=== PATIENT | female | born 1935 | race Caucasian/White ===

== ENCOUNTER 2018-08-14 15:23 | Outpatient (RCR) | payer MEDICARE, OTHER ==
[~2018-08-14] VITALS: Ht 170.2 cm; Wt 65.8 kg
[2018-08-14] MEDS ORDERED: NS IV 1000 ML 1,000 ML ONE (15:26)
[2018-08-14] MEDS ORDERED: metroNIDAZOLE 500MG/100ML IVPB 100 ML IV ONE (15:45)
[2018-08-14] MEDS ORDERED: NS IV 1000 ML 1,000 ML IV SCH (15:45)
[2018-08-14 15:56] LABS: HEMOGLOBIN 12.5 G/DL (11.5-16.0); MEAN PLATELET VOLUME 9.8 FL (7.4-10.4); RED CELL DISTRIBUTION WIDTH 14.3 % (10.0-14.5); WHITE BLOOD COUNT 12.7 10^3/uL (4.3-11.0)
[2018-08-14 16:11] VITALS: BP 154/75
[2018-08-14 16:16] LABS: ALBUMIN 3.6 GM/DL (3.2-4.5); BILIRUBIN,TOTAL 0.3 MG/DL (0.1-1.0); CALCIUM 9.7 MG/DL (8.5-10.1); CREATININE SERUM 1.04 MG/DL (0.60-1.30); POTASSIUM 3.9 MMOL/L (3.6-5.0); TOTAL PROTEIN 6.4 GM/DL (6.4-8.2)
[2018-08-14 17:15] VITALS: BP 154/75
[2018-08-14 18:17] VITALS: BP 154/75
[2018-08-23] MEDS ORDERED: SPIR25TA5 PO (13:46)
[2018-08-23] MEDS ORDERED: ISOS30TA3 (13:46)
[2018-08-23] MEDS ORDERED: NIFE90TA33 PO (13:46)
[2018-08-23] MEDS ORDERED: PANT40TA3 PO (13:46)
[2018-08-23] MEDS ORDERED: LIPA1CAP67 PO (13:46)
[2018-08-23] MEDS ORDERED: COLE1TAB PO (13:46)
[2018-08-23] MEDS ORDERED: NEBI20TA2 PO (13:46)
[2018-08-23] MEDS ORDERED: SERT100T8 PO (13:46)
[2018-08-23] MEDS ORDERED: METR-145 PO (13:46)
[2018-08-23] MEDS ORDERED: MEMA1CAP3 PO (13:46)
[2018-08-23] MEDS ORDERED: TRAM50TA2 PO (13:46)
[2018-08-23] MEDS ORDERED: PROM12.59 PO (13:46)
[2018-08-24] MEDS ORDERED: ACET-2267 PO (10:00)
[2018-08-24] MEDS ORDERED: CHOL5000 PO (10:00)
[2018-08-24] MEDS ORDERED: ASPI-983 PO (10:00)
[2018-08-24] MEDS ORDERED: LIPA1CAP67 PO (10:00)
[2018-08-28] MEDS ORDERED: TRAM50TA2 PO (09:14)
[2018-08-28] MEDS ORDERED: ACHD5005 PO (09:14)
[2018-08-28] MEDS ORDERED: METR500T PO (09:14)
[2018-08-28] MEDS ORDERED: ENOX30DI4 SC (09:20)
[2018-09-11] MEDS ORDERED: ONDN4T PO (10:54)
[2018-09-11] MEDS ORDERED: ASPI325T32 PO (10:54)
[2018-09-11] MEDS ORDERED: TRAM50TA2 PO (10:54)
[2018-09-11] MEDS ORDERED: HYDR-3812 PO (10:54)
[2018-09-13] MEDS ORDERED: PROM25TA14 PO (08:40)
[2018-09-13] MEDS ORDERED: ACET-2267 PO (08:40)
== END 2018-09-13 | disposition home or self-care (01) ==
LOC: SDC 15:23
PROVIDERS: ATTEND Nurse Practitioner Family
DX: K85.90 Acute pancreatitis without necrosis or infection, unspecified (principal)
CPT/HCPCS: 36415; 80053; 82150; 83690; 85027; 96360

== ENCOUNTER 2018-08-23 13:05 | Inpatient (IN) | payer MEDICARE, OTHER ==
[~2018-08-23] VITALS: Ht 165.1 cm; Wt 74.5 kg
[2018-08-23 13:18] LABS: BASOPHILS % (AUTO) 0 % (0-10); EOSINOPHILS # (AUTO) 0.1 10^3/uL (0.0-0.3); EOSINOPHILS % (AUTO) 1 % (0-10); HEMATOCRIT 39 % (35-52); HEMOGLOBIN 12.6 G/DL (11.5-16.0); LYMPHOCYTES # (AUTO) 2.4 X 10^3 (1.0-4.0); LYMPHOCYTES % (AUTO) 17 % (12-44); MEAN CORPUSCULAR HEMOGLOBIN 30 PG (25-34); MEAN CORPUSCULAR HGB CONC 32 G/DL (32-36); MEAN CORPUSCULAR VOLUME 94 FL (80-99); MEAN PLATELET VOLUME 9.8 FL (7.4-10.4); MONOCYTES # (AUTO) 1.5 X 10^3 (0.0-1.0); MONOCYTES % (AUTO) 11 % (0-12); NEUTROPHILS # (AUTO) 9.8 X 10^3 (1.8-7.8); NEUTROPHILS % (AUTO) 71 % (42-75); PLATELET COUNT 475 10^3/uL (130-400); RED CELL DISTRIBUTION WIDTH 14.7 % (10.0-14.5); WHITE BLOOD COUNT 13.7 10^3/uL (4.3-11.0)
--- NOTE | 2018-08-23 13:22 | ED Trauma-Multisystem ---
General Chief Complaint: Trauma-Non Activation Stated Complaint: FALL/HEAD INJ Source of Information: Patient Exam Limitations: No Limitations History of Present Illness Date Seen by Provider: Aug 23, 2018 Time Seen by Provider: 13:17 Initial Comments Patient was walking back to her room assisted by walker when she lost her balance and fell. She struck her head on the ground. Nursing staff at the longterm. Patient said she was unconscious for an unknown period of time. EMS was summoned. She was semiconscious on their arrival. She was noted to have a shortened and rotated left leg. She is unconscious on arrival. Her only complaint is left hip pain. She is alert and oriented to person only. She is unable to provide history due to her symptoms. Allergies and Home Medications Allergies Coded Allergies: Sulfa (Sulfonamide Antibiotics) (Unverified Allergy, Unknown, 08/14/18) codeine (Unverified Allergy, Unknown, 08/14/18) Patient Home Medication List Home Medication List Reviewed: Yes Review of Systems Review of Systems Constitutional: no symptoms reported (patient unable to provide complete review of systems due to dementia and head injury) Musculoskeletal: joint pain All Other Systems Reviewed Negative Unless Noted: Yes Physical Exam Vital Signs Vital Signs - First Documented 08/23/18 13:32 Temp 98.3 Pulse 66 Resp 18 B/P (MAP) 126/64 (84) Pulse Ox 99 Height, Weight, BMI Height: 5'7.00" Weight: 145lbs. 0.0oz. 65.640039mq; BMI Method: General Appearance: No Apparent Distress, WD/WN Head: No Evidence of Injury Eyes: Bilateral Eye Normal Inspection, Bilateral Eye PERRL, Bilateral Eye EOMI Ears, Nose, Throat: Hearing Grossly Normal Neck: Other (in c-collar) Cardiovascular: Regular Rate, Rhythm, No Edema Respiratory: Lungs Clear, Normal Breath Sounds Gastrointestinal: Soft Extremity: Other (left leg shortened and externally rotated. Pain with movement of hip) Neurologic/Psychiatric: Alert, gettering operator II-XII Norm as Tested; No EOM Palsy, No Facial Droop, No Motor Weakness Skin: Normal Color, Warm/Dry Lymphatic: No Adenopathy Telly Coma Score Best Eye Response ([place]): (4) Open Spontaneously Best Verbal Response ([place]): (4) Confused Conversation Best Motor Response ([place]): (6) Obeys Commands Progress/Results/Core Measures Results/Orders Lab Results Laboratory Tests Test 08/23/18 13:08 08/23/18 14:33 Range/Units White Blood Count 13.7 H 4.3-11.0 10^3/uL Red Blood Count 4.18 L 4.35-5.85 10^6/uL Hemoglobin 12.6 11.5-16.0 G/DL Hematocrit 39 35-52 % Mean Corpuscular Volume 94 80-99 FL Mean Corpuscular Hemoglobin 30 25-34 PG Mean Corpuscular Hemoglobin Concent 32 32-36 G/DL Red Cell Distribution Width 14.7 H 10.0-14.5 % Platelet Count 475 H 130-400 10^3/uL Mean Platelet Volume 9.8 7.4-10.4 FL Neutrophils (%) (Auto) 71 42-75 % Lymphocytes (%) (Auto) 17 12-44 % Monocytes (%) (Auto) 11 0-12 % Eosinophils (%) (Auto) 1 0-10 % Basophils (%) (Auto) 0 0-10 % Neutrophils # (Auto) 9.8 H 1.8-7.8 X 10^3 Lymphocytes # (Auto) 2.4 1.0-4.0 X 10^3 Monocytes # (Auto) 1.5 H 0.0-1.0 X 10^3 Eosinophils # (Auto) 0.1 0.0-0.3 10^3/uL Basophils # (Auto) 0.0 0.0-0.1 10^3/uL Prothrombin Time 14.1 12.2-14.7 SEC INR Comment 1.1 0.8-1.4 Activated Partial Thromboplast Time 29 24-35 SEC Sodium Level 141 135-145 MMOL/L Potassium Level 3.3 L 3.6-5.0 MMOL/L Chloride Level 106 98-107 MMOL/L Carbon Dioxide Level 22 21-32 MMOL/L Anion Gap 13 5-14 MMOL/L Blood Urea Nitrogen 13 7-18 MG/DL Creatinine 1.13 0.60-1.30 MG/DL Estimat Glomerular Filtration Rate 46 BUN/Creatinine Ratio 12 Glucose Level 161 H 70-105 MG/DL Calcium Level 9.1 8.5-10.1 MG/DL Corrected Calcium 9.7 8.5-10.1 MG/DL Total Bilirubin 0.2 0.1-1.0 MG/DL Aspartate Amino Transf (AST/SGOT) 33 5-34 U/L Alanine Aminotransferase (ALT/SGPT) 22 0-55 U/L Alkaline Phosphatase 56 40-136 U/L Total Protein 5.8 L 6.4-8.2 GM/DL Albumin 3.2 3.2-4.5 GM/DL Urine Color YELLOW Urine Clarity CLEAR Urine pH 5 5-9 Urine Specific [place] 1.015 L 1.016-1.022 Urine Protein 2+ H NEGATIVE Urine Glucose (UA) NEGATIVE NEGATIVE Urine Ketones NEGATIVE NEGATIVE Urine Nitrite POSITIVE H NEGATIVE Urine Bilirubin NEGATIVE NEGATIVE Urine Urobilinogen NORMAL NORMAL MG/DL Urine Leukocyte Esterase 2+ H NEGATIVE Urine RBC (Auto) 1+ H NEGATIVE Urine RBC 0-2 /HPF Urine WBC 0-2 /HPF Urine Crystals NONE /LPF Urine Bacteria TRACE /HPF Urine Casts PRESENT /LPF Urine Hyaline Casts 10-25 H /LPF Urine Mucus NEGATIVE /LPF Urine Culture Indicated YES My Orders Orders - CAROLINE JOHNS MD Cbc With Automated Diff (08/23/18 13:09) Comprehensive Metabolic Panel (08/23/18 13:09) Protime With Inr (08/23/18 13:09) Partial Thromboplastin Time (08/23/18 13:09) Ua Culture If Indicated (08/23/18 13:09) Chest 1 View, Ap/Pa Only (08/23/18 13:09) Pelvis With Left Hip 2-3 Views (08/23/18 13:09) Ct Head/Cervical Spine Wo (08/23/18 13:09) Urine Culture (08/23/18 14:33) Vital Signs/I&O 08/23/18 13:32 Temp 98.3 Pulse 66 Resp 18 B/P (MAP) 126/64 (84) Pulse Ox 99 Departure Communication (Admissions) Time/Spoke to Admitting Phy: 15:[address] Salazar who Will admit. Also discussed with Dr. Solano who to surgery on PT tomorrow. Impression Primary Impression: Head injury Additional Impression: Intertrochanteric fracture of left femur Disposition: ADMITTED INPATIENT Condition: Stable Admissions Decision to Admit Reason: Admit from ER (General) Decision to Admit/Date: Aug 23, 2018 Time/Decision to Admit Time: 15:18 Departure-Patient Inst. Referrals: HANG SALAZAR MD (PCP/Family) Primary Care Physician CAROLINE JOHNS MD Aug 23, 2018 13:21
[2018-08-23 13:28] LABS: INR 1.1 (0.8-1.4); PROTHROMBIN TIME PATIENT 14.1 SEC (12.2-14.7)
[2018-08-23 13:37] LABS: ALBUMIN 3.2 GM/DL (3.2-4.5); BILIRUBIN,TOTAL 0.2 MG/DL (0.1-1.0); CALCIUM 9.1 MG/DL (8.5-10.1); CREATININE SERUM 1.13 MG/DL (0.60-1.30); POTASSIUM 3.3 MMOL/L (3.6-5.0); TOTAL PROTEIN 5.8 GM/DL (6.4-8.2)
[2018-08-23] MEDS ORDERED: PROM12.59 PO (13:46)
[2018-08-23] MEDS ORDERED: NIFE90TA33 PO (13:46)
[2018-08-23] MEDS ORDERED: LIPA1CAP67 PO (13:46)
[2018-08-23] MEDS ORDERED: PANT40TA3 PO (13:46)
[2018-08-23] MEDS ORDERED: ISOS30TA3 (13:46)
[2018-08-23] MEDS ORDERED: SERT100T8 PO (13:46)
[2018-08-23] MEDS ORDERED: SPIR25TA5 PO (13:46)
[2018-08-23] MEDS ORDERED: NEBI20TA2 PO (13:46)
[2018-08-23] MEDS ORDERED: COLE1TAB PO (13:46)
[2018-08-23] MEDS ORDERED: TRAM50TA2 PO (13:46)
[2018-08-23] MEDS ORDERED: MEMA1CAP3 PO (13:46)
[2018-08-23] MEDS ORDERED: METR-145 PO (13:46)
--- NOTE | 2018-08-23 14:14 | Diagnostic Imaging Report ---
Indication: Left hip injury from a fall AP view pelvis and 2 views of the left hip show a comminuted intertrochanteric fracture of the left hip with reduction of the femoral angle. Impression: Comminuted intertrochanteric fracture left hip. Critical finding Report was called to Dr. Kaplan by jesus at 2:13 p.m. Dictated by: Dictated on workstation # [id number]
--- NOTE | 2018-08-23 14:15 | Diagnostic Imaging Report ---
INDICATION: Left hip fracture. Portable chest at 01:56 p.m. FINDINGS: Heart size and pulmonary vascularity are normal. Lungs are clear. There are no effusions or pneumothoraces. IMPRESSION: Negative chest. Dictated by: Dictated on workstation # [id number]
--- OUTSIDE RECORDS SUMMARY | 2018-08-23 14:38 | XMS REPORT | CCD ---
Author Loretta Law Organization Yolanda Michelle MD, [facility] Address [address] [place] [address] Phone Care Team Providers Care Legal Administrative Secretary Name Role Phone PP Unavailable CCM Unavailable Summary Purpose Interface Exchange Insurance Providers Payer name Policy type / Coverage type Covered green party ID Effective Begin Date Effective End Date WPS Medicare Part B Medicare Part B [id number] Unknown [employer] Medicare Part B [id number] Unknown Family history Mother Diagnosis Age At Onset Cancer Unknown Colon cancer Unknown Father Diagnosis Age At Onset Hypertension Unknown Cancer Unknown Arthritis Unknown Social History No Social History data Allergies, Adverse Reactions, Alerts Substance Reaction Codes Entered Date Inactivated Date Status CODEINE nausea RxNorm: 2670 08/14/2018 No Inactive Date Active SULFA (SULFONAMIDES) nausea, Unknown 08/14/2018 No Inactive Date Active Past Medical History Illness Codes Condition Status Onset Date Resolved Date Dementia in other diseases classified elsewhere without behavioral disturbance ICD-9: 294.10 ICD-10: F02.80 Active 08/14/2018 Unknown Essential (primary) hypertension ICD-9: 401.1 ICD-10: I10 Active 08/14/2018 Unknown Idiopathic acute pancreatitis without necrosis or infection ICD-9: 577.0 ICD-10: K85.00 Active 08/14/2018 Unknown Problems Condition Codes Effective Dates Condition Status Dementia in other diseases classified elsewhere without behavioral disturbance ICD-9: 294.10 ICD-10: F02.80 08/14/2018 Active Essential (primary) hypertension ICD-9: 401.1 ICD-10: I10 08/14/2018 Active Idiopathic acute pancreatitis without necrosis or infection ICD-9: 577.0 ICD-10: K85.00 08/14/2018 Active Medications Medication Codes Instructions Start Date Stop Date Status Fill Instructions aspirin 81 mg tablet RxNorm: 946913 1 Tablet(s) PO daily 201809/12/2018 Active Bystolic 20 mg tablet RxNorm: 682618 1 Tablet(s) PO daily 201809/12/2018 Active Creon 36,000 unit-114,000 unit-180,000 unit capsule, delayed release RxNorm: 7334920 2 Capsule(s) PO TID No Start Date Active promethazine 12.5 mg tablet RxNorm: 481911 1 Tablet(s) PO Q4H as needed No Start Date Active colestipol 1 gram tablet RxNorm: 0986951 1 Tablet(s) PO BID No Start Date Active Tylenol 500 mg RxNorm : 2 PO Q4H as needed No Start Date Active Creon 36,000 unit-114,000 unit-180,000 unit capsule, delayed release RxNorm: 9915944 1 Capsule(s) PO as needed No Start Date Active Vitamin D3 5,000 unit tablet RxNorm: 453801 1 Tablet(s) PO daily No Start Date Active Namzaric 28 mg-10 mg capsule sprinkle,extended release RxNorm: 6754827 1 Capsule(s ) PO daily No Start Date Active spironolactone 25 mg tablet RxNorm: 184831 1/2 Tablet(s) PO daily No Start Date Active Protonix 40 mg tablet,delayed release RxNorm: 187898 1 Tablet(s) PO daily No Start Date Active nifedipine ER 90 mg tablet,extended release 24 hr RxNorm: 3904843 1 Tablet(s) PO QHS No Start Date Active sertraline 100 mg tablet RxNorm: 006580 2 Tablet(s) PO daily No Start Date Active tramadol 50 mg tablet RxNorm: 424758 1 Tablet(s) PO Q6 as needed No Start Date Active Medication Administered No Medication Administered data Immunizations No Immunization data Assessments Condition Codes Effective Dates Essential (primary) hypertension ICD-10: I10 ICD-9: 401.1 08/14/2018 Dementia in other diseases classified elsewhere without behavioral disturbance ICD-10: F02.80 ICD-9: 294.10 08/14/2018 Idiopathic acute pancreatitis without necrosis or infection ICD-10: K85.00 ICD-9: 577.0 08/14/2018 Reason For Visit Reason For Visit Effective Dates Notes hypertension 08/14/2018 Results No Results data Review of Systems System Result Effective Dates Constitutional recent illness 08/14/2018 Constitutional No anorexia 08/14/2018 Constitutional No night sweats 2018 Constitutional No chills 08/14/2018 Constitutional No diaphoresis 08/14/2018 Constitutional fatigue 08/14/2018 Constitutional No fever 08/14/2018 Constitutional No insomnia 08/14/2018 Constitutional No malaise 08/14/2018 Constitutional No weight loss 08/14/2018 Constitutional No weight gain 08/14/2018 Eyes No eye discharge 08/14/2018 Eyes No eye erythema 08/14/2018 Ears/Nose/Throat/Neck No dizziness 2018 Cardiovascular No chest pain/pressure Cardiovascular No dyspnea 08/14/2018 Cardiovascular hypertension 08/14/2018 Cardiovascular fatigue 08/14/2018 Respiratory No cough 08/14/2018 Gastrointestinal abdominal pain 2018 Gastrointestinal No constipation 2018 Gastrointestinal diarrhea 08/14/2018 Gastrointestinal No vomiting 08/14/2018 Gastrointestinal No nausea 08/14/2018 Genitourinary/Nephrology No dysuria 08/14 Musculoskeletal No joint complaint 2018 Dermatologic No sores 08/14/2018 Dermatologic No rash 08/14/2018 Neurologic memory loss 08/14/2018 Psychiatric anxiety 08/14/2018 Endocrine No cold sensitivity 08/14/2018 Physical Exam Exam Name System Name Item Name Status Result Effective Dates Notes Full Exam - General 1994 Constitutional general appearance Overall: well developed 08/14/2018 None Full Exam - General 1994 Constitutional general appearance Overall: in no acute distress 08/14/2018 None Full Exam - General 1994 Constitutional general appearance Overall: well nourished 08/14/2018 None Full Exam - General 1994 Psychiatric orientation/consciousness Overall: oriented to person, place and time 08/14/2018 None Full Exam - General 1994 Neurologic cranial nerves Overall: crainial nerves 2 - 12 grossly intact 08/14/2018 None Full Exam - General 1994 Integument inspection of skin Overall: few scattered moles, no gross abnormalities 08/14/2018 None Full Exam - General 1994 Musculoskeletal head and neck Overall: head atraumatic 08/14/2018 None Full Exam - General 1994 Abdomen abdominal exam Upper quadrant: tender to palpation 08/14/2018 None Full Exam - General 1994 Abdomen abdominal exam Lower quadrant: tender to palpation 08/14/2018 None Full Exam - General 1994 Cardiovascular auscultation of heart Overall: regular rate 08/14/2018 None Full Exam - General 1994 Cardiovascular auscultation of heart Overall: normal heart sounds 08/14/2018 None Full Exam - General 1994 Respiratory auscultation Overall: breath sounds clear bilaterally 08/14/2018 None Full Exam - General 1994 Respiratory respiratory effort/rhythm Overall: no retractions 08/14/2018 None Full Exam - General 1994 Respiratory respiratory effort/rhythm Overall: normal rate 08/14/2018 None Full Exam - General 1994 Ears/Nose/Throat otoscopic exam Overall: external auditory canals clear 08/14/2018 None Full Exam - General 1994 Ears/Nose/Throat otoscopic exam Overall: tympanic membranes clear 08/14/2018 None Full Exam - General 1994 Ears/Nose/Throat oral cavity/pharynx/larynx Overall: oral mucosa clear 08/14/2018 None Full Exam - General 1994 Eyes pupils and irises Overall: pupils equal, round, reactive to light and accomodation 08/14/2018 None Full Exam - General 1994 Eyes conjunctiva /eyelids Overall: conjunctiva clear 08/14/2018 None Procedures No Procedures data Vital Signs Date Vital 08/14/2018 Blood Pressure 1: 142/70 Code : 8480-6 BMI: 23.7 Code : 72839-4 Heart Rate 1 : 76 bpm Height: 5'6" SpO2: 96% Weight: 147 lbs Functional Status No Functional Status data History of Present Illness Symptom Name Status Result Effective Date Notes Quality primary hypertension 08/14/2018 None Onset of Symptom _ years ago 08/14/2018 None Blood Pressure Values patient checking blood pressure at home - did not bring in readings [facility] Pertinent Findings Denies anxiety 08/14/2018 None Pertinent Findings confusion 08/14/2018 None Pertinent Findings Denies dyspnea 08/14/2018 None Location diffusely None Quality Denies intermittent 08/14/2018 None Pertinent Findings Denies back pain 08/14/2018 None Severity not consistently severe symptoms, the symptoms fluctuate from no symptoms to anxiety and headaches 08/14/2018 None Frequency of Episodes unchanged 08/14/2018 None Triggers no known associated factors 08/14/2018 None Alleviating Factors medication 08/14/2018 None Advance Directives No Advance Directive data Encounters Encounter Performer Location Codes Date OFFICE VISIT, NEW - LEVEL 3 Diagnosis: Essential (primary) hypertension[ICD10: I10] Diagnosis: Idiopathic acute pancreatitis without necrosis or infection[ICD10: K85.00] Diagnosis: Dementia in other diseases classified elsewhere without behavioral disturbance[ICD10: F02.80] [facility] CPT-4: 43068 08/14/2018 Plan of Care Planned Activity Notes Codes Status Date Visit Plan: Hypertension - well controlled - continue with current medications, continue with no added salt diet. Pt has been encouraged to exercise daily. The pt has been advised to call the office if there are any acute concerns about change in blood pressure readings at home. Pancreatitis - patient is having pain today -will send for outpatient IVF and labs -start flagyl IV and then continues orally as an outpatient -start clear liquid diet x 48 hours then advance to low fat diet -continue creon with meals and snack - patient and sister verbalized understanding of plan. Memory loss-continue namzaric -no changes in medications 08/14/2018 Patient Education: Patient Medication Summary Completed 08/14/2018 Instructions Comment . Hypertension - well controlled - continue with current medications, continue with no added salt diet. Pt has been encouraged to exercise daily. The pt has been advised to call the office if there are any acute concerns about change in blood pressure readings at home. Pancreatitis -patient is having pain today -will send for outpatient IVF and labs -start flagyl IV and then continues orally as an outpatient -start clear liquid diet x 48 hours then advance to low fat diet -continue creon with meals and snack -patient and sister verbalized understanding of plan. Memory loss-continue namzaric -no changes in medications
--- OUTSIDE RECORDS SUMMARY | 2018-08-23 14:39 | XMS REPORT | CCD ---
Author Loretta Law Organization Yolanda Michelle MD, [facility] Address [address] [place] [address] Phone Care Team Providers Care Group President Name Role Phone PP Unavailable CCM Unavailable Summary Purpose Interface Exchange Insurance Providers Payer name Policy type / Coverage type Covered constitution party ID Effective Begin Date Effective End Date WPS Medicare Part B Medicare Part B [id number] Unknown [employer] [place] Medicare Part B [id number] Unknown Family history Mother Diagnosis Age At [...] Fill Instructions aspirin 81 mg tablet RxNorm: 357785 1 Tablet(s) PO daily 201809/12/2018 Active Bystolic 20 mg tablet RxNorm: 131756 1 Tablet(s) PO daily 201809/12/2018 Active Creon 36,000 unit-114,000 unit-180,000 unit capsule, delayed release RxNorm: 7094186 2 Capsule(s) PO TID No Start Date Active promethazine 12.5 mg tablet RxNorm: 667159 1 Tablet(s) PO Q4H as needed No Start Date Active colestipol 1 gram tablet RxNorm: 5139789 1 Tablet(s) PO BID No Start Date Active Tylenol 500 mg RxNorm : 2 PO Q4H as needed No Start Date Active Creon 36,000 unit-114,000 unit-180,000 unit capsule, delayed release RxNorm: 4811839 1 Capsule(s) PO as needed No Start Date Active Vitamin D3 5,000 unit tablet RxNorm: 182810 1 Tablet(s) PO daily No Start Date Active Namzaric 28 mg-10 mg capsule sprinkle,extended release RxNorm: 9058536 1 Capsule(s ) PO daily No Start Date Active spironolactone 25 mg tablet RxNorm: 572013 1/2 Tablet(s) PO daily No Start Date Active Protonix 40 mg tablet,delayed release RxNorm: 672651 1 Tablet(s) PO daily No Start Date Active nifedipine ER 90 mg tablet,extended release 24 hr RxNorm: 1262316 1 Tablet(s) PO QHS No Start Date Active sertraline 100 mg tablet RxNorm: 419828 2 Tablet(s) PO daily No Start Date Active tramadol 50 mg tablet RxNorm: 089237 1 Tablet(s) PO Q6 as needed No [...] Code : 8480-6 BMI: 23.7 Code : 62387-7 Heart Rate 1 : 76 bpm Height: 5'6" SpO2: 96% Weight: 147 lbs Functional Status No Functional Status data History of Present Illness Symptom Name Status Result Effective Date Notes Quality primary hypertension 08/14/2018 None Onset of Symptom _ years ago 08/14/2018 None Blood Pressure Values patient checking blood pressure at home - did not bring in readings 2018 checked at [facility] monthly Pertinent Findings Denies anxiety 08/14/2018 [...] disturbance[ICD10: F02.80] [facility] CPT-4: 22238 08/14/2018 Plan of Care Planned Activity Notes [...]
--- OUTSIDE RECORDS SUMMARY | 2018-08-23 14:39 | XMS REPORT | Continuity of Care Document ---
Author Organization Unknown Address Unknown Allergies There is no data. Medications There is no data. Problems There is no data. Procedures There is no data. Results There is no data. Encounters ACCT No. Visit Date/Time Discharge Status Pt. Type Provider Facility Loc./Unit Complaint [id number] 08/09/2018 13:09:55 08/09/2018 23:59:59 CLS Outpatient
[2018-08-23 14:40] LABS: BILIRUBIN,URINE NEGATIVE (NEGATIVE); CLARITY,URINE CLEAR; COLOR,URINE YELLOW; GLUCOSE, URINE (UA) NEGATIVE (NEGATIVE); KETONES,URINE NEGATIVE (NEGATIVE); LEUKOCYTE ESTERASE ,URINE 2+ (NEGATIVE); NITRITE,URINE POSITIVE (NEGATIVE); PH,URINE 5 (5-9); PROTEIN,URINE 2+ (NEGATIVE); UROBILINOGEN,URINE NORMAL (NORMAL)
--- NOTE | 2018-08-23 14:42 | Diagnostic Imaging Report ---
PROCEDURE: CT head and CT cervical spine without contrast. TECHNIQUE: Multiple contiguous axial images were obtained through the brain and cervical spine without the use of intravenous contrast. Sagittal and coronal reformations through the cervical spine were then performed. Auto Exposure Controls were utilized during the CT exam to meet ALARA standards for radiation dose reduction. INDICATION: Fell while walking with reported loss of consciousness. Complaining of left leg and head pain. COMPARISON: None available. FINDINGS: CT HEAD: There is atrophy and periventricular white matter small vessel disease but no acute extra-axial fluid collection or hemorrhage is found. There is no focal or generalized cerebral edema and no calvarial fracture deformity. The paranasal sinuses and orbits are unremarkable. There is no acute or post traumatic sequelae identified. CT CERVICAL SPINE: Multilevel ACDF C4 through C6 has been performed. The fusion appears solid and well incorporated. The hardware is intact. There is no evidence for pseudoarthrosis. The alignment across, above, and below the solid fusion appears anatomic. There is no cervical fracture or dislocation. No paravertebral hemorrhage. No high-grade canal stenosis. The facet relationships are nonacute. IMPRESSION: CT HEAD: There are some chronic senescent changes with no hemorrhage, fracture deformity, or acute abnormality. CT CERVICAL SPINE: Solid lower cervical multilevel ACDF with no cervical fracture, high-grade stenosis, or traumatic malalignment. Not mentioned above is a left thyroid lobe nodule which is nonspecific measuring 2 cm. Nonemergent outpatient sonographic correlation is recommended. Dictated by: Dictated on workstation # [id number]
[2018-08-23 14:47] LABS: BACTERIA,URINE TRACE /HPF; RBC,URINE 0-2 /HPF; WBC,URINE 0-2 /HPF
--- NOTE | 2018-08-23 15:20 | NUR ---
C-COLLAR REMOVED AT THIS TIME PER DR JOHNS.
[2018-08-23 15:53] VITALS: BP 157/82
[2018-08-23] MEDS ORDERED: CATHETER FLUSH 10 ML SYR IV PRN (16:30)
[2018-08-23] MEDS ORDERED: ONDANSETRON 4 MG/2 ML (SDV) Z0FRAN IV PRN (16:30)
[2018-08-23] MEDS ORDERED: fentaNYL INJECTION 100 MCG/2 ML AMP IV PRN (16:30)
--- NOTE | 2018-08-23 16:53 | NUR ---
MAYOFALGUNI BIGGSADAN Mejia admitted to room 420-1, with an admitting diagnosis of LEFT HIP FRACTURE AND LOC, on 08/23/18 from ED via CART, accompanied by SISTER AND STAFF. PINKY BRYANT introduced to surroundings, call light, bed controls, phone, TV, temperature control, lights, meal times, smoking policy, visitor policy, side rail policy, bathrooms and showers. Patient Rights given to patient in the handbook. PINKY BRYANT verbalizes understanding that [facility] is not responsible for the loss or damage to any personal effects or valuables that are kept in the patients posession during their hospitalization. The following Patient Care Plans were discussed with the SISTER: Discharge Planning, FRACTURE AND PAIN. PINKY BRYANT verbalizes understanding of Interdisciplinary Patient Education. Patient and/or family were informed about the Rapid Response Team and its purpose. ADMIT DONE BY IVELISSE OCAMPO OF PT TO BARNEY KUHN.
[2018-08-23] MEDS: fentaNYL INJECTION 100 MCG/2 ML AMP IV PRN ×2 (20:10→22:28)
[2018-08-23] MEDS: CATHETER FLUSH 10 ML SYR IV SCH (20:12)
--- NOTE | 2018-08-23 20:29 | History & Physicial ---
History of Present Illness History of Present Illness Reason for visit/HPI PT IS AN 83 Y/O FEMALE WHO IS A NEW PATIENT - OF 1 WEEK IN MY CLINIC. SHE RESIDES AT AN [facility] AND WAS APPARENTLY HAVING LUNCH AND FEELING IN HER USUAL STATE OF HEALTH. SHE FELL AFTER STANDING FROM THE LUNCH TABLE AND FELL TO THE GROUND, HITTING HER LEFT HIP. SHE WAS BROUGHT TO THE EMERGENCY DEPARTMENT FOR EVALUATION OF THE LEFT HIP DUE TO PAIN AND WAS FOUND TO HAVE A LEFT SIDED HIP FRACTURE. Date of Admission Aug 23, 2018 at 15:10 Date Seen by a Provider: Aug 23, 2018 Time Seen by a Provider: 20:00 I consulted on this patient on 08/23/18 20:00 Attending Physician Hang Michelle MD Admitting Physician Hang Michelle MD Consult ORTHOPEDIC SURGEON - DR. SINGH Allergies and Home Medications Allergies Coded Allergies: Sulfa (Sulfonamide Antibiotics) (Unverified Allergy, Unknown, 08/23/18) codeine (Verified Adverse Reaction, Mild, confusion, 08/23/18) okay with dr. michelle for hydrocodone Patient Home Medication List Home Medication List Reviewed: Yes Past Hwnhnii-Kcrinv-Tbjfug Hx Patient Social History Living Status: LIVES AT [facility] Employed/Student: retired Alcohol Use: Denies Use Recreational Drug Use: No Smoking Status: Never a Smoker 2nd Hand Smoke Exposure: No Physical Abuse Screen: No Sexual Abuse: No Recent Foreign Travel: No Contact w/other who traveled: No Recent Hopitalizations: No Recent Infectious Disease Expo: No Immunizations Up To Date Date of Pneumonia Vaccine: Jan 30, 2015 Seasonal Allergies Seasonal Allergies: No Surgeries Yes (MULTIPLE FRACTURES) Respiratory No Cardiovascular Yes Hypertension Neurological Yes Dementia Reproductive System : No Genitourinary No Gastrointestinal Yes (DIVERTICULITIS) Pancreatitis, Gall Bladder Disease Musculoskeletal No Endocrine History of Endocrine Disorders: No HEENT History of HEENT Disorders: No Loss of Vision: Denies Hearing Impairment: Denies Cancer No Psychosocial History of Psychiatric Problem: Yes Behavioral Health Disorders: Anxiety Integumentary History of Skin or Integumenta: Yes (SHINGLES) Blood Transfusions History of Blood Disorders: No Reviewed Nursing Assessment Reviewed/Agree w Nursing PMH: Yes Family Medical History Significant Family History: Heart Disease Family Hx: PATIENT CONFUSED Review of Systems Constitutional: No chills, No fever; malaise, weakness EENTM: No hoarseness, No throat pain Respiratory: No cough, No dyspnea on exertion, No short of breath Cardiovascular: No chest pain Gastrointestinal: abdominal pain (LUQ) Genitourinary: no symptoms reported, other (GONZALEZ IN PLACE) Musculoskeletal: other (LEFT HIP PAIN) Skin: no symptoms reported Psychiatric/Neurological: Anxiety, Weakness, Other (DEMENTIA/CONFUSION) All Other Systems Reviewed Negative Unless Noted: Yes Physical Exam Vital Signs Vital Signs - First Documented 08/23/18 13:32 Temp 98.3 Pulse 66 Resp 18 B/P (MAP) 126/64 (84) Pulse Ox 99 Capillary Refill : Less Than 3 SecondsLess Than 3 Seconds Height, Weight, BMI Height: 5'5.00" Weight: 156lbs. 8.0oz. 70.823276qm; 26.0 BMI Method:Stated General Appearance: WD/WN, Mild Distress (DUE TO PAIN) HEENT: PERRL/EOMI, Pharynx Normal Neck: Full Range of Motion, Non Tender, Supple Respiratory: Chest Non Tender, Lungs Clear, Normal Breath Sounds, No Accessory Muscle Use Cardiovascular: Regular Rate, Rhythm, No Edema Gastrointestinal: Normal Bowel Sounds, Soft, Other (VERY MILDY TTP OVER EPIGASTRIUM) Rectal: Deferred Extremity: Normal Capillary Refill, No Pedal Edema, Other (TTP LATERAL LEFT HIP WITH SOME SWELLING LATERAL LEFT HIP- NO BRUISING NOTED) Neurologic/Psychiatric: Alert, Other (ORIENTED TO PERSON, NOT PLACE OR TIME, FLAT AFFECT) Skin: Normal Color, Warm/Dry Lymphatic: No Adenopathy Assessment/Plan Assessment and Plan LEFT HIP FRACTURE URINARY TRACT INFECTION - NITRITE POSITIVE HYPERTENSION DEMENTIA DEPRESSION CHRONIC PANCREATITIS GERD LEFT HIP FRACTURE - COMMINUTED INTERTROCHANTERIC FRACTURE OF LEFT HIP. PLANNING ON SURGICAL FIXATION BY ORTHOPEDIC SURGEON - DR. SINGH TOMORROW EVENING AROUND 4PM PER NURSING REPORT. - DEFER TREATMENT/RECOMMENDATION FOR FOLLOW UP TO DR. SINGH. URINARY TRACT INFECTION, NITRITE POSITIVE WITH LEUKOCYTOSIS - IV ANTIBIOTICS - ROCEPHIN - AND MONITOR CULTURE REPORT. HYPERTENSION - VERIFY AND RESTART HOME MEDICATION TOMORROW MORNING. DEMENTIA - HOLD NAMENDA - WITH HER STOMACH ISSUES - THIS MEDICATION MAY BE SOMETHING THAT WE NEED TO LOOK AT STOPPING DUE TO HER CONSTANT GI UPSET - SINCE THE [facility] CAN CAUSE STOMACH UPSET THIS MEDICATION MAY BE CAUSING MORE HARM THAN SHE WILL GET BENEFIT FROM FOR HER DEMENTIA STABILIZATION. DEPRESSION - RESUME HOME MEDICATION TOMORROW ONCE MEDICATIONS ARE RECONCILED BY PHARMACY. CHRONIC PANCREATITIS- RESTART PANCRELIPASE TOMORROW - PT IS NOT CURRENTLY TAKING PO FOOD/FLUIDS VERY WELL AT THIS TIME AND A SHORT TIME OFF OF THE PANCREATIC ENZYMES WILL NOT CAUSE PROBLEMS. GERD - RESTART PPI PT IS AT HIGH RISK OF FURTHER DECLINE DUE TO HER DEMENTIA AND DEBILITATED STATE. Admission Diagnosis LEFT HIP FRACTURE URINARY TRACT INFECTION - NITRITE POSITIVE HYPERTENSION DEMENTIA DEPRESSION CHRONIC PANCREATITIS GERD Admission Status: Inpatient Order (span 2 midnights) Reason for Inpatient Admission: INPT ADMISSION WITH NEED FOR MORE THAN 72 HOURS IN HOSPITAL WITH PLAN FOR SURGICAL FIXATION IN THE NEXT 24 HOURS AND PT WILL NEED PROLONGED TIME FOR RECOVERY DUE TO HER DEMENTIA AND ALREADY DEBILITATED STATE. Clinical Quality Measures DVT/VTE Risk/Contraindication: Risk Factor Score Per Nursin RFS Level Per Nursing on Admit: 4+=Very High HANG MICHELLE MD Aug 23, 2018 20:29
[2018-08-23 20:30] VITALS: BP 171/62
--- NOTE | 2018-08-23 20:30 | NUR ---
SPOKE WITH DAUGHTER DPOA AND SHE STATED THAT CODEINE MAKES PT MORE CONFUSED. SPOKE WITH DR. URRUTIA AND SHE OKAYED FOR PT TO HAVE HYDROCODONE BC NOT A TRUE ALLERGY.
--- NOTE | 2018-08-23 21:51 | NUR ---
TELEPHONE ORDERS RECEIVED FOR ROCEPHIN 1GM Q24HRS STARTING NOW AND NORMAL SALINE AT 75ML/HR.
[2018-08-23] MEDS: cefTRIAXone FOR IV USE 1,000 MG in WATER (STERILE) FOR INJECTION 10 ML IV SCH (22:28)
[2018-08-23] MEDS: NS IV 1000 ML 1,000 ML IV SCH (22:28)
[2018-08-24] VITALS (12 sets, daily range): BP systolic 134–185; BP diastolic 61–100
[2018-08-24] MEDS: fentaNYL INJECTION 100 MCG/2 ML AMP IV PRN ×8 (00:06→20:07)
[2018-08-24] MEDS: HYDROcodone/APAP 5 MG/325 MG (LORTAB) TAB PO PRN ×2 (00:07→21:34)
[2018-08-24] MEDS: CATHETER FLUSH 10 ML SYR IV SCH ×3 (06:19→21:33)
--- NOTE | 2018-08-24 09:02 | Progress Note ---
Subjective Date Seen by a Provider: Aug 24, 2018 Time Seen by a Provider: 09:02 Subjective/Events-last exam PT REPORTS THAT SHE HAS LEFT HIP PAIN,SHE DOES NOT REMEMBER THE EVENTS SURROUNDING HER FALL AND FRACTURE. SHE DENIES DIZZINESS, HEADACHE, ABDOMINAL PAIN, NAUSEA Review of Systems General: Fatigue HEENT: No Head Aches Pulmonary: No Dyspnea, No Cough Cardiovascular: No: Chest Pain, Palpitations Gastrointestinal: No: Nausea, Abdominal Pain Genitourinary: No Dysuria Neurological: Weakness, Confusion (CHRONIC) Objective Exam Last Set of Vital Signs Vital Signs Date Time Temp Pulse Resp B/P (MAP) Pulse Ox O2 Delivery O2 Flow Rate FiO2 08/24/18 08:00 98 Room Air 08/24/18 04:00 98.8 71 18 175/74 (107) Capillary Refill : Less Than 3 SecondsLess Than 3 Seconds I&O Intake and Output 08/24/18 00:00 Intake Total 10 ml Output Total 125 ml Balance -115 ml IV Total 10 ml Output Urine Total 125 ml Daily Weight Change Unsure Unsure General: Alert, Mild Distress (DUE TO PAIN) HEENT: Atraumatic, PERRLA Neck: Supple Lungs: Clear to Auscultation Heart: Regular Rate Abdomen: Normal Bowel Sounds, Soft, No Tenderness Skin: No Rashes Neuro: Cranial Nerves 3-12 NL Psych/Mental Status: Mental Status NL, Mood NL Results Lab Laboratory Tests 08/23/18 13:08: White Blood Count 13.7H, Red Blood Count 4.18L, Hemoglobin 12.6, Hematocrit 39, Mean Corpuscular Volume 94, Mean Corpuscular Hemoglobin 30, Mean Corpuscular Hemoglobin Concent 32, Red Cell Distribution Width 14.7H, Platelet Count 475H, Mean Platelet Volume 9.8, Neutrophils (%) (Auto) 71, Lymphocytes (%) (Auto) 17, Monocytes (%) (Auto) 11, Eosinophils (%) (Auto) 1, Basophils (%) (Auto) 0, Neutrophils # (Auto) 9.8H, Lymphocytes # (Auto) 2.4, Monocytes # (Auto) 1.5H, Eosinophils # (Auto) 0.1, Basophils # (Auto) 0.0, Prothrombin Time 14.1, INR Comment 1.1, Activated Partial Thromboplast Time 29, Sodium Level 141, Potassium Level 3.3L, Chloride Level 106, Carbon Dioxide Level 22, Anion Gap 13 , Blood Urea Nitrogen 13, Creatinine 1.13, Estimat Glomerular Filtration Rate 46 , BUN/Creatinine Ratio 12, Glucose Level 161H, Calcium Level 9.1, Corrected Calcium 9.7, Total Bilirubin 0.2, Aspartate Amino Transf (AST/SGOT) 33, Alanine Aminotransferase (ALT/SGPT) 22, Alkaline Phosphatase 56, Total Protein 5.8L, Albumin 3.2 08/23/18 14:33: Urine Color YELLOW, Urine Clarity CLEAR, Urine pH 5, Urine Specific [place] 1.015L, Urine Protein 2+H, Urine Glucose (UA) NEGATIVE, Urine Ketones NEGATIVE, Urine Nitrite POSITIVEH, Urine Bilirubin NEGATIVE, Urine Urobilinogen NORMAL, Urine Leukocyte Esterase 2+H, Urine RBC (Auto) 1+H, Urine RBC 0-2, Urine WBC 0-2 , Urine Crystals NONE, Urine Bacteria TRACE, Urine Casts PRESENT, Urine Hyaline Casts 10-25H, Urine Mucus NEGATIVE, Urine Culture Indicated YES Assessment/Plan Assessment/Plan Assess & Plan/Chief Complaint LEFT HIP FRACTURE URINARY TRACT INFECTION - NITRITE POSITIVE HYPERTENSION DEMENTIA DEPRESSION CHRONIC PANCREATITIS GERD LEFT HIP FRACTURE - COMMINUTED INTERTROCHANTERIC FRACTURE OF LEFT HIP. PLANNING ON SURGICAL FIXATION BY ORTHOPEDIC SURGEON - DR. SINGH THIS EVENING AROUND 4PM PER NURSING REPORT. - DEFER TREATMENT/RECOMMENDATION FOR FOLLOW UP TO DR. SINGH. URINARY TRACT INFECTION, NITRITE POSITIVE WITH LEUKOCYTOSIS - IV ANTIBIOTICS - ROCEPHIN - AND MONITOR CULTURE REPORT. HYPERTENSION - VERIFY AND RESTART HOME MEDICATION TOMORROW MORNING. DEMENTIA - HOLD NAMENDA - WITH HER STOMACH ISSUES - THIS MEDICATION MAY BE SOMETHING THAT WE NEED TO LOOK AT STOPPING DUE TO HER CONSTANT GI UPSET - SINCE THE [facility]PT CAN CAUSE STOMACH UPSET THIS MEDICATION MAY BE CAUSING MORE HARM THAN SHE WILL GET BENEFIT FROM FOR HER DEMENTIA STABILIZATION. DEPRESSION - RESUME HOME MEDICATION CHRONIC PANCREATITIS- RESTART PANCRELIPASE GERD - RESTART PPI PT IS AT HIGH RISK OF FURTHER DECLINE DUE TO HER DEMENTIA AND DEBILITATED STATE. Clinical Quality Measures Admission Status Admission Dx LEFT HIP FRACTURE URINARY TRACT INFECTION - NITRITE POSITIVE HYPERTENSION DEMENTIA DEPRESSION CHRONIC PANCREATITIS GERD DVT/VTE Risk/Contraindication: Risk Factor Score Per Nursin RFS Level Per Nursing on Admit: 4+=Very High HANG URRUTIA MD Aug 24, 2018 09:02
[2018-08-24] MEDS ORDERED: LIPA1CAP67 PO (10:00)
[2018-08-24] MEDS ORDERED: ASPI-983 PO (10:00)
[2018-08-24] MEDS ORDERED: CHOL5000 PO (10:00)
[2018-08-24] MEDS ORDERED: ACET-2267 PO (10:00)
--- NOTE | 2018-08-24 10:00 | NUR ---
DUE TO DEMENTIAL PT IS ON HER CALL LIGHT CONTINUALLY -- OFF AND ON THE BED DEL ROSARIO -- -- SHE HAS FREEDOM SPLINT ON IV SITE AND SHE PULLS IF OFF AND MOVE HER ARM SO IV BEEPS -- OR ASKS WHEN SHE IS HAVING SURGERY -- STAFF CONTINUE TO TRY TO REORIENTATE THE PT
--- NOTE | 2018-08-24 10:03 | NUR ---
UPDATED MED REC WITH PHYSICIAN'S ORDERS FROM [facility].
[2018-08-24] MEDS: NS IV 1000 ML 1,000 ML IV SCH ×2 (11:36→23:45)
--- NOTE | 2018-08-24 11:45 | NUR ---
CM/SS, respond to consult. Patient has established residency with [facility]. PLAN: Return patient to [facility] Medicare skilled status for recuperative therapies when medically stable. CARE Assessment pending. SUMMARY: Patient entered [facility] 06/29/18. Her sister Tracey Garcia reports patient has notably declined over the past month. The remaining family is patient and 3 siblings. October Luanne, Sister Legal Guardian/Conservator, ([facility]) [address] [place] [address] Career Development Counselor obtained a copy of the guardianship from [facility]/Loyda, to current chart. Tracey Garcia, Sister [address] [facility] [place] [address]
--- NOTE | 2018-08-24 14:00 | NUR ---
PT REMAINS VERY CONFUSED WHEN FAMILY NOT IN RM SHE IS ON LIGHT TO BE ON ND OFF BED DEL ROSARIO FOR POSSIBLE BM OR ASKING WHEN HER SURGERY WAS -- WN=HEN STAFF IN THE ASSESS PT FOR PAIN AND DISCOMFORT --
[2018-08-24] MEDS ORDERED: LIDOCAINE PF 2% 5 ML (XYLOCAINE) VIAL ONE (14:54)
[2018-08-24] MEDS ORDERED: proPOfol 200 MG/20 ML (DIPRIVAN) VIAL IV ONE (14:54)
[2018-08-24] MEDS ORDERED: ONDANSETRON 4 MG/2 ML (SDV) Z0FRAN ONE (14:54)
[2018-08-24] MEDS ORDERED: MIDAZOLAM 2 MG/2 ML (VERSED) VIAL ONE (14:55)
[2018-08-24] MEDS ORDERED: fentaNYL INJECTION 100 MCG/2 ML AMP ONE ×2 (14:55→17:58)
[2018-08-24] MEDS ORDERED: SEVOFLURANE (ULTANE) 15 ML INHAL SOLN ONE (14:58)
[2018-08-24] MEDS ORDERED: DEXAMETHASONE 10 MG/ML (DECADRON) 1 ML VIAL ONE (14:58)
[2018-08-24] MEDS ORDERED: ROCURONIUM 10 MG/ML 5 ML SYRINGE IV ONE (15:04)
--- NOTE | 2018-08-24 16:17 | NUR ---
PT TAKEN DOWN FOR SURG
[2018-08-24] MEDS: LACTATED RINGERS 1,000 ML IV PRN ×2 (16:30→17:36)
[2018-08-24] MEDS ORDERED: ceFAZolin INJECTION 2,000 MG ONE (16:59)
[2018-08-24] MEDS ORDERED: morphine INJ 10 MG/ML 1ML (SYR OR VIAL) IVP ONE (17:30)
[2018-08-24] MEDS ORDERED: ONDANSETRON 4 MG/2 ML (SDV) Z0FRAN IVP PRN (17:30)
[2018-08-24] MEDS ORDERED: MEPERIDINE (DEMEROL) INJ 50 MG/ML IVP ONE (17:30)
[2018-08-24] MEDS ORDERED: ISOFLURANE (FORANE) 15 ML/15 MIN INHALATION ONE ×6 (17:35→18:06)
[2018-08-24] MEDS ORDERED: NEOSTIGMINE 1 MG/ML 5 ML SYRINGE ONE (17:55)
[2018-08-24] MEDS ORDERED: GLYCOPYRROLATE 0.2 MG/ML (ROBINUL) 2 ML VIAL ONE (17:55)
[2018-08-24] MEDS ORDERED: ESMOLOL 100 MG/10 ML (BREVIBLOC) VIAL ONE (18:03)
--- NOTE | 2018-08-24 18:50 | Diagnostic Imaging Report ---
EXAMINATION: Fluoroscopy provided for hip pinning. INDICATION: Left femoral fracture. COMPARISON: Radiographs from 08/23/2018. FINDINGS: These intraoperative views demonstrate intramedullary fixation of the patient's prior comminuted left femoral intertrochanteric fracture. Spiral blade plate is present within the femoral neck. IMPRESSION: Open reduction internal fixation of a left femoral intertrochanteric fracture. Dictated by: Dictated on workstation # [id number]
[2018-08-24] MEDS: ENOXAPARIN 30 MG/0.3 ML (LOVENOX) SYR SC SCH (20:00)
--- NOTE | 2018-08-24 20:00 | NUR ---
1919 - Patient returned to floor from recovery with Faviola Salcedo, BAM. Report given to this RN that dressing to middle incision on left hip needing reinforced for bleeding. 1924 - ABD pad applied to reinforce middle incision on left hip. 1929 - ABD pad beginning to have visible bloody drainage. 1932 - Dr. Solano notified of situation and gives telephone order to hold pressure to incision site for 10-15 minutes and then change complete dressing to middle incision on left hip. order read back and confirmed. 1949 - New dressing if gauze pads and ABD cover to left hip middle incision. 1999 - No drainage noted from this incision at this time. JEAN Stanley for Dr. Solano called and asked by this RN if he wants us to administer 2000 dose of lovenox. Kale Self gives telephone order to hold tonights 2000 dose of lovenox and resume it once again tomorrow morning with the 0800 dose. Order read back and confirmed.
[2018-08-24] MEDS: cefTRIAXone FOR IV USE 1,000 MG in WATER (STERILE) FOR INJECTION 10 ML IV SCH (21:33)
--- NOTE | 2018-08-24 22:02 | OPERATIVE REPORT ---
DATE OF SERVICE: 08/24/2018 SURGEON: Aki Solano DO STEM PROCESSING MACHINE OPERATOR: Bethany Self____, JEAN This is a medically necessary procedure. Assistance was necessary for retraction of vital neurovascular structures. PREOPERATIVE DIAGNOSES: 1. Osteoporosis. 2. Left hip intertrochanteric fracture. POSTOPERATIVE DIAGNOSES: 1. Osteoporosis. 2. Left hip intertrochanteric fracture. PROCEDURE PERFORMED: Intramedullary nailing of left femur. COMPLICATIONS: None. SPECIMEN SENT: None. DRAINS PLACED: None. ANESTHESIA: General endotracheal tube anesthesia with local anesthetic. ESTIMATED BLOOD LOSS: Minimal. HISTORY OF PRESENT ILLNESS: The patient is a very pleasant 83-year-old female who presented to me with ambulatory dysfunction. She was unable to bear weight after a fall at home. X-rays demonstrated displaced intertrochanteric hip fracture. She wished to proceed with operative intervention. She understood the risks and benefits. DESCRIPTION OF PROCEDURE: The patient was identified by name on wrist band in the preoperative holding area. Operative site was signed, consent was signed. SCDs were placed. Antibiotics were started. She was taken to the operating room theater and placed under general endotracheal tube anesthesia and then transferred to the operating room table in the supine position. Her unaffected right lower extremity was abducted and externally rotated so as to be out of the way. The affected left lower extremity was placed under traction and internally rotated. AP and lateral x-ray demonstrated good reduction of the intertrochanteric fracture. At this point, we prepped and draped the patient in the usual sterile fashion. Formal timeout was conducted and then made an incision over the proximal femur and I advanced a guidewire at the piriformis fossa and then through the proximal and then the distal fragment. I used an opening reamer to gain access to the femur. I then passed a ball guide raymond into the femur, took it down to just above the knee and I measured the length of my nail. I then reamed the intramedullary canal. I then passed the nail to the appropriate location. I then attached the aiming arm, made another incision on the lateral and proximal femur and I advanced another guidewire through the femoral neck and into the femoral head into subchondral bone. I measured the length of the helical blade. I then placed the helical blade and then I locked the blade to rotation. I then turned my attention to the distal lock. Using perfect nondalton technique, I drilled and placed a screw through the lateral cortex the nail and then the medial cortex. I took AP and lateral x-ray of both the knee and the hip and the hardware was in good position. I irrigated and closed the wounds in my usual fashion, applied dressings and took her to the PACU where she awoke without incident. She tolerated the procedure well. The plan at this time is to admit the patient for IV antibiotics, IV pain control postoperative monitoring. We will have her out of bed on postoperative day #1. Weightbear as tolerated, which will be on blood thinners for DVT prophylaxis and medicine is consulted for medical management. Job ID: [id number] DocumentID: [id number] Dictated Date: 08/24/2018 18:09:01 Cattle Killer Date: 08/24/2018 22:01:55 Dictated By: DO CONSTANTIN BEAVER
[2018-08-25 01:00] VITALS: BP 119/71
[2018-08-25 04:46] VITALS: BP 148/81
[2018-08-25] MEDS: NS IV 1000 ML 1,000 ML IV SCH ×2 (04:57→20:56)
[2018-08-25] MEDS: CATHETER FLUSH 10 ML SYR IV SCH ×3 (04:57→22:24)
--- NOTE | 2018-08-25 07:25 | Anesthesia-General Post-Op ---
General Patient Condition Mental Status/LOC: Same as Preop Cardiovascular: Satisfactory Nausea/Vomiting: Absent Respiratory: Satisfactory Pain: Controlled Complications: Absent Post Op Complications Complications None Follow Up Care/Instructions Patient Instructions None needed. Anesthesia/Patient Condition Patient Condition Patient is doing well, no complaints, stable vital signs, no apparent adverse anesthesia problems. No complications reported per nursing. D/C home per [facility] Criteria: Yes DULCE THOMSON CRNA Aug 25, 2018 07:25
[2018-08-25 08:00] VITALS: BP 164/74
[2018-08-25] MEDS: ENOXAPARIN 30 MG/0.3 ML (LOVENOX) SYR SC SCH ×2 (08:04→20:56)
[2018-08-25] MEDS: HYDROcodone/APAP 5 MG/325 MG (LORTAB) TAB PO PRN ×2 (08:25→20:57)
--- NOTE | 2018-08-25 08:52 | Progress Note ---
Subjective Date Seen by a Provider: Aug 25, 2018 Time Seen by a Provider: 08:40 Subjective/Events-last exam PT IS SLEEPY - SHE DENIES ANY PAIN - DOES NOT REMEMBER WHAT HAPPENED, COULD NOT TELL ME THAT SHE BROKE HER HIP. SHE DENIES ANY DIZZINESS, HEADACHE, ABDOMINAL PAIN, NAUSEA, GI UPSET Review of Systems General: Fatigue HEENT: No Head Aches Pulmonary: No Dyspnea, No Cough Cardiovascular: No: Chest Pain, Palpitations Gastrointestinal: No: Nausea, Abdominal Pain Musculoskeletal: leg pain (LEFT HIP) Neurological: Weakness, Confusion Objective Exam Last Set of Vital Signs Vital Signs Date Time Temp Pulse Resp B/P (MAP) Pulse Ox O2 Delivery O2 Flow Rate FiO2 08/25/18 08:00 97.9 80 16 164/74 (104) 100 Room Air 08/24/18 19:00 1 Capillary Refill : Less Than 3 SecondsLess Than 3 Seconds I&O Intake and Output 08/24/18 23:59 Intake Total 2340 ml Output Total 1695 ml Balance 645 ml Intake Oral 320 ml IV Total 2020 ml Output Urine Total 1545 ml Estimated Blood Loss 150 ml # Bowel Movements 2 General: Alert, Other (ORIENTED TO PERSON, NOT PLACE OR TIME) HEENT: Atraumatic, PERRLA, Mucous Memb Moist/[place] Neck: Supple Lungs: Clear to Auscultation Heart: Regular Rate Abdomen: Normal Bowel Sounds, Soft Extremities: No Clubbing, No Cyanosis, No Edema Skin: No Rashes Neuro: Normal Speech Psych/Mental Status: Mood NL Results Lab Microbiology 08/23/18 Urine Culture - Final, Complete NO GROWTH Assessment/Plan Assessment/Plan Assess & Plan/Chief Complaint LEFT HIP FRACTURE URINARY TRACT INFECTION - NITRITE POSITIVE HYPERTENSION DEMENTIA DEPRESSION CHRONIC PANCREATITIS GERD LEFT HIP FRACTURE - COMMINUTED INTERTROCHANTERIC FRACTURE OF LEFT HIP. PLANNING ON SURGICAL FIXATION BY ORTHOPEDIC SURGEON - DR. SINGH THIS EVENING AROUND 4PM PER NURSING REPORT. - DEFER TREATMENT/RECOMMENDATION FOR FOLLOW UP TO DR. SINGH. URINARY TRACT INFECTION, NITRITE POSITIVE WITH LEUKOCYTOSIS - IV ANTIBIOTICS - ROCEPHIN - AND MONITOR CULTURE REPORT. HYPERTENSION - VERIFY AND RESTART HOME MEDICATION TOMORROW MORNING. DEMENTIA - HOLD NAMENDA - WITH HER STOMACH ISSUES - THIS MEDICATION MAY BE SOMETHING THAT WE NEED TO LOOK AT STOPPING DUE TO HER CONSTANT GI UPSET - SINCE THE [facility] CAN CAUSE STOMACH UPSET THIS MEDICATION MAY BE CAUSING MORE HARM THAN SHE WILL GET BENEFIT FROM FOR HER DEMENTIA STABILIZATION. DISCUSSED WITH HER SISTER TODAY- WE WILL COMPLETELY STOP THE NAMENDA/ARICEPT COMBO PILL OF NAMZARIC ON DISCHARGE TO SEE IF BEING OFF OF THIS MEDICATION AIDES THE IMPROVEMENT OF HER STOMACH PAIN. DEPRESSION - RESUME HOME MEDICATION CHRONIC PANCREATITIS- RESTART PANCRELIPASE GERD - RESTART PPI PT IS AT HIGH RISK OF FURTHER DECLINE DUE TO HER DEMENTIA AND DEBILITATED STATE. DISCUSSED WITH HER SISTER - SHE WILL BE [facility]ACILITY (SHE CURRENTLY RESIDES IN THE [facility]) - SHE WILL STAY FOR A MINIMUM OF 20 DAYS - AND MAY REQUIRE LONGER STAY DUE TO HER DEMENTIA AND HIP FRACTURE AND HER INABILITY TO REMEMBER WHAT HAPPENED AND SHE WILL NOT BE ABLE TO BE RELIABLY SAFE SHE SHOULD BE WHEN AT THE ASSISTED LIVING SIDE OF THE FACILITY AND MAY TRY TO DO TOO MUCH AND WILL NEED BETTER OVERSIGHT THAN IS AVAILABLE AT THE ASSISTED LIVING FACILITY. Clinical Quality Measures Admission Status Admission Dx LEFT HIP FRACTURE URINARY TRACT INFECTION - NITRITE POSITIVE HYPERTENSION DEMENTIA DEPRESSION CHRONIC PANCREATITIS GERD DVT/VTE Risk/Contraindication: Risk Factor Score Per Nursin RFS Level Per Nursing on Admit: 4+=Very High HANG URRUTIA MD Aug 25, 2018 08:52
--- NOTE | 2018-08-25 09:35 | Physician Query Clarification ---
PQ-Further Specificity Admission/Discharge Admission Date: Aug 23, 2018 at 15:10 Discharge Date: The medical record reflects the following clinical scenario: History/Risk Factors: Left intertrochanteric femur fracture Fall at assisted living facility Osteoporosis Clinical Findings: Documented osteoporosis on pre-Op report diagnoses. Treatment: Intramedullary nailing of the left femur. Question: Can you further specify the type of fracture per the clinical indicators above? Please document below. 1. Pathologic intertrochanteric fracture of left femur due to osteoporosis. 2. Traumatic intertrochanteric fracture of left femur due to fall. 3. Other, with explanation of the clinical findings. 4. Clinically undetermined, no explanation for the clinical findings. PHYSICIAN RESPONSE Can you specify per above: 1 In responding to this query, please exercise your independent professional judgment. The purpose of this communication is to more accurately reflect the complexity of your patients condition. The fact that a question is asked does not imply that any particular answer is desired or expected. Thank you for your timely response to this clarification. Requestors name: Melida Jim [facility] Phone # ext [phone] or [phone] THIS PHYSICIAN QUERY FORM IS A PERMANENT PART OF THE MEDICAL RECORD MELIDA JIM Aug 25, 2018 09:35 EZRA SINGH DO Aug 25, 2018 09:53
--- NOTE | 2018-08-25 09:39 | Physical Therapy Evaluation ---
PT Evaluation-General Medical Diagnosis Admission Date Aug 23, 2018 at 15:10 Medical Diagnosis: left hip fracture Onset Date: Aug 23, 2018 Therapy Diagnosis Therapy Diagnosis: impaired mobility, strength, endurance, balance, ROM Height/Weight Height (Feet): 5 Height (Inches): 5.00 Weight (Pounds): 164 Weight (Ounces): 3.0 Precautions Precautions/Isolations: Fall Prevention Weight Bear Status Left Lower Extremity: Left Weight Bearing/Tolerated Referral Physician: Bernard Self Reason for Referral: Evaluation/Treatment Medical History Pertinent Medical History: Dementia, HTN Additional Medical History diverticulitis, pancreatitis, gall bladder disease, anxiety, surg (multiple fx) Reviewed History: Yes Social History Home: Assisted Living Prior/Core FIM Prior Level of Function Therapy Code Descriptions/Definitions Functional [place] Measure: 0=Not Assessed/NA 4=Minimal Assistance 1=Total Assistance 5=Supervision or Setup 2=Maximal Assistance 6=Modified [place] 3=Moderate Assistance 7=Complete [place] Therapy Quality Codes: 6 Independent with activity with or without an assistive device 5 Patient requires set up or clean up by helper. Patient completes activity by themselves 4 Supervision or touching assist (CGA). [place] provide cues , steadying assist 3 The helper provides less than half the effort to complete the activity 2 The helper provides more than half the effort to complete the activity 1 Dependent. The helper does all the effort to complete an activity 7 Patient refused to complete or attempt activity 9 The patient did not perform the activity before the current illness or injury 88 Not attempted due to Medical conditions or safety concerns Functional Abilities and Goals: Independent: Patient completed the activities by him/herself, with or without an assistive device, with no assistance from a helper. Needed Some Help: Patient needed partial assistance from another person to complete activities. Dependent: A helper completed the activities for the patient. Unknown: Not Applicable: unknown PT Evaluation-Current Subjective Patient in bed pre tx, agrees to PT, patient states she has pain in left hip but is unable to give a rating. Pt/Family Goals none stated Objective Patient Orientation: Person, Confused Attachments: Langley Catheter, IV ROM/Strength ROM Lower Extremities NT in LLE, RLE WNL Strength Lower Extremities NT Integumentary/Posture Bladder Incontinence: Langley Cath Neuromuscular (Tone, Coordination, Reflexes) NT Sensory Hearing: Functional Sensation Right Lower Extremit: Intact Sensation Left Lower Extremity: Intact Transfers Therapy Code Descriptions/Definitions Functional [place] Measure: 0=Not Assessed/NA 4=Minimal Assistance 1=Total Assistance 5=Supervision or Setup 2=Maximal Assistance 6=Modified [place] 3=Moderate Assistance 7=Complete [place] Transfers (B, C, W/C) (FIM): 1 Scootin Rollin Supine to/from Sit: 1 Sit to/from Stand: 1 Patient is dependent assist of 2 to sit in bed and transfer to recliner. Gait Comments/Gait Description Attempted to stand at the edge of the bed but she could not proceed further than trying to barely put weight through her left leg. Balance Sitting Static: Good Sitting Dynamic: Good Standing Static: Poor Standing Dynamic: Poor Treatment seated LLE exercise x15 (LAQ, AP) Assessment/Needs Patient has impaired mobility, strength, endurance, balance, ROM post left hip fracture. Patient in recliner post tx with nurse call, phone, tray, all needs met. Nurse notified patient is in chair. Legs elevated. Rehab Potential: Guarded PT Short Term Goals Short Term Goals Time Frame: September 01, 2018 Transfers (B,C,W/C) (FIM): 3 Gait (FIM): 1 Gait Distance Comment: 5' Gait Level of Assist: 3 Gait Assistive Device: FWW PT Plan Problem List Problem List: Activity Tolerance, Functional Strength, Safety, Balance, Gait, Transfer, Bed Mobility, ROM Treatment/Plan Treatment Plan: Continue Plan of Care Treatment Plan: Bed Mobility, Concurrent Therapy, Education, Functional Activity James, Functional Strength, Gait, Safety, Therapeutic Exercise, Transfers Treatment Duration: September 01, 2018 Frequency: 11 times per week Estimated Hrs Per Day: .25 hour per day (15-30') Patient and/or Family Agrees t: Yes Safety Risks/Education Patient Education: Transfer Techniques, Correct Positioning, Safety Issues Teaching Recipient: Patient Teaching Methods: Demonstration, Discussion Response to Teaching: Reinforcement Needed Discharge Recommendations Plan Patient will perform bed mobility and transfer training, balance and endurance training, functional strengthening, gait training, and education, to improve functional mobility and independence at home. Therapy D/C Recommendations: Home w/ Family Support, [facility] ([facility]) Time/GCodes Time In: 910 Time Out: 926 Total Billed Treatment Time: 16 Total Billed Treatment 1 visit EVLo 16' BHAVIK MAYFIELD PT Aug 25, 2018 09:39
--- NOTE | 2018-08-25 09:46 | Progress Note-Standard ---
Standard Progress Note Progress Notes/Assess & Plan Date Seen by a Provider: Aug 25, 2018 Time Seen by a Provider: 07:50 Progress/Assessment & Plan Pt JAYSON, pain controlled, no cp/sob, no n/v, no overnight issues to report, no complaints. VSSAF LLE: dressings c/d/i, thigh compartments soft/NT, motor/sensation grossly intact , foot well perfused. S/P IMN Left femur for intertrochanteric fracture, POD #1 Orthopedically stable Mobilize OOB with PT/OT, WBAT LLE VTE prophylaxis Current pain control regimen Bowel regimen D/C planning: OK to d/c to SNF/rehab from ortho standpoint when cleared by medicine AKANKSHA NAYLOR DO Aug 25, 2018 09:46
[2018-08-25] MEDS ORDERED: ACETAMINOPHEN 500 MG TAB (TYLENOL) PO PRN (10:45)
[2018-08-25] MEDS ORDERED: LIPASE/AMYLASE/PROTEASE (PANCRELIPASE) 5,000 UNITS CAP PO PRN (10:45)
[2018-08-25] MEDS: SERTRALINE 100 MG (ZOLOFT) TAB PO SCH (11:31)
[2018-08-25] MEDS: LIPASE/AMYLASE/PROTEASE (PANCRELIPASE) 5,000 UNITS CAP PO SCH ×2 (11:31→17:39)
--- NOTE | 2018-08-25 11:52 | Physical Therapy Daily Note ---
PT Daily Note-Current Subjective Patient in recliner pre tx, agrees to PT, has 3/10 pain in left hip. She would like to get back to the bed. Appearance Patient in bed post tx with nurse call, phone, tray, all needs met, bed alarm on , SCD's on. Mental Status Patient Orientation: Person, Confused Attachments: Langley Catheter, IV Transfers Therapy Code Descriptions/Definitions Functional [place] Measure: 0=Not Assessed/NA 4=Minimal Assistance 1=Total Assistance 5=Supervision or Setup 2=Maximal Assistance 6=Modified [place] 3=Moderate Assistance 7=Complete [place] Therapy Quality Codes: 6 Independent with activity with or without an assistive device 5 Patient requires set up or clean up by helper. Patient completes activity by themselves 4 Supervision or touching assist (CGA). [place] provide cues , steadying assist 3 The helper provides less than half the effort to complete the activity 2 The helper provides more than half the effort to complete the activity 1 Dependent. The helper does all the effort to complete an activity 7 Patient refused to complete or attempt activity 9 The patient did not perform the activity before the current illness or injury 88 Not attempted due to Medical conditions or safety concerns Transfers (B, C, W/C) (FIM): 1 Scootin Rollin Supine to/from Sit: 1 Sit to/from Stand: 1 Bed to/from Chair: 1 Patient performs stand pivot transfer with dependence. She does help a little with standing using her arms but did not seem to be able to bearing any weight on either leg even with cues. She needs assist of 2 to go from sit to supine. Weight Bearing Left Lower Extremity: Left Weight Bearing/Tolerated Treatments bed mobility and transfers Assessment Current Status: Poor Progress dependent for mobility PT Short Term Goals Short Term Goals Time Frame: September 01, 2018 Transfers (B,C,W/C) (FIM): 3 Gait (FIM): 1 Gait Distance Comment: 5' Gait Level of Assist: 3 Gait Assistive Device: FWW PT Plan Problem List Problem List: Activity Tolerance, Functional Strength, Safety, Balance, Gait, Transfer, Bed Mobility, ROM Treatment/Plan Treatment Plan: Continue Plan of Care Treatment Plan: Bed Mobility, Concurrent Therapy, Education, Functional Activity James, Functional Strength, Gait, Safety, Therapeutic Exercise, Transfers Treatment Duration: September 01, 2018 Frequency: 11 times per week Estimated Hrs Per Day: .25 hour per day (15-30') Patient and/or Family Agrees t: Yes Safety Risks/Education Patient Education: Transfer Techniques, Correct Positioning, Safety Issues Teaching Recipient: Patient Teaching Methods: Demonstration, Discussion Response to Teaching: Reinforcement Needed Time/GCodes Time In: 1135 Time Out: 1145 Total Billed Treatment Time: 10 Total Billed Treatment 1 visit FA 10' BHAVIK MAYFIELD PT Aug 25, 2018 11:52
--- NOTE | 2018-08-25 13:19 | NUR ---
IRF Evaluation: Order received to evaluate patient for the ARU; however, this worker notified the plan is for patient to dismiss to SNF, Tuesday. Thank you for this referral.
[2018-08-25 15:40] VITALS: BP 145/66
--- NOTE | 2018-08-25 16:00 | NUR ---
CARE TRANSFERRED TO THIS JUNIOR QA ANALYST. REPORT RECEIVED FROM BAM MACIAS.
--- NOTE | 2018-08-25 16:27 | Diagnostic Imaging Report ---
INDICATION: Left hip fracture follow-up. FINDINGS: AP and lateral views of the left femur show postop changes from internal fixation of left hip with a dynamic compression device. Bones appear to be transfixed in good alignment. There is slight foreshortening of the femur by about 1 cm. IMPRESSION: Postop changes from internal fixation of an intertrochanteric fracture of the left hip. There is slight foreshortening of the femur. Dictated by: Dictated on workstation # [id number]
[2018-08-25 19:49] VITALS: BP 114/62
[2018-08-25] MEDS: cefTRIAXone FOR IV USE 1,000 MG in WATER (STERILE) FOR INJECTION 10 ML IV SCH (20:56)
[2018-08-25] MEDS: COLESTIPOL 1 GM (COLESTID) TAB PO SCH (20:57)
[2018-08-25] MEDS: NIFEdipine ER 60 MG (PROCARDIA XL) TAB PO SCH (21:50)
[2018-08-25] MEDS: NIFEdipine ER 30 MG (PROCARDIA XL) TAB PO SCH (21:50)
[2018-08-26] VITALS: BP 110/56
[2018-08-26] MEDS: HYDROcodone/APAP 5 MG/325 MG (LORTAB) TAB PO PRN ×4 (03:05→21:39)
[2018-08-26] MEDS: fentaNYL INJECTION 100 MCG/2 ML AMP IV PRN (03:05)
[2018-08-26 03:59] VITALS: BP 118/58
[2018-08-26] MEDS: CATHETER FLUSH 10 ML SYR IV SCH ×3 (05:33→22:40)
[2018-08-26] MEDS: VITAMIN D3 5,000 UNITS (CHOLECALCIFEROL ) CAPSULE PO SCH (06:50)
[2018-08-26] MEDS: LIPASE/AMYLASE/PROTEASE (PANCRELIPASE) 5,000 UNITS CAP PO SCH ×3 (06:51→16:47)
[2018-08-26 08:00] VITALS: BP 125/65
--- NOTE | 2018-08-26 08:29 | Progress Note-Hospitalist ---
Subjective HPI/CC On Admission Date Seen by Provider: Aug 26, 2018 Time Seen by Provider: 08:00 Subjective/Events-last exam Having bowel movements Eating and drinking well She did not appear to remember who her primary care provider was of Dr. Michelle so I am assuming there is dementia underlying Reports hip pain is an issue but controlled now Check meds and labs intermediate placement on Tuesday Review of Systems Musculoskeletal: leg pain Objective Exam Vital Signs Vital Signs Date Time Temp Pulse Resp B/P (MAP) Pulse Ox O2 Delivery O2 Flow Rate FiO2 08/26/18 14:50 97.8 08/26/18 12:00 102 22 123/62 (82) 93 Room Air 08/24/18 19:00 1 Capillary Refill : Less Than 3 SecondsLess Than 3 Seconds General Appearance: No Apparent Distress, WD/WN, Chronically ill, Mild Distress (DUE TO PAIN) HEENT: PERRL/EOMI, Pharynx Normal Neck: Full Range of Motion, Non Tender, Supple Respiratory: Chest Non Tender, Lungs Clear, Normal Breath Sounds, No Accessory Muscle Use Cardiovascular: Regular Rate, Rhythm, No Edema Gastrointestinal: Normal Bowel Sounds, Soft, Other (VERY MILDY TTP OVER EPIGASTRIUM) Rectal: Deferred Extremity: Normal Capillary Refill, No Pedal Edema, Other (TTP LATERAL LEFT HIP WITH SOME SWELLING LATERAL LEFT HIP- NO BRUISING NOTED) Neurologic/Psychiatric: Alert, No Motor/Sensory Deficits, Normal Mood/Affect, hand brush filler II-XII Norm as Tested, Disoriented, Other (ORIENTED TO PERSON, NOT PLACE OR TIME, FLAT AFFECT) Skin: Normal Color, Warm/Dry Lymphatic: No Adenopathy Results/Procedures Lab Patient resulted labs reviewed. Assessment/Plan Assessment and Plan Assess & Plan/Chief Complaint Assessment: Left femur fracture status post uncomplicated repair by Dr. Pitts Cognitive deficit? Hypokalemia Postop anemia UTI acute but UCx NGTD so will DC Rocephin Plan: intermediate placement on Tuesday Pain control Bowel regimen DVT prophylaxis Physical therapy Diagnosis/Problems Diagnosis/Problems (1) Intertrochanteric fracture of left femur Status: Acute Qualifiers: Encounter type: initial encounter Fracture type: closed Fracture alignment: displaced Qualified Codes: S72.142A - Displaced intertrochanteric fracture of left femur, initial encounter for closed fracture (2) Dementia Status: Chronic Qualifiers: Dementia type: Alzheimer's disease Alzheimer's disease onset: unspecified onset Dementia behavioral disturbance: without behavioral disturbance Qualified Codes: G30.9 - Alzheimer's disease, unspecified; F02.80 - Dementia in other diseases classified elsewhere without behavioral disturbance (3) Hypertension Qualifiers: Hypertension type: essential hypertension Qualified Codes: I10 - Essential (primary) hypertension (4) Hypokalemia Status: Acute (5) Falls Status: Chronic Qualifiers: Encounter type: sequela Qualified Codes: W19.XXXS - Unspecified fall, sequela Clinical Quality Measures DVT/VTE Risk/Contraindication: Risk Factor Score Per Nursin RFS Level Per Nursing on Admit: 4+=Very High RG ALLAN DO Aug 26, 2018 08:29
[2018-08-26] MEDS: ENOXAPARIN 30 MG/0.3 ML (LOVENOX) SYR SC SCH ×2 (08:48→20:09)
[2018-08-26] MEDS: SPIRONOLACTONE 25 MG (ALDACTONE) TAB PO SCH (08:48)
[2018-08-26] MEDS: COLESTIPOL 1 GM (COLESTID) TAB PO SCH ×2 (08:48→20:09)
[2018-08-26] MEDS: SERTRALINE 100 MG (ZOLOFT) TAB PO SCH (08:51)
[2018-08-26] MEDS: ASPIRIN E.C. 81 MG (ECOTRIN) TAB PO SCH (08:52)
[2018-08-26] MEDS: NEBIVOLOL 5 MG TAB (BYSTOLIC) PO SCH (08:52)
[2018-08-26] MEDS: PANTOPRAZOLE 40 MG (PROTONIX) TAB PO SCH (08:55)
[2018-08-26] MEDS: NS IV 1000 ML 1,000 ML IV SCH (10:26)
[2018-08-26 12:00] VITALS: BP 123/62
--- NOTE | 2018-08-26 13:02 | Physical Therapy Daily Note ---
PT Daily Note-Current Subjective Pt agreeable. When asked to rate her pain pt said "It is about 25%." When asked to denote number on scale 0-10, pt rated pain 2/10. Pt states several times "Oh this is better. I am better." Mental Status Patient Orientation: Person, Confused Pt somewhat confused but seemed clear about her pain and ability to stand and move to chair. Pt did follow all commands appropriately. Pt did not yell out in pain at all like she had previously. Nurse reports she had pain med just prior to my arrival. Transfers Therapy Code Descriptions/Definitions Functional [place] Measure: 0=Not Assessed/NA 4=Minimal Assistance 1=Total Assistance 5=Supervision or Setup 2=Maximal Assistance 6=Modified [place] 3=Moderate Assistance 7=Complete [place] Therapy Quality Codes: 6 Independent with activity with or without an assistive device 5 Patient requires set up or clean up by helper. Patient completes activity by themselves 4 Supervision or touching assist (CGA). [place] provide cues , steadying assist 3 The helper provides less than half the effort to complete the activity 2 The helper provides more than half the effort to complete the activity 1 Dependent. The helper does all the effort to complete an activity 7 Patient refused to complete or attempt activity 9 The patient did not perform the activity before the current illness or injury 88 Not attempted due to Medical conditions or safety concerns Weight Bearing Left Lower Extremity: Left Weight Bearing/Tolerated Treatments Pt required AAROM all ther ex in bed per protocol x 20 each. Pt able to perform SAQ x 10-20 (I). Pt required max A of 2 people for transfer to EOB. Pt transfered bed to chair with max A of 2 people SPT. Pt seated comfortably in chair with legs elevated and call light in hand. Nurse notified pt in chair. Assessment Current Status: Fair Progress Better tolerance to activity and transfers today. Pt tolerated well, continues to be dependent for all mobility. Pt seated in chair with call light and nurse notified aware pt in chair. PT Short Term Goals Short Term Goals Time Frame: September 01, 2018 Transfers (B,C,W/C) (FIM): 3 Gait (FIM): 1 Gait Distance Comment: 5' Gait Level of Assist: 3 Gait Assistive Device: FWW PT Plan Treatment/Plan Treatment Plan: Continue Plan of Care Treatment Plan: Bed Mobility, Concurrent Therapy, Education, Functional Activity James, Functional Strength, Gait, Safety, Therapeutic Exercise, Transfers Treatment Duration: September 01, 2018 Frequency: 11 times per week Estimated Hrs Per Day: .25 hour per day (15-30') Patient and/or Family Agrees t: Yes Time/GCodes Time In: 1025 Time Out: 1050 Total Billed Treatment Time: 25 Total Billed Treatment 1, ther ex 15min, gait 10min JUAN J CABALLERO CPTA Aug 26, 2018 13:02
--- NOTE | 2018-08-26 15:21 | NUR ---
PT HAS CONTINUALLY VOICE NEED FOR BM -- PT HAS 2 LARGE BM IM AM -- SHE REFUSED TO GET TO CHAIR -- VOICED IT HURT TOO MUCH -- AND AFTER PT GOT HER TO CHAIR IT TOOK 3 STAFF MEMBERS WITH GAIT BELT AND WALKER TO GET HER BACK TO BED -- SHE JUST GOES [place] AND REFUSES TO HELP -- STAFF ARE ASSESSING HER AND SHE IS VERY FORGETFUL DUE TO THE DEMENTIA --STAFF CONTINUES TO REORIENT HER -- BUT THIS RN HAS FOUND THAT HER FAMLY IS FORGETFUL TOO -- ASKING QUESTION AND GETTING ANSWERS AND VERBALIZING THEY UNDERSTAND AND THEN RE ASKING THE SAME QUESTIONS --
[2018-08-26 15:35] VITALS: BP 141/67
[2018-08-26] MEDS: NIFEdipine ER 30 MG (PROCARDIA XL) TAB PO SCH (20:09)
[2018-08-26] MEDS: NIFEdipine ER 60 MG (PROCARDIA XL) TAB PO SCH (20:09)
[2018-08-26 20:15] VITALS: BP 142/92
[2018-08-27] VITALS (7 sets, daily range): BP systolic 122–178; BP diastolic 59–84
[2018-08-27] MEDS: NS IV 1000 ML 1,000 ML IV SCH ×2 (00:42→13:48)
[2018-08-27 05:52] LABS: BASOPHILS % (AUTO) 0 % (0-10); EOSINOPHILS # (AUTO) 0.1 10^3/uL (0.0-0.3); EOSINOPHILS % (AUTO) 0 % (0-10); HEMATOCRIT 26 % (35-52); HEMOGLOBIN 8.4 G/DL (11.5-16.0); LYMPHOCYTES # (AUTO) 1.9 X 10^3 (1.0-4.0); LYMPHOCYTES % (AUTO) 12 % (12-44); MEAN CORPUSCULAR HEMOGLOBIN 31 PG (25-34); MEAN CORPUSCULAR HGB CONC 32 G/DL (32-36); MEAN CORPUSCULAR VOLUME 96 FL (80-99); MEAN PLATELET VOLUME 10.2 FL (7.4-10.4); MONOCYTES # (AUTO) 1.5 X 10^3 (0.0-1.0); MONOCYTES % (AUTO) 9 % (0-12); NEUTROPHILS # (AUTO) 12.8 X 10^3 (1.8-7.8); NEUTROPHILS % (AUTO) 79 % (42-75); PLATELET COUNT 380 10^3/uL (130-400); RED CELL DISTRIBUTION WIDTH 14.2 % (10.0-14.5); WHITE BLOOD COUNT 16.3 10^3/uL (4.3-11.0)
[2018-08-27] MEDS: VITAMIN D3 5,000 UNITS (CHOLECALCIFEROL ) CAPSULE PO SCH (06:08)
[2018-08-27] MEDS: LIPASE/AMYLASE/PROTEASE (PANCRELIPASE) 5,000 UNITS CAP PO SCH ×3 (06:09→16:15)
[2018-08-27] MEDS: CATHETER FLUSH 10 ML SYR IV SCH ×3 (06:12→20:41)
[2018-08-27 06:13] LABS: ALANINE AMINOTRANSFERASE 8 U/L (0-55); ALBUMIN 2.7 GM/DL (3.2-4.5); ALKALINE PHOSPHATASE 36 U/L (40-136); BILIRUBIN,TOTAL 0.4 MG/DL (0.1-1.0); BUN/CREATININE RATIO 18; CALCIUM 8.5 MG/DL (8.5-10.1); CARBON DIOXIDE 21 MMOL/L (21-32); CHLORIDE 106 MMOL/L (98-107); CREATININE SERUM 0.61 MG/DL (0.60-1.30); GFR ESTIMATED > 60; GLUCOSE 94 MG/DL (70-105); SODIUM 140 MMOL/L (135-145); TOTAL PROTEIN 4.9 GM/DL (6.4-8.2)
--- NOTE | 2018-08-27 07:20 | Progress Note-Hospitalist ---
Subjective HPI/CC On Admission Date Seen by Provider: Aug 27, 2018 Time Seen by Provider: 06:30 Subjective/Events-last exam Patient sleeping Denies any pain Bowels are moving RN has no concerns USP placement due to dementia and recent hip fracture Review of Systems General: Fatigue Objective Exam Vital Signs Vital Signs Date Time Temp Pulse Resp B/P (MAP) Pulse Ox O2 Delivery O2 Flow Rate FiO2 08/27/18 12:00 98.3 75 18 174/84 (114) 95 Room Air 08/27/18 00:21 Capillary Refill : Less Than 3 SecondsLess Than 3 Seconds General Appearance: No Apparent Distress, WD/WN, Chronically ill, Mild Distress (DUE TO PAIN) HEENT: PERRL/EOMI, Pharynx Normal Neck: Full Range of Motion, Non Tender, Supple Respiratory: Chest Non Tender, Lungs Clear, Normal Breath Sounds, No Accessory Muscle Use Cardiovascular: Regular Rate, Rhythm, No Edema Gastrointestinal: Normal Bowel Sounds, Soft, Other (VERY MILDY TTP OVER EPIGASTRIUM) Rectal: Deferred Extremity: Normal Capillary Refill, No Pedal Edema, Other (TTP LATERAL LEFT HIP WITH SOME SWELLING LATERAL LEFT HIP- NO BRUISING NOTED) Neurologic/Psychiatric: Alert, No Motor/Sensory Deficits, Normal Mood/Affect, front desk officer II-XII Norm as Tested, Disoriented, Other (ORIENTED TO PERSON, NOT PLACE OR TIME, FLAT AFFECT) Skin: Normal Color, Warm/Dry Lymphatic: No Adenopathy Results/Procedures Lab Laboratory Tests 08/27/18 05:23 Patient resulted labs reviewed. Assessment/Plan Assessment and Plan Assess & Plan/Chief Complaint Assessment: Left femur fracture status post uncomplicated repair by Dr. Pitts Cognitive deficit? Hypokalemia Postop anemia UTI acute but UCx NGTD so will DC Rocephin Plan: USP placement on Tuesday Pain control Bowel regimen DVT prophylaxis Physical therapy Diagnosis/Problems Diagnosis/Problems (1) Intertrochanteric fracture of left femur Status: Acute Qualifiers: Encounter type: initial encounter Fracture type: closed Fracture alignment: displaced Qualified Codes: S72.142A - Displaced intertrochanteric fracture of left femur, initial encounter for closed fracture (2) Dementia Status: Chronic Qualifiers: Dementia type: Alzheimer's disease Alzheimer's disease onset: unspecified onset Dementia behavioral disturbance: without behavioral disturbance Qualified Codes: G30.9 - Alzheimer's disease, unspecified; F02.80 - Dementia in other diseases classified elsewhere without behavioral disturbance (3) Hypertension Qualifiers: Hypertension type: essential hypertension Qualified Codes: I10 - Essential (primary) hypertension (4) Hypokalemia Status: Acute (5) Falls Status: Chronic Qualifiers: Encounter type: sequela Qualified Codes: W19.XXXS - Unspecified fall, sequela Clinical Quality Measures DVT/VTE Risk/Contraindication: Risk Factor Score Per Nursin RFS Level Per Nursing on Admit: 4+=Very High RG ALLAN DO Aug 27, 2018 07:20
[2018-08-27] MEDS: PANTOPRAZOLE 40 MG (PROTONIX) TAB PO SCH (08:12)
[2018-08-27] MEDS: ENOXAPARIN 30 MG/0.3 ML (LOVENOX) SYR SC SCH ×2 (08:12→20:38)
[2018-08-27] MEDS: SPIRONOLACTONE 25 MG (ALDACTONE) TAB PO SCH (08:12)
[2018-08-27] MEDS: COLESTIPOL 1 GM (COLESTID) TAB PO SCH ×2 (08:12→20:39)
[2018-08-27] MEDS: ASPIRIN E.C. 81 MG (ECOTRIN) TAB PO SCH (08:13)
[2018-08-27] MEDS: SERTRALINE 100 MG (ZOLOFT) TAB PO SCH (08:13)
[2018-08-27] MEDS: NEBIVOLOL 5 MG TAB (BYSTOLIC) PO SCH (08:14)
[2018-08-27] MEDS: NIFEdipine ER 60 MG (PROCARDIA XL) TAB PO SCH (20:39)
[2018-08-27] MEDS: NIFEdipine ER 30 MG (PROCARDIA XL) TAB PO SCH (20:39)
[2018-08-28 04:31] VITALS: BP 163/76
[2018-08-28] MEDS: CATHETER FLUSH 10 ML SYR IV SCH (05:57)
[2018-08-28] MEDS: VITAMIN D3 5,000 UNITS (CHOLECALCIFEROL ) CAPSULE PO SCH (05:58)
[2018-08-28] MEDS: LIPASE/AMYLASE/PROTEASE (PANCRELIPASE) 5,000 UNITS CAP PO SCH (05:58)
[2018-08-28 08:00] VITALS: BP 148/62
[2018-08-28] MEDS: NEBIVOLOL 5 MG TAB (BYSTOLIC) PO SCH (08:41)
[2018-08-28] MEDS: ENOXAPARIN 30 MG/0.3 ML (LOVENOX) SYR SC SCH (08:41)
[2018-08-28] MEDS: PANTOPRAZOLE 40 MG (PROTONIX) TAB PO SCH (08:42)
[2018-08-28] MEDS: SPIRONOLACTONE 25 MG (ALDACTONE) TAB PO SCH (08:42)
[2018-08-28] MEDS: SERTRALINE 100 MG (ZOLOFT) TAB PO SCH (08:42)
[2018-08-28] MEDS: ASPIRIN E.C. 81 MG (ECOTRIN) TAB PO SCH (08:42)
[2018-08-28] MEDS: HYDROcodone/APAP 5 MG/325 MG (LORTAB) TAB PO PRN (08:42)
[2018-08-28] MEDS: NS IV 1000 ML 1,000 ML IV SCH (08:42)
[2018-08-28] MEDS: COLESTIPOL 1 GM (COLESTID) TAB PO SCH (08:48)
--- NOTE | 2018-08-28 08:58 | Physical Therapy Daily Note ---
PT Daily Note-Current Subjective Patient in bed pre tx, agrees to PT, states she has quite a bit of pain but does not rate it. Nurse in room and assists with transfer. Appearance Patient in recliner post tx with nurse call, phone, tray, chair alarm on. Mental Status Patient Orientation: Person, Confused Transfers Therapy Code Descriptions/Definitions Functional [place] Measure: 0=Not Assessed/NA 4=Minimal Assistance 1=Total Assistance 5=Supervision or Setup 2=Maximal Assistance 6=Modified [place] 3=Moderate Assistance 7=Complete [place] Therapy Quality Codes: 6 Independent with activity with or without an assistive device 5 Patient requires set up or clean up by helper. Patient completes activity by themselves 4 Supervision or touching assist (CGA). [place] provide cues , steadying assist 3 The helper provides less than half the effort to complete the activity 2 The helper provides more than half the effort to complete the activity 1 Dependent. The helper does all the effort to complete an activity 7 Patient refused to complete or attempt activity 9 The patient did not perform the activity before the current illness or injury 88 Not attempted due to Medical conditions or safety concerns Transfers (B, C, W/C) (FIM): 2 Scootin Rollin Supine to/from Sit: 2 Sit to/from Stand: 2 Bed to/from Chair: 2 Patient is able to assist with supine to sit and try to abduct her left leg to the edge of the bed. Cues for positioning and safety. Weight Bearing Left Lower Extremity: Left Weight Bearing/Tolerated Gait Training Gait (FIM): 1 Distance: 3' Gait Level of Assist: 2 Gait Persons Needed: 1 Gait Assistive Device: FWW Patient is able to attempt to take a few steps with max assist however, she doesn't quite get to the chair before needing max assist from therapist to get her the last foot to the recliner. She was able to bear some weight through her left leg. Exercises Seated Therapy Exercises: Ankle pumps, Long arc quads Seated Reps: 15 Treatments bed mobility and transfers, ambulation, LE exercises Assessment Current Status: Fair Progress improved transfers and ambulation PT Short Term Goals Short Term Goals Time Frame: September 01, 2018 Transfers (B,C,W/C) (FIM): 3 Gait (FIM): 1 Gait Distance Comment: 5' Gait Level of Assist: 3 Gait Assistive Device: FWW PT Plan Problem List Problem List: Activity Tolerance, Functional Strength, Safety, Balance, Gait, Transfer, Bed Mobility, ROM Treatment/Plan Treatment Plan: Continue Plan of Care Treatment Plan: Bed Mobility, Concurrent Therapy, Education, Functional Activity James, Functional Strength, Gait, Safety, Therapeutic Exercise, Transfers Treatment Duration: September 01, 2018 Frequency: 11 times per week Estimated Hrs Per Day: .25 hour per day (15-30') Patient and/or Family Agrees t: Yes Safety Risks/Education Patient Education: Gait Training, Transfer Techniques, Reviewed Precautions, Correct Positioning, Safety Issues Teaching Recipient: Patient Teaching Methods: Demonstration, Discussion Response to Teaching: Reinforcement Needed Time/GCodes Time In: 0840 Time Out: 0850 Total Billed Treatment Time: 10 Total Billed Treatment 1 visit FA 10' BHAVIK MAYFIELD PT Aug 28, 2018 08:58
[2018-08-28] MEDS ORDERED: ACHD5005 PO (09:14)
[2018-08-28] MEDS ORDERED: METR500T PO (09:14)
[2018-08-28] MEDS ORDERED: TRAM50TA2 PO (09:14)
[2018-08-28] MEDS ORDERED: KCL 20 MEQ TAB (K-DUR) PO NR (09:15)
[2018-08-28] MEDS ORDERED: ENOX30DI4 SC (09:20)
--- NOTE | 2018-08-28 09:21 | Discharge Inst-Skilled Nursing ---
Discharge Inst-Skilled NF Patient Instructions Patient Problems: LEFT HIP FRACTURE URINARY TRACT INFECTION - NITRITE POSITIVE HYPERTENSION DEMENTIA DEPRESSION CHRONIC PANCREATITIS GERD Consult/Follow Up/Orders Follow Up Appt.: [facility], 10 DAYS ORTHOPEDIC SURGEON - DR. SINGH Skilled NF Admit to: [facility] Certification ([facility]) I certify that SNF services are required to be given on an inpatient basis because of the above named patient's need for [facility] care on a continuing basis for the conditions(s) for which he/she was receiving inpatient hospital services prior to his/her transfer to the [facility]. Intermediate Facility Order: Nursing Services, Sustainability Consultant-Evaluate & Treat, Physical Therapy-Evaluate & Treat, Speech Language-Evaluate & Treat Oxygen Delivery Method: Room Air Discharge Diet: No Restrictions Daily Activity as Tolerated: Yes New & Resume Previous Orders New & Resume Previous Orders WEIGHT BEARING TOLERATED, USE OF WALKER, LOVENOX X 6 MORE DAYS CHECK CBC, CMP IN 4 DAYS Hang Michelle Aug 28, 2018 09:16 HANG MICHELLE MD Aug 28, 2018 09:21
--- NOTE | 2018-08-28 09:23 | Discharge Summary ---
Diagnosis/Chief Complaint Date of Admission Aug 23, 2018 at 15:10 Date of Discharge Discharge Date: Aug 28, 2018 Discharge Time: 1100 Admission Diagnosis Admission Diagnosis LEFT HIP FRACTURE URINARY TRACT INFECTION - NITRITE POSITIVE HYPERTENSION DEMENTIA DEPRESSION CHRONIC PANCREATITIS GERD Discharge Diagnosis LEFT HIP FRACTURE URINARY TRACT INFECTION - NITRITE POSITIVE HYPERTENSION DEMENTIA DEPRESSION CHRONIC PANCREATITIS GERD Reason Hospital Visit PT IS AN 83 Y/O FEMALE WHO IS A NEW PATIENT - OF 1 WEEK IN MY CLINIC. SHE RESIDES AT AN ASSISTED LIVING FACILITY AND WAS APPARENTLY HAVING LUNCH AND FEELING IN HER USUAL STATE OF HEALTH. SHE FELL AFTER STANDING FROM THE LUNCH TABLE AND FELL TO THE GROUND, HITTING HER LEFT HIP. SHE WAS BROUGHT TO THE EMERGENCY DEPARTMENT FOR EVALUATION OF THE LEFT HIP DUE TO PAIN AND WAS FOUND TO HAVE A LEFT SIDED HIP FRACTURE. Discharge Summary Discharge Physical Examination Allergies: Coded Allergies: Sulfa (Sulfonamide Antibiotics) (Unverified Allergy, Unknown, 08/23/18) codeine (Verified Adverse Reaction, Mild, confusion, 08/23/18) okay with dr. louis for hydrocodone Vitals & I&Os Vital Signs Date Time Temp Pulse Resp B/P (MAP) Pulse Ox O2 Delivery O2 Flow Rate FiO2 08/28/18 09:21 Room Air 08/28/18 08:00 98.8 78 20 148/62 (90) 92 08/27/18 00:21 General Appearance: Alert, Other (ORIENTED TO PERSON, NOT PLACE OR TIME) HEENT: Atraumatic, PERRLA, Mucous Memb Moist/[place] Respiratory: Clear to Auscultation Cardiovascular: Regular Rate Abdominal: Normal Bowel Sounds, Soft Extremities: No Clubbing, No Cyanosis, No Edema Skin: No Rashes Neuro: Normal Speech Psych/Mental Status: Mood NL Hospital Course LEFT HIP FRACTURE URINARY TRACT INFECTION - NITRITE POSITIVE HYPERTENSION DEMENTIA DEPRESSION CHRONIC PANCREATITIS GERD LEFT HIP FRACTURE - COMMINUTED INTERTROCHANTERIC FRACTURE OF LEFT HIP. PLANNING ON SURGICAL FIXATION BY ORTHOPEDIC SURGEON - DR. SINGH THIS EVENING AROUND 4PM PER NURSING REPORT. - DEFER TREATMENT/RECOMMENDATION FOR FOLLOW UP TO DR. SINGH. URINARY TRACT INFECTION, NITRITE POSITIVE WITH LEUKOCYTOSIS - IV ANTIBIOTICS - ROCEPHIN - AND MONITOR CULTURE REPORT. HYPERTENSION - VERIFY AND RESTART HOME MEDICATION TOMORROW MORNING. DEMENTIA - HOLD NAMENDA - WITH HER STOMACH ISSUES - THIS MEDICATION MAY BE SOMETHING THAT WE NEED TO LOOK AT STOPPING DUE TO HER CONSTANT GI UPSET - SINCE THE [facility] CAN CAUSE STOMACH UPSET THIS MEDICATION MAY BE CAUSING MORE HARM THAN SHE WILL GET BENEFIT FROM FOR HER DEMENTIA STABILIZATION. DISCUSSED WITH HER SISTER TODAY- WE WILL COMPLETELY STOP THE NAMENDA/ARICEPT COMBO PILL OF NAMZARIC ON DISCHARGE TO SEE IF BEING OFF OF THIS MEDICATION AIDES THE IMPROVEMENT OF HER STOMACH PAIN. DEPRESSION - RESUME HOME MEDICATION CHRONIC PANCREATITIS- RESTART PANCRELIPASE GERD - RESTART PPI PT IS AT HIGH RISK OF FURTHER DECLINE DUE TO HER DEMENTIA AND DEBILITATED STATE. DISCUSSED WITH HER SISTER - SHE WILL BE GOING TO [facility] THE FACILITY (SHE CURRENTLY RESIDES IN THE [facility] S[facility]) - SHE WILL STAY FOR A MINIMUM OF 20 DAYS - AND MAY REQUIRE LONGER STAY DUE TO HER DEMENTIA AND HIP FRACTURE AND HER INABILITY TO REMEMBER WHAT HAPPENED AND SHE WILL NOT BE ABLE TO BE RELIABLY SAFE SHE SHOULD BE WHEN AT THE ASSISTED LIVING SIDE OF THE FACILITY AND MAY TRY TO DO TOO MUCH AND WILL NEED BETTER OVERSIGHT THAN IS AVAILABLE AT THE ASSISTED LIVING FACILITY. Discharge Instructions to patient/family Please see electronic discharge instructions given to patient. Discharge Medications Reviewed and agree with Discharge Medication list on patient's Discharge Instruction sheet Clinical Quality Measures DVT/VTE Risk/Contraindication: Risk Factor Score Per Nursin RFS Level Per Nursing on Admit: 4+=Very High HANG LOUIS MD Aug 28, 2018 09:23
--- NOTE | 2018-08-28 11:30 | NUR ---
Important Message from Medicare presented/reviewed/signed and placed in patient chart. Patient voiced no intention to appeal and deny any needs or further questions at this time.
[2018-08-28 12:00] VITALS: BP 136/65
--- NOTE | 2018-08-28 13:00 | NUR ---
REPORT CALLED TO TADEO Jack AT [facility].
--- NOTE | 2018-08-28 13:30 | NUR ---
PINKY BRYANT demonstrates understanding of discharge instructions and accurately returns instructions upon questioning. Copy of Post-Discharge Instructions given to PT. PINKY BRYANT is able to manage continuing needs after discharge. Patients belongings returned to PT. Patient discharged from [facility] on 08/28/18 at 1330. PINKY BRYANT left floor via W/C, accompanied by STAFF AND [facility] STAFF PER VIA ALIDA MISTY.
--- NOTE | 2018-08-28 13:37 | NUR ---
CM/SS. Patient discharged to new Medicare skilled placement with [facility] via their transport this p.m. 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 CARE Assessment completed with patient and her sister/guardian Bee Stroud, processed with [employer]. Faxed CARE and orders to [facility], prepared packet to accompany patient. Bee went to [facility] to get clothing for patient. Patient has LTC insurance and family utilized these funds for 24-7 care in her home prior to the move to [facility] assisted living. Bee was having to keep caregivers scheduled which was a daunting task and they were having to supplement the LTC insurance about $3500 additional per month. Unit RN fully updated about transfer.
== END 2018-08-28 13:30 | DRG 481 ==
LOC: EDUNIT# 13:05 → ER 13:06 → 4TH 15:10
PROVIDERS: ADMIT Family Medicine; ATTEND Family Medicine
PROC: 0QS736Z Reposition Left Upper Femur with Intramedullary Internal Fixation Device, Percutaneous Approach (ICD-10-PCS; principal; 2018-08-24 16:41)
DX: M80.052A Age-related osteoporosis with current pathological fracture, left femur, initial encounter for fracture (principal); S06.9X9A Unspecified intracranial injury with loss of consciousness of unspecified duration, initial encounter; N39.0 Urinary tract infection, site not specified; K86.1 Other chronic pancreatitis; D64.9 Anemia, unspecified; G30.9 Alzheimer's disease, unspecified; F02.80 Dementia in other diseases classified elsewhere, unspecified severity, without behavioral disturbance, psychotic disturbance, mood disturbance, and anxiety; E87.6 Hypokalemia; I10 Essential (primary) hypertension; K21.9 Gastro-esophageal reflux disease without esophagitis; F41.9 Anxiety disorder, unspecified; F32.9 Major depressive disorder, single episode, unspecified; R53.1 Weakness; Z87.19 Personal history of other diseases of the digestive system; W19.XXXA Unspecified fall, initial encounter; Y92.098 Other place in other non-institutional residence as the place of occurrence of the external cause
CPT/HCPCS: 36415; 51702; 70450; 71045; 72125; 73552; 80053; 81000; 83540; 85025; 85610; 85730; 87081; 87088

== ENCOUNTER 2018-09-09 14:55 | Inpatient (IN) | payer MEDICARE, OTHER ==
[~2018-09-09] VITALS: Ht 170.2 cm; Wt 75.9 kg
[2018-09-09] VITALS (9 sets, daily range): BP systolic 94–153; BP diastolic 15–96
[~2018-09-09 14:55] MED LIST: ACET-2267 PO; ACHD5005 PO; ASPI-983 PO; CHOL5000 PO; COLE1TAB PO; ENOX30DI4 SC; ISOS30TA3; LIPA1CAP67 PO; MEMA1CAP3 PO; METR-145 PO; METR500T PO; NEBI20TA2 PO; NIFE90TA33 PO; PANT40TA3 PO; PROM12.59 PO; SERT100T8 PO; SPIR25TA5 PO; TRAM50TA2 PO
[2018-09-09] MEDS ORDERED: ONDANSETRON 4 MG/2 ML (SDV) Z0FRAN ONE (15:04)
--- OUTSIDE RECORDS SUMMARY | 2018-09-09 15:08 | XMS REPORT | CCD ---
Author Author Loretta Santos MD, [facility] Address [address] [place] [address] Phone Care Team Providers Care Instrument Room Technician Name Role Phone PP Unavailable CCM Unavailable Summary Purpose Interface Exchange Insurance Providers Payer name Policy type / Coverage type Covered green party ID Effective Begin Date Effective End Date WPS Medicare Part B Medicare Part B [id number] Unknown [employer] [place] Medicare Part B [id number] Unknown Family history Mother Diagnosis Age At [...] ICD-9: 294.10 ICD-10: F02.80 Active 08/14/2018 Unknown Encounter for follow-up examination after completed treatment for conditions other than malignant neoplasm ICD-9: V67.59 ICD-10: Z09 Active 09/04/2018 Unknown Essential (primary) hypertension ICD-9: 401.1 ICD-10: I10 Active 08/14/2018 Unknown Nausea ICD-9: 787.02 ICD-10: R11.0 Active 09/04/2018 Unknown Pain in left hip ICD-9 : 719.45 ICD-10: M25.552 Active 09/04/2018 Unknown Idiopathic acute pancreatitis without necrosis or infection ICD-9: 577.0 ICD-10: K85.00 Active 08/14/2018 Unknown Problems Condition Codes Effective Dates Condition Status Dementia in other diseases classified elsewhere without behavioral disturbance ICD-9: 294.10 ICD-10: F02.80 08/14/2018 Active Encounter for follow-up examination after completed treatment for conditions other than malignant neoplasm ICD-9: V67.59 ICD-10: Z09 09/04/2018 Active Essential (primary) hypertension ICD-9: 401.1 ICD-10: I10 08/14/2018 Active Nausea ICD-9: 787.02 ICD-10: R11.0 09/04/2018 Active Pain in left hip ICD-9 : 719.45 ICD-10: M25.552 09/04/2018 Active Idiopathic acute pancreatitis without necrosis or infection ICD-9: 577.0 ICD-10: K85.00 08/14/2018 Active Medications Medication Codes Instructions Start Date Stop Date Status Fill Instructions tramadol 50 mg tablet RxNorm: 797320 1 Tablet(s) PO TID 2018 No Stop Date Active tramadol 50 mg tablet RxNorm: 964840 1 Tablet(s) PO TID as needed 09/04/2018 09/04/2018 Inactive aspirin 81 mg tablet RxNorm: 985789 1 Tablet(s) PO daily 201809/12/2018 Active Bystolic 20 mg tablet RxNorm: 442498 1 Tablet(s) PO daily 201809/12/2018 Active Creon 36,000 unit-114,000 unit-180,000 unit capsule, delayed release RxNorm: 4380998 2 Capsule(s) PO TID No Start Date Active promethazine 12.5 mg tablet RxNorm: 350246 1 Tablet(s) PO Q4H as needed No Start Date Active colestipol 1 gram tablet RxNorm: 5299329 1 Tablet(s) PO BID No Start Date Active Tylenol 500 mg RxNorm : 2 PO Q4H as needed No Start Date Active Creon 36,000 unit-114,000 unit-180,000 unit capsule, delayed release RxNorm: 8201703 1 Capsule(s) PO as needed No Start Date Active Vitamin D3 5,000 unit tablet RxNorm: 527730 1 Tablet(s) PO daily No Start Date Active hydrocodone 5 mg-acetaminophen 325 mg tablet RxNorm: 956849 1 Tablet(s) PO Q6 as needed No Start Date Active spironolactone 25 mg tablet RxNorm: 249284 1/2 Tablet(s) PO daily No Start Date Active Protonix 40 mg tablet,delayed release RxNorm: 357987 1 Tablet(s) PO daily No Start Date Active Zofran 4 mg tablet RxNorm: 403190 1 Tablet(s) PO Q6 as needed No Start Date Active nifedipine ER 90 mg tablet,extended release 24 hr RxNorm: 4739620 1 Tablet(s) PO QHS No Start Date Active sertraline 100 mg tablet RxNorm: 096545 2 Tablet(s) PO daily No Start Date Active Namzaric 28 mg-10 mg capsule sprinkle,extended release RxNorm: 2948993 1 Capsule(s ) PO daily No Start Date 09/04/2018 Inactive tramadol 50 mg tablet RxNorm: 388284 1 Tablet(s) PO Q6 as needed No Start Date 09/03/2018 Inactive Medication Administered No Medication Administered data Immunizations No Immunization data Assessments Condition Codes Effective Dates Pain in left hip ICD-10: M25.552 ICD-9: 719.45 09/04/2018 Encounter for follow-up examination after completed treatment for conditions other than malignant neoplasm ICD-10: Z09 ICD-9: V67.59 09/04/2018 Nausea ICD-10: R11.0 ICD-9: 787.02 09/04/2018 Essential (primary) hypertension ICD-10: I10 ICD-9: 401.1 09/04/2018 Dementia in other diseases classified elsewhere without behavioral disturbance ICD-10: F02.80 ICD-9: 294.10 08/14/2018 Idiopathic acute pancreatitis without necrosis or infection ICD-10: K85.00 ICD-9: 577.0 08/14/2018 Reason For Visit Reason For Visit Effective Dates Notes Hospital Follow Up 09/04/2018 hypertension 08/14/2018 Results No Results data Review of Systems System Result Effective Dates Constitutional recent illness 09/04/2018 Constitutional No anorexia 09/04/2018 Constitutional No night sweats 2018 Constitutional No chills 09/04/2018 Constitutional No diaphoresis 09/04/2018 Constitutional fatigue 09/04/2018 Constitutional No fever 09/04/2018 Constitutional No insomnia 09/04/2018 Constitutional No malaise 09/04/2018 Constitutional No weight loss 09/04/2018 Constitutional No weight gain 09/04/2018 Eyes No eye discharge 09/04/2018 Eyes No eye erythema 09/04/2018 Ears/Nose/Throat/Neck No dizziness 2018 Cardiovascular No chest pain/pressure 09/2018 Cardiovascular No dyspnea 09/04/2018 Cardiovascular fatigue 09/04/2018 Cardiovascular hypertension 09/04/2018 Respiratory No cough 09/04/2018 Gastrointestinal No abdominal pain 2018 Gastrointestinal No constipation 2018 Gastrointestinal nausea 09/04/2018 Gastrointestinal No vomiting 09/04/2018 Genitourinary/Nephrology No dysuria 09/04 Musculoskeletal joint complaint 2018 Dermatologic No rash 09/04/2018 Dermatologic No sores 09/04/2018 Neurologic memory loss 09/04/2018 Psychiatric anxiety 09/04/2018 Endocrine No cold sensitivity 09/04/2018 Constitutional recent illness 08/14/2018 Constitutional No anorexia [...] 1994 Constitutional general appearance Overall: well developed 09/04/2018 None Full Exam - General 1994 Constitutional general appearance Overall: in no acute distress 09/04/2018 None Full Exam - General 1994 Constitutional general appearance Overall: well nourished 09/04/2018 None Full Exam - General 1994 Eyes conjunctiva /eyelids Overall: conjunctiva clear 09/04/2018 None Full Exam - General 1994 Eyes pupils and irises Overall: pupils equal, round, reactive to light and accomodation 09/04/2018 None Full Exam - General 1994 Ears/Nose/Throat otoscopic exam Overall: external auditory canals clear 09/04/2018 None Full Exam - General 1994 Ears/Nose/Throat otoscopic exam Overall: tympanic membranes clear 09/04/2018 None Full Exam - General 1994 Ears/Nose/Throat oral cavity/pharynx/larynx Overall: oral mucosa clear 09/04/2018 None Full Exam - General 1994 Respiratory auscultation Overall: breath sounds clear bilaterally 09/04/2018 None Full Exam - General 1994 Respiratory respiratory effort/rhythm Overall: no retractions 09/04/2018 None Full Exam - General 1994 Respiratory respiratory effort/rhythm Overall: normal rate 09/04/2018 None Full Exam - General 1994 Cardiovascular auscultation of heart Overall: regular rate 09/04/2018 None Full Exam - General 1994 Cardiovascular auscultation of heart Overall: normal heart sounds 09/04/2018 None Full Exam - General 1994 Musculoskeletal head and neck Overall: head atraumatic 09/04/2018 None Full Exam - General 1994 Integument inspection of skin Overall: few scattered moles, no gross abnormalities 09/04/2018 None Full Exam - General 1994 Neurologic cranial nerves Overall: crainial nerves 2 - 12 grossly intact 09/04/2018 None Full Exam - General 1994 Psychiatric orientation/consciousness Overall: oriented to person, place and time 09/04/2018 None Full Exam - General 1994 Abdomen abdominal exam Overall: normal bowel sounds 09/04/2018 None Full Exam - General 1994 Abdomen abdominal exam Upper quadrant: dull pain 09/04/2018 None Full Exam - General 1994 Constitutional general appearance Assistive Device: wheelchair 09/04/2018 None Full Exam - General 1994 Constitutional [...] No Procedures data Vital Signs Date Vital 09/04/2018 Blood Pressure 1: 138/68 Code : 8480-6 Heart Rate 1: 72 bpm Height: SpO2: 96% Weight: 08/14/2018 Blood Pressure 1: 142/70 Code : 8480-6 BMI: 23.7 Code : 53765-7 Heart Rate 1 : 76 bpm Height: 5'6" SpO2: 96% Weight: 147 lbs Functional Status No Functional Status data History of Present Illness Symptom Name Status Result Effective Date Notes _ pain 09/04/2018 left hip fracture Onset of Symptom _ weeks ago 09/04/2018 None Pertinent Findings pain 09/04/2018 None Onset and Resolution ongoing 09/04/2018 None Significant Medical Conditions hip fracture after fall 09/04/2018 None Mechanism of injury unknown 09/04/2018 None Alleviating Factors activity 09/04/2018 None Quality primary hypertension 08/14/2018 None Onset of Symptom _ years ago 08/14/2018 None Blood Pressure Values patient checking blood pressure at home - did not bring in readings 2018 checked at [facility] monthly Pertinent Findings Denies anxiety 08/14/2018 None [...] data Encounters Encounter Performer Location Codes Date EST. PATIENT, LEVEL IV Diagnosis: Essential (primary) hypertension[ICD10: I10] Diagnosis: Nausea[ICD10: R11.0] Diagnosis: Pain in left hip[ICD10: M25.552] Diagnosis: Encounter for follow-up examination after completed treatment for conditions other than malignant neoplasm[ICD10: Z09] [facility] CPT-4: 00589 09/04/2018 OFFICE VISIT, NEW - LEVEL 3 Diagnosis: Essential (primary) hypertension[ICD10: I10] Diagnosis: Idiopathic acute pancreatitis without necrosis or infection[ICD10: K85.00] Diagnosis: Dementia in other diseases classified elsewhere without behavioral disturbance[ICD10: F02.80] [facility] CPT-4: 03371 08/14/2018 Plan of Care Planned Activity Notes Codes Status Date Visit Plan: Hypertension - well controlled - continue with current medications, continue with no added salt diet. Pt has been encouraged to exercise daily. The pt has been advised to call the office if there are any acute concerns about change in blood pressure readings at home. Nausea- continue with zofran as needed Left hip pain -hospital follow up for left hip fracture-continue with PT 09/04/2018 Appointment: Loretta Santos WPtel: [address] [place], [place] [phone] [place] (30 min) Complex 09/04/2018 Patient Education: Patient Medication Summary Completed 09/04/2018 Appointment: Loretta Santos WPtel: [phone] (30 min) Complex 08/28/2018 Visit Plan: Hypertension - well controlled - [...] loss-continue namzaric -no changes in medications 08/14/2018 Appointment: Loretta Santos WPtel: [address] [place], [place] [phone] New Patient 08/14/2018 Patient Education: Patient Medication Summary Completed [...] Memory loss-continue namzaric -no changes in medications . Hypertension - well controlled - continue with current medications, continue with no added salt diet. Pt has been encouraged to exercise daily. The pt has been advised to call the office if there are any acute concerns about change in blood pressure readings at home. Nausea- continue with zofran as needed Left hip pain -hospital follow up for left hip fracture-continue with PT
--- OUTSIDE RECORDS SUMMARY | 2018-09-09 15:08 | XMS REPORT | CCD ---
Author Author Loretta Santos MD, [facility] Address [address] [place] [address] Phone Care Team Providers Care Squeegee Tender Name Role Phone PP Unavailable CCM Unavailable Summary Purpose Interface Exchange Insurance Providers Payer name Policy type / Coverage type Covered alliance party ID Effective Begin Date Effective End Date WPS Medicare Part B Medicare Part B [id number] Unknown [employer] [place] Medicare Part B [id number] Unknown Family history Mother Diagnosis Age At [...] Fill Instructions tramadol 50 mg tablet RxNorm: 169054 1 Tablet(s) PO TID 2018 No Stop Date Active tramadol 50 mg tablet RxNorm: 324381 1 Tablet(s) PO TID as needed 09/04/2018 09/04/2018 Inactive aspirin 81 mg tablet RxNorm: 332006 1 Tablet(s) PO daily 201809/12/2018 Active Bystolic 20 mg tablet RxNorm: 883691 1 Tablet(s) PO daily 201809/12/2018 Active Creon 36,000 unit-114,000 unit-180,000 unit capsule, delayed release RxNorm: 6262703 2 Capsule(s) PO TID No Start Date Active promethazine 12.5 mg tablet RxNorm: 373369 1 Tablet(s) PO Q4H as needed No Start Date Active colestipol 1 gram tablet RxNorm: 6276030 1 Tablet(s) PO BID No Start Date Active Tylenol 500 mg RxNorm : 2 PO Q4H as needed No Start Date Active Creon 36,000 unit-114,000 unit-180,000 unit capsule, delayed release RxNorm: 2256220 1 Capsule(s) PO as needed No Start Date Active Vitamin D3 5,000 unit tablet RxNorm: 300300 1 Tablet(s) PO daily No Start Date Active hydrocodone 5 mg-acetaminophen 325 mg tablet RxNorm: 447770 1 Tablet(s) PO Q6 as needed No Start Date Active Namzaric 28 mg-10 mg capsule sprinkle,extended release RxNorm: 6383375 1 Capsule(s ) PO daily No Start Date Active spironolactone 25 mg tablet RxNorm: 420346 1/2 Tablet(s) PO daily No Start Date Active Protonix 40 mg tablet,delayed release RxNorm: 259236 1 Tablet(s) PO daily No Start Date Active Zofran 4 mg tablet RxNorm: 632836 1 Tablet(s) PO Q6 as needed No Start Date Active nifedipine ER 90 mg tablet,extended release 24 hr RxNorm: 4631722 1 Tablet(s) PO QHS No Start Date Active sertraline 100 mg tablet RxNorm: 055770 2 Tablet(s) PO daily No Start Date Active tramadol 50 mg tablet RxNorm: 538768 1 Tablet(s) PO Q6 as needed No [...] accomodation 09/04/2018 None Full Exam - General 1995 Ears/Nose/Throat otoscopic exam Overall: external auditory canals [...] Code : 8480-6 BMI: 23.7 Code : 61709-7 Heart Rate 1 : 76 bpm Height: [...] neoplasm[ICD10: Z09] [facility] CPT-4: 70626 09/04/2018 OFFICE VISIT, NEW - LEVEL 3 Diagnosis: Essential (primary) hypertension[ICD10: I10] Diagnosis: Idiopathic acute pancreatitis without necrosis or infection[ICD10: K85.00] Diagnosis: Dementia in other diseases classified elsewhere without behavioral disturbance[ICD10: F02.80] [facility] CPT-4: 74647 08/14/2018 Plan of Care Planned Activity Notes [...] with PT 09/04/2018 Appointment: Loretta Santos WPtel: [address] [phone] (30 min) Complex 09/04/2018 Patient Education: Patient Medication Summary Completed 09/04/2018 Appointment: Loretta Santos WPtel: [phone] (30 min) Complex 08/28/2018 Visit Plan: Hypertension [...] -no changes in medications 08/14/2018 Appointment: [facility] Santostel[phone] New Patient 08/14/2018 Patient Education: Patient Medication [...]
--- OUTSIDE RECORDS SUMMARY | 2018-09-09 15:08 | XMS REPORT | CCD ---
Author Author Loretta Santos MD, [facility] Address [address] [place] [address] Phone Care Team Providers Care Tie Inspector Name Role Phone PP Unavailable CCM Unavailable Summary Purpose Interface Exchange Insurance Providers Payer name Policy type / Coverage type Covered alliance party ID Effective Begin Date Effective End Date WPS Medicare Part B Medicare Part B [id number] Unknown [employer] [place] Medicare Part B [id number] Unknown Family history Mother Diagnosis Age At [...] Fill Instructions tramadol 50 mg tablet RxNorm: 035559 1 Tablet(s) PO TID as needed 09/04/2018 No Stop Date Active aspirin 81 mg tablet RxNorm: 319935 1 Tablet(s) PO daily 201809/12/2018 Active Bystolic 20 mg tablet RxNorm: 668645 1 Tablet(s) PO daily 201809/12/2018 Active Creon 36,000 unit-114,000 unit-180,000 unit capsule, delayed release RxNorm: 3602397 2 Capsule(s) PO TID No Start Date Active promethazine 12.5 mg tablet RxNorm: 769327 1 Tablet(s) PO Q4H as needed No Start Date Active colestipol 1 gram tablet RxNorm: 6607785 1 Tablet(s) PO BID No Start Date Active Tylenol 500 mg RxNorm : 2 PO Q4H as needed No Start Date Active Creon 36,000 unit-114,000 unit-180,000 unit capsule, delayed release RxNorm: 0612621 1 Capsule(s) PO as needed No Start Date Active Vitamin D3 5,000 unit tablet RxNorm: 339143 1 Tablet(s) PO daily No Start Date Active hydrocodone 5 mg-acetaminophen 325 mg tablet RxNorm: 610982 1 Tablet(s) PO Q6 as needed No Start Date Active Namzaric 28 mg-10 mg capsule sprinkle,extended release RxNorm: 8380375 1 Capsule(s ) PO daily No Start Date Active spironolactone 25 mg tablet RxNorm: 398202 1/2 Tablet(s) PO daily No Start Date Active Protonix 40 mg tablet,delayed release RxNorm: 533422 1 Tablet(s) PO daily No Start Date Active Zofran 4 mg tablet RxNorm: 716114 1 Tablet(s) PO Q6 as needed No Start Date Active nifedipine ER 90 mg tablet,extended release 24 hr RxNorm: 6179229 1 Tablet(s) PO QHS No Start Date Active sertraline 100 mg tablet RxNorm: 377974 2 Tablet(s) PO daily No Start Date Active tramadol 50 mg tablet RxNorm: 934571 1 Tablet(s) PO Q6 as needed No [...] Code : 8480-6 BMI: 23.7 Code : 32273-6 Heart Rate 1 : 76 bpm Height: [...] not bring in readings 2018 [facility] Pertinent Findings Denies anxiety 08/14/2018 [...] data Encounters Encounter Performer Location Codes Date ( EST. PATIENT, LEVEL IV Diagnosis: Essential (primary) hypertension[ICD10: I10] Diagnosis: Nausea[ICD10: R11.0] Diagnosis: Pain in left hip[ICD10: M25.552] Diagnosis: Encounter for follow-up examination after completed treatment for conditions other than malignant neoplasm[ICD10: Z09] [facility] CPT-4: 19445 09/04/2018 OFFICE VISIT, NEW - LEVEL 3 Diagnosis: Essential (primary) hypertension[ICD10: I10] Diagnosis: Idiopathic acute pancreatitis without necrosis or infection[ICD10: K85.00] Diagnosis: Dementia in other diseases classified elsewhere without behavioral disturbance[ICD10: F02.80] [facility] CPT-4: 44520 08/14/2018 Plan of Care Planned Activity Notes [...] for left hip fracture-continue with PT 09/04/2018 Patient Education: Patient Medication Summary Completed 09/04/2018 Appointment: Loretta Santos WPtel: [address] [place], [place] [phone] (30 min) Complex 08/28/2018 Visit Plan: Hypertension [...] in medications 08/14/2018 Appointment: Loretta Santos WPtel: [address] [place], [place] [phone] New Patient 08/14/2018 Patient Education: Patient Medication [...]
--- OUTSIDE RECORDS SUMMARY | 2018-09-09 15:09 | XMS REPORT | Continuity of Care Document ---
Author Organization Unknown Address Unknown Allergies Active Description Code Type Severity Reaction Onset Reported/Identified Relationship to Patient Clinical Status Yes codeine [id number] Drug Allergy Mild confusion 08/23/2018 Yes codeine [id number] Drug Allergy Unknown N/A 08/23/2018 Yes Sulfa (Sulfonamide Antibiotics) [id number] Drug Allergy Unknown N/A 2018 Medications There is no data. 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, UNSPECIFIED 08/28/2018 HANG URRUTIA MD, Ot I10 ESSENTIAL (PRIMARY) HYPERTENSION 08/28/2018 HANG URRUTIA MD, Ot 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 08/28/2018 HANG URRUTIA MD, Ot K86.1 OTHER CHRONIC PANCREATITIS 08/28/2018 HANG URRUTIA MD Ot M80.052A AGE-REL OSTEOPOR W CURRENT PATH FRACTURE 08/28/2018 HANG URRUTIA MD, Ot 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 08/28/2018 HANG URRUTIA MD, Ot N39.0 URINARY TRACT INFECTION, SITE NOT SPECIF 08/28/2018 HANG URRUTIA MD, Ot R53.1 WEAKNESS 08/28/2018 HANG URRUTIA MD Ot S06.9X9A UNSP INTRACRANIAL INJURY W LOC OF UNSP D 08/28/2018 HANG URRUTIA MD Ot S72.142A DISPLACED INTERTROCHANTERIC FRACTURE OF 08/28/2018 HANG URRUTIA MD Ot W19.XXXA UNSPECIFIED FALL, INITIAL ENCOUNTER 08/28/2018 HANG URRUTIA MD Ot Y92.[address] IN OTH NON-INSTITUTIONAL RESID 08/28/2018 HANG URRUTIA MD Ot Z87.19 PERSONAL HISTORY OF OTHER DISEASES OF TH 08/28/2018 HANG URRUTIA MD Ot F03.90 UNSPECIFIED DEMENTIA WITHOUT BEHAVIORAL 08/28/2018 HANG URRUTIA MD Ot F32.9 MAJOR DEPRESSIVE DISORDER, SINGLE EPISOD 08/28/2018 HANG URRUTIA MD Ot F41.9 ANXIETY DISORDER, UNSPECIFIED 08/28/2018 HANG URRUTIA MD Ot I10 ESSENTIAL (PRIMARY) HYPERTENSION 08/28/2018 HANG URRUTIA MD Ot 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 08/28/2018 HANG URRUTIA MD Ot K86.1 OTHER CHRONIC PANCREATITIS 08/28/2018 HANG URRUTIA MD Ot 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 08/28/2018 HANG URRUTIA MD Ot N39.0 URINARY TRACT INFECTION, SITE NOT SPECIF 08/28/2018 HANG URRUTIA MD Ot R53.1 WEAKNESS 08/28/2018 HANG URRUTIA MD Ot S06.9X9A UNSP INTRACRANIAL INJURY W LOC OF UNSP D 08/28/2018 HANG URRUTIA MD Ot S72.142A DISPLACED INTERTROCHANTERIC FRACTURE OF 08/28/2018 HANG URRUTIA MD Ot W19.XXXA UNSPECIFIED FALL, INITIAL ENCOUNTER 08/28/2018 HANG URRUTIA MD Ot Y92.[address] IN OTH NON-INSTITUTIONAL RESID 08/28/2018 HANG URRUTIA MD, Ot Z87.19 PERSONAL HISTORY OF OTHER DISEASES OF TH 08/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 Ot K85.90 ACUTE PANCREATITIS WITHOUT NECROSIS OR I 08/28/2018 HANG URRUTIA MD Ot F03.90 UNSPECIFIED DEMENTIA WITHOUT BEHAVIORAL 08/28/2018 HANG URRUTIA MD, Ot F32.9 MAJOR DEPRESSIVE DISORDER, SINGLE EPISOD 08/28/2018 HANG URRUTIA MD, Ot F41.9 ANXIETY DISORDER, UNSPECIFIED 08/28/2018 HANG URRUTIA MD, Ot I10 ESSENTIAL (PRIMARY) HYPERTENSION 08/28/2018 HANG URRUTIA MD, Ot 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 08/28/2018 HANG URRUTIA MD, Ot K86.1 OTHER CHRONIC PANCREATITIS 08/28/2018 HANG URRUTIA MD, Ot 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 08/28/2018 HANG URRUTIA MD, Ot N39.0 URINARY TRACT INFECTION, SITE NOT SPECIF 08/28/2018 HANG URRUTIA MD, Ot R53.1 WEAKNESS 08/28/2018 HANG URRUTIA MD, Ot S06.9X9A UNSP INTRACRANIAL INJURY W LOC OF UNSP D 08/28/2018 HANG URRUTIA MD, Ot S72.142A DISPLACED INTERTROCHANTERIC FRACTURE OF 08/28/2018 HANG URRUTIA MD, Ot W19.XXXA UNSPECIFIED FALL, INITIAL ENCOUNTER 08/28/2018 HANG URRUTIA MD, Ot Y92.[address] IN OTH NON-INSTITUTIONAL RESID 08/28/2018 HANG URRUTIA MD, Ot Z87.19 PERSONAL HISTORY OF OTHER DISEASES OF TH Procedures Code Description Performed By Performed On [id number] REPOSITION LEFT UPPER FEMUR WITH INTRAME 08/24/2018 Results Test Result Range Automated blood complete blood count (hemogram) panel - 08/14/18 15:48 Blood leukocytes automated count (number/volume) 12.7 10*3/uL 4.3-11.0 Blood erythrocytes automated count (number/volume) 4.02 10*6/uL 4.35-5.85 Venous blood hemoglobin measurement (mass/volume) 12.5 g/dL 11.5-16.0 Blood hematocrit (volume fraction) 38 % 35-52 Automated erythrocyte mean corpuscular volume 95 [foz_us] 80-99 Automated erythrocyte mean corpuscular hemoglobin (mass per erythrocyte) 31 pg 25-34 Automated erythrocyte mean corpuscular hemoglobin concentration measurement ( mass/volume) 33 g/dL 32-36 Automated erythrocyte distribution width ratio 14.3 % 10.0-14.5 Automated blood platelet count (count/volume) 397 10*3/uL 130-400 Automated blood platelet mean volume measurement 9.8 [foz_us] 7.4-10.4 Comprehensive metabolic panel - 08/14/18 15:48 Serum or plasma sodium measurement (moles/volume) 143 mmol/L 135-145 Serum or plasma potassium measurement (moles/volume) 3.9 mmol/L 3.6-5.0 Serum or plasma chloride measurement (moles/volume) 108 mmol/L 98-107 Carbon dioxide 22 mmol/L 21-32 Serum or plasma anion gap determination (moles/volume) 13 mmol/L 5-14 Serum or plasma urea nitrogen measurement (mass/volume) 23 mg/dL 7-18 Serum or plasma creatinine measurement (mass/volume) 1.04 mg/dL 0.60-1.30 Serum or plasma urea nitrogen/creatinine mass ratio 22 NRG Serum or plasma creatinine measurement with calculation of estimated glomerular filtration rate 50 NRG Serum or plasma glucose measurement (mass/volume) 104 mg/dL 70-105 Serum or plasma calcium measurement (mass/volume) 9.7 mg/dL 8.5-10.1 Serum or plasma total bilirubin measurement (mass/volume) 0.3 mg/dL 0.1-1.0 Serum or plasma alkaline phosphatase measurement (enzymatic activity/volume) 68 U/L 40-136 Serum or plasma aspartate aminotransferase measurement (enzymatic activity/ volume) 25 U/L 5-34 Serum or plasma alanine aminotransferase measurement (enzymatic activity/volume ) 24 U/L 0-55 Serum or plasma protein measurement (mass/volume) 6.4 g/dL 6.4-8.2 Serum or plasma albumin measurement (mass/volume) 3.6 g/dL 3.2-4.5 CALCIUM CORRECTED 10.0 mg/dL 8.5-10.1 Serum or plasma amylase measurement (enzymatic activity/volume) - 08/14/18 15: 48 Serum or plasma amylase measurement (enzymatic activity/volume) 47 U /L 25-125 Lipase - 08/14/18 15:48 Lipase 77 U/L 8-78 Methicillin resistant Staphylococcus aureus (MRSA) screening culture - 00:35 Methicillin resistant Staphylococcus aureus (MRSA) screening culture NEG NRG Complete blood count (CBC) with automated white blood cell (WBC) differential - 08/23/18 13:08 Blood leukocytes automated count (number/volume) 13.7 10*3/uL 4.3-11.0 Blood erythrocytes automated count (number/volume) 4.18 10*6/uL 4.35-5.85 Venous blood hemoglobin measurement (mass/volume) 12.6 g/dL 11.5-16.0 Blood hematocrit (volume fraction) 39 % 35-52 Automated erythrocyte mean corpuscular volume 94 [foz_us] 80-99 Automated erythrocyte mean corpuscular hemoglobin (mass per erythrocyte) 30 pg 25-34 Automated erythrocyte mean corpuscular hemoglobin concentration measurement ( mass/volume) 32 g/dL 32-36 Automated erythrocyte distribution width ratio 14.7 % 10.0-14.5 Automated blood platelet count (count/volume) 475 10*3/uL 130-400 Automated blood platelet mean volume measurement 9.8 [foz_us] 7.4-10.4 Automated blood neutrophils/100 leukocytes 71 % 42-75 Automated blood lymphocytes/100 leukocytes 17 % 12-44 Blood monocytes/100 leukocytes 11 % 0-12 Automated blood eosinophils/100 leukocytes 1 % 0-10 Automated blood basophils/100 leukocytes 0 % 0-10 Blood neutrophils automated count (number/volume) 9.8 10*3 1.8-7.8 Blood lymphocytes automated count (number/volume) 2.4 10*3 1.0-4.0 Blood monocytes automated count (number/volume) 1.5 10*3 0.0-1.0 Automated eosinophil count 0.1 10*3/uL 0.0-0.3 Automated blood basophil count (count/volume) 0.0 10*3/uL 0.0-0.1 PT panel in platelet poor plasma by coagulation assay - 08/23/18 13:08 Prothrombin time (PT) in platelet poor plasma by coagulation assay 14.1 s 12.2-14.7 INR in platelet poor plasma or blood by coagulation assay 1.1 0.8-1.4 Activated partial thromboplastin time (aPTT) in platelet poor plasma bycoagulation assay - 08/23/18 13:08 Activated partial thromboplastin time (aPTT) in platelet poor plasma bycoagulation assay 29 s 24-35 Comprehensive metabolic panel - 08/23/18 13:08 Serum or plasma sodium measurement (moles/volume) 141 mmol/L 135-145 Serum or plasma potassium measurement (moles/volume) 3.3 mmol/L 3.6-5.0 Serum or plasma chloride measurement (moles/volume) 106 mmol/L 98-107 Carbon dioxide 22 mmol/L 21-32 Serum or plasma anion gap determination (moles/volume) 13 mmol/L 5-14 Serum or plasma urea nitrogen measurement (mass/volume) 13 mg/dL 7-18 Serum or plasma creatinine measurement (mass/volume) 1.13 mg/dL 0.60-1.30 Serum or plasma urea nitrogen/creatinine mass ratio 12 NRG Serum or plasma creatinine measurement with calculation of estimated glomerular filtration rate 46 NRG Serum or plasma glucose measurement (mass/volume) 161 mg/dL 70-105 Serum or plasma calcium measurement (mass/volume) 9.1 mg/dL 8.5-10.1 Serum or plasma total bilirubin measurement (mass/volume) 0.2 mg/dL 0.1-1.0 Serum or plasma alkaline phosphatase measurement (enzymatic activity/volume) 56 U/L 40-136 Serum or plasma aspartate aminotransferase measurement (enzymatic activity/ volume) 33 U/L 5-34 Serum or plasma alanine aminotransferase measurement (enzymatic activity/volume ) 22 U/L 0-55 Serum or plasma protein measurement (mass/volume) 5.8 g/dL 6.4-8.2 Serum or plasma albumin measurement (mass/volume) 3.2 g/dL 3.2-4.5 CALCIUM CORRECTED 9.7 mg/dL 8.5-10.1 Complete urinalysis with reflex to culture - 08/23/18 14:33 Urine color determination YELLOW NRG Urine clarity determination CLEAR NRG Urine pH measurement by test strip 5 5-9 Specific gravity of urine by test strip 1.015 1.016- 1.022 Urine protein assay by test strip, semi-quantitative 2+ NEGATIVE Urine glucose detection by automated test strip NEGATIVE NEGATIVE Erythrocytes detection in urine sediment by light microscopy 1+ NEGATIVE Urine ketones detection by automated test strip NEGATIVE NEGATIVE Urine nitrite detection by test strip POSITIVE NEGATIVE Urine total bilirubin detection by test strip NEGATIVE NEGATIVE Urine urobilinogen measurement by automated test strip (mass/volume) NORMAL NORMAL Urine leukocyte esterase detection by dipstick 2+ NEGATIVE Automated urine sediment erythrocyte count by microscopy (number/high power field) [HPF] NRG Automated urine sediment leukocyte count by microscopy (number/high power field ) [HPF] NRG Bacteria detection in urine sediment by light microscopy TRACE NRG Crystals detection in urine sediment by light microscopy NONE NRG Casts detection in urine sediment by light microscopy PRESENT NRG Mucus detection in urine sediment by light microscopy NEGATIVE NRG Complete urinalysis with reflex to culture YES NRG Hyaline casts detection in urine sediment by light microscopy 10-25 NRG Bacterial urine culture - 08/23/18 14:33 Bacterial urine culture NG NRG Complete blood count (CBC) with automated white blood cell (WBC) differential - 08/27/18 05:23 Blood leukocytes automated count (number/volume) 16.3 10*3/uL 4.3-11.0 Blood erythrocytes automated count (number/volume) 2.74 10*6/uL 4.35-5.85 Venous blood hemoglobin measurement (mass/volume) 8.4 g/dL 11.5-16.0 Blood hematocrit (volume fraction) 26 % 35-52 Automated erythrocyte mean corpuscular volume 96 [foz_us] 80-99 Automated erythrocyte mean corpuscular hemoglobin (mass per erythrocyte) 31 pg 25-34 Automated erythrocyte mean corpuscular hemoglobin concentration measurement ( mass/volume) 32 g/dL 32-36 Automated erythrocyte distribution width ratio 14.2 % 10.0-14.5 Automated blood platelet count (count/volume) 380 10*3/uL 130-400 Automated blood platelet mean volume measurement 10.2 [foz_us] 7.4-10.4 Automated blood neutrophils/100 leukocytes 79 % 42-75 Automated blood lymphocytes/100 leukocytes 12 % 12-44 Blood monocytes/100 leukocytes 9 % 0-12 Automated blood eosinophils/100 leukocytes 0 % 0-10 Automated blood basophils/100 leukocytes 0 % 0-10 Blood neutrophils automated count (number/volume) 12.8 10*3 1.8-7.8 Blood lymphocytes automated count (number/volume) 1.9 10*3 1.0-4.0 Blood monocytes automated count (number/volume) 1.5 10*3 0.0-1.0 Automated eosinophil count 0.1 10*3/uL 0.0-0.3 Automated blood basophil count (count/volume) 0.0 10*3/uL 0.0-0.1 Comprehensive metabolic panel - 08/27/18 05:23 Serum or plasma sodium measurement (moles/volume) 140 mmol/L 135-145 Serum or plasma potassium measurement (moles/volume) 3.0 mmol/L 3.6-5.0 Serum or plasma chloride measurement (moles/volume) 106 mmol/L 98-107 Carbon dioxide 21 mmol/L 21-32 Serum or plasma anion gap determination (moles/volume) 13 mmol/L 5-14 Serum or plasma urea nitrogen measurement (mass/volume) 11 mg/dL 7-18 Serum or plasma creatinine measurement (mass/volume) 0.61 mg/dL 0.60-1.30 Serum or plasma urea nitrogen/creatinine mass ratio 18 NRG Serum or plasma creatinine measurement with calculation of estimated glomerular filtration rate > NRG Serum or plasma glucose measurement (mass/volume) 94 mg/dL 70-105 Serum or plasma calcium measurement (mass/volume) 8.5 mg/dL 8.5-10.1 Serum or plasma total bilirubin measurement (mass/volume) 0.4 mg/dL 0.1-1.0 Serum or plasma alkaline phosphatase measurement (enzymatic activity/volume) 36 U/L 40-136 Serum or plasma aspartate aminotransferase measurement (enzymatic activity/ volume) 17 U/L 5-34 Serum or plasma alanine aminotransferase measurement (enzymatic activity/volume ) 8 U/L 0-55 Serum or plasma protein measurement (mass/volume) 4.9 g/dL 6.4-8.2 Serum or plasma albumin measurement (mass/volume) 2.7 g/dL 3.2-4.5 CALCIUM CORRECTED 9.5 mg/dL 8.5-10.1 IRON TEST - 08/27/18 05:23 Serum or plasma iron measurement (mass/volume) 23 % 35- 180 Encounters ACCT No. Visit Date/Time Discharge Status Pt. Type Provider Facility Loc./Unit Complaint [id number] 08/09/2018 13:09:55 08/09/2018 23:59:59 CLS Outpatient [id number] 08/23/2018 15:10:00 08/28/2018 13:30:00 DIS Inpatient HANG URRUTIA MD [facility] 4TH L HIP FRACTURE [id number] 08/14/2018 15:23:00 08/14/2018 23:59:59 CLS Outpatient KAYCEE MAIN [facility] SDC PANCREATITIS [id number] 09/09/2018 14:58:00 ACT Emergency CAROLINA NOLASCO, CAMERON Xie [facility] ER CP
--- NOTE | 2018-09-09 15:13 | ED Chest Pain ---
General Stated Complaint: CP Source: patient, EMS, snf records Exam Limitations: clinical condition History of Present Illness Date Seen by Provider: September 09, 2018 Time Seen by Provider: 14:50 Initial Comments Patient presents to ER by EMS from via [facility] with chief complaint of just prior to arrival she began to experience some chest pain in the middle of her chest substernal nonradiating. Reproduced by direct palpation. Her pain is sharp, 11 out of 10 and she was given aspirin and nitroglycerin en route by EMS and they brought her pain down to a 10 out of 10. She's having some mild nausea but no vomiting. No fevers or chills. Vital signs unremarkable per EMS. She denies a history of coronary artery disease. She says she's having some mild shortness of breath. Does not wear oxygen at baseline. No wheezing or cough recently. Allergies and Home Medications Allergies Coded Allergies: Sulfa (Sulfonamide Antibiotics) (Unverified Allergy, Unknown, 08/23/18) codeine (Verified Adverse Reaction, Mild, confusion, 08/23/18) okay with dr. urrutia for hydrocodone Home Medications Acetaminophen 500 Mg Tablet, 1,000 MG PO Q4H PRN for PAIN-MILD, (Reported) TAKES 2 (500MG) TABLETS Aspirin 81 Mg Tablet., 81 MG PO DAILY, (Reported) Cholecalciferol (Vitamin D3) 5,000 Unit Capsule, 5,000 UNIT PO DAILY, (Reported) Colestipol HCl 1 Gm Tablet, 1 GM PO BID, (Reported) Enoxaparin Sodium 30 Mg/0.3 Ml Syringe, 30 MG SC BID@08,20 Prescribed by: HANG URRUTIA on 08/28/18 0920 Hydrocodone Bit/Acetaminophen 1 Tab Tab, 1 TAB PO Q6HR PRN for PAIN-MODERATE Prescribed by: HANG URRUTIA on 08/28/18 0914 Lipase/Protease/Amylase 1 Each Capsule., 2 CAP PO TID, (Reported) Lipase/Protease/Amylase 1 Each Capsule.dr, 1 CAP PO UD PRN for CHRONIC PANCREATITIS, (Reported) Metronidazole 500 Mg Tablet, 500 MG PO TID Prescribed by: HANG URRUTIA on 08/28/18 0914 Nebivolol HCl 20 Mg Tablet, 20 MG PO DAILY, (Reported) Nifedipine 90 Mg Tab.er.24, 90 MG PO HS, (Reported) Pantoprazole Sodium 40 Mg Tablet.dr, 40 MG PO DAILY, (Reported) Promethazine HCl 12.5 Mg Tablet, 12.5 MG PO Q4H PRN for NAUSEA/VOMITING-2ND LINE , (Reported) Sertraline HCl 100 Mg Tablet, 200 MG PO DAILY, (Reported) TAKES 2 (100MG) TABLETS Spironolactone 25 Mg Tablet, 12.5 MG PO DAILY, (Reported) TAKES 1/2 (25MG) TABLET Tramadol HCl 50 Mg Tablet, 50 MG PO Q6H PRN for PAIN-MILD Prescribed by: HANG URRUTIA on 08/28/18 0914 Patient Home Medication List Home Medication List Reviewed: Yes Review of Systems Review of Systems Constitutional: No chills, No diaphoresis EENTM: No Blurred Vision, No Double Vision Respiratory: Denies Cough; Shortness of Air Cardiovascular: See HPI, Chest Pain; Denies Edema, Denies Palpitations, Denies Syncope Gastrointestinal: See HPI; Denies Abdomen Distended, Denies Abdominal Pain, Denies Constipated, Denies Diarrhea Genitourinary: Denies Burning, Denies Discharge, Denies Drainage Musculoskeletal: No back pain, No joint swelling Skin: No pruritus, No rash Past Bpuuyig-Huyuhd-Iiwqer Hx Patient Social History Alcohol Use: Denies Use Recreational Drug Use: No Smoking Status: Never a Smoker 2nd Hand Smoke Exposure: No Recent Hopitalizations: No Immunizations Up To Date Date of Pneumonia Vaccine: Jan 30, 2015 Seasonal Allergies Seasonal Allergies: No Past Medical History Surgeries: Yes (MULTIPLE FRACTURES) Respiratory: No Cardiac: Yes Hypertension Neurological: Yes Dementia Genitourinary: No Gastrointestinal: Yes (DIVERTICULITIS) Pancreatitis, Gall Bladder Disease Musculoskeletal: No Endocrine: No HEENT: No Loss of Vision: Denies Hearing Impairment: Denies Cancer: No Psychosocial: Yes Anxiety Integumentary: Yes (SHINGLES) Blood Disorders: No Family Medical History PATIENT CONFUSED Heart Disease Physical Exam Vital Signs Vital Signs - First Documented 09/09/18 14:55 Temp 99.0 Pulse 116 Resp 20 B/P (MAP) 145/76 (99) Pulse Ox 92 O2 Delivery Nasal Cannula O2 Flow Rate 2.0 Capillary Refill : Height, Weight, BMI Height: 5'5.00" Weight: 164lbs. 3.0oz. 74.298653tw; 26.0 BMI Method:Stated General Appearance: Chronically ill, Mild Distress HEENT: PERRL/EOMI, TMs Normal, Normal ENT Inspection, Pharynx Normal; No Moist Mucous Membranes Neck: Full Range of Motion, Normal Inspection, Non Tender, Supple Respiratory: No Chest Non Tender; Lungs Clear, Normal Breath Sounds, No Accessory Muscle Use, No Respiratory Distress Cardiovascular: Regular Rate, Rhythm, No Edema, Normal Peripheral Pulses Gastrointestinal: Normal Bowel Sounds, Soft, Tenderness Extremity: Normal Capillary Refill, No Pedal Edema Neurologic/Psychiatric: Alert, Oriented x3 Skin: Normal Color, Warm/Dry Progress/Results/Core Measures Results/Orders Lab Results Laboratory Tests Test 09/09/18 15:05 Range/Units White Blood Count 15.2 H 4.3-11.0 10^3/uL Red Blood Count 3.20 L 4.35-5.85 10^6/uL Hemoglobin 10.3 L 11.5-16.0 G/DL Hematocrit 32 L 35-52 % Mean Corpuscular Volume 99 80-99 FL Mean Corpuscular Hemoglobin 32 25-34 PG Mean Corpuscular Hemoglobin Concent 33 32-36 G/DL Red Cell Distribution Width 17.9 H 10.0-14.5 % Platelet Count 619 H 130-400 10^3/uL Mean Platelet Volume 9.4 7.4-10.4 FL Neutrophils (%) (Auto) 87 H 42-75 % Lymphocytes (%) (Auto) 6 L 12-44 % Monocytes (%) (Auto) 7 0-12 % Eosinophils (%) (Auto) 0 0-10 % Basophils (%) (Auto) 0 0-10 % Neutrophils # (Auto) 13.2 H 1.8-7.8 X 10^3 Lymphocytes # (Auto) 0.9 L 1.0-4.0 X 10^3 Monocytes # (Auto) 1.1 H 0.0-1.0 X 10^3 Eosinophils # (Auto) 0.0 0.0-0.3 10^3/uL Basophils # (Auto) 0.0 0.0-0.1 10^3/uL Neutrophils % (Manual) 89 % Lymphocytes % (Manual) 3 % Monocytes % (Manual) 5 % Eosinophils % (Manual) 1 % Basophils % (Manual) 0 % Band Neutrophils 2 % Polychromasia SLIGHT Hypochromasia SLIGHT Poikilocytosis SLIGHT Anisocytosis MODERATE Microcytosis SLIGHT Macrocytosis MODERATE Prothrombin Time 14.6 12.2-14.7 SEC INR Comment 1.1 0.8-1.4 Activated Partial Thromboplast Time 26 24-35 SEC D-Dimer 6.03 H 0.00-0.49 UG/ML Sodium Level 136 135-145 MMOL/L Potassium Level 3.5 L 3.6-5.0 MMOL/L Chloride Level 103 98-107 MMOL/L Carbon Dioxide Level 21 21-32 MMOL/L Anion Gap 12 5-14 MMOL/L Blood Urea Nitrogen 14 7-18 MG/DL Creatinine 0.75 0.60-1.30 MG/DL Estimat Glomerular Filtration Rate > 60 BUN/Creatinine Ratio 19 Glucose Level 109 H 70-105 MG/DL Calcium Level 8.5 8.5-10.1 MG/DL Corrected Calcium 9.3 8.5-10.1 MG/DL Magnesium Level 1.5 L 1.8-2.4 MG/DL Total Bilirubin 0.5 0.1-1.0 MG/DL Aspartate Amino Transf (AST/SGOT) 20 5-34 U/L Alanine Aminotransferase (ALT/SGPT) 11 0-55 U/L Alkaline Phosphatase 101 40-136 U/L Myoglobin 35.2 10.0-92.0 NG/ML Troponin I < 0.028 <0.028 NG/ML B-Type Natriuretic Peptide 379.0 H <100.0 PG/ML Total Protein 5.6 L 6.4-8.2 GM/DL Albumin 3.0 L 3.2-4.5 GM/DL Lipase 27 8-78 U/L My Orders Orders - CAROLINACAMERON Cbc With Automated Diff (09/09/18 15:03) Magnesium (09/09/18 15:03) Chest 1 View, Ap/Pa Only (09/09/18 15:03) Ekg Tracing (09/09/18 15:03) Cardiac Profile 1 (09/09/18 15:03) Comprehensive Metabolic Panel (09/09/18 15:03) Myoglobin Serum (09/09/18 15:03) Protime With Inr (09/09/18 15:03) Partial Thromboplastin Time (09/09/18 15:03) O2 (09/09/18 15:03) Monitor-Rhythm Ecg Trace Only (09/09/18 15:03) Lipid Panel (09/10/18 06:00) Ed Iv/Invasive Line Start (09/09/18 15:03) Lipase (09/09/18 15:03) BNP (09/09/18 15:03) Fibrin Degradation Products (09/09/18 15:03) Nitroglycerin 0.4 Mg Btl 25's (Nitrostat (09/09/18 15:15) Ondansetron Injection (Zofran Injectio (09/09/18 15:15) Ondansetron Injection (Zofran Injectio (09/09/18 15:04) Manual Differential (09/09/18 15:05) Lidocaine 2% Viscous 15 Ml (Xylocaine Vi (09/09/18 16:00) Famotidine Tablet (Pepcid Tablet) (09/09/18 15:58) Antacid Suspension (Mylanta Suspension (09/09/18 16:00) Ct Angio Chest W (09/09/18 15:58) Iohexol Injection (Omnipaque 350 Mg/Ml 1 (09/09/18 16:30) Received Contrast (Hold Metformin- Contr (09/09/18 16:30) Sodium Chloride Flush (Catheter Flush Sy (09/09/18 16:30) Enoxaparin Injection (Lovenox Injection) (09/09/18 17:45) Ua Culture If Indicated (09/09/18 17:46) Straight Cath For Spec.-Adult (09/09/18 17:46) Medications Given in ED Current Medications Medications Dose Ordered Sig/Los Route Start Time Stop Time Status Last Admin Dose Admin Al Hydrox/Mg Hydrox/Simethicone 30 ml ONCE ONCE PO 09/09/18 16:00 09/09/18 16:01 DC 09/09/18 16:13 30 ML Iohexol 150 ml ONCE ONCE IV 09/09/18 16:30 09/09/18 16:31 DC 09/09/18 16:50 100 ML Lidocaine HCl 15 ml ONCE ONCE PO 09/09/18 16:00 09/09/18 16:01 DC 09/09/18 16:13 15 ML Nitroglycerin 0.4 mg UD PRN SL 09/09/18 15:15 09/09/18 15:12 0.4 MG Ondansetron HCl 4 mg ONCE ONCE IVP 09/09/18 15:15 09/09/18 15:16 DC 09/09/18 15:12 4 MG Sodium Chloride 10 ml NEEDED PRN IV 09/09/18 16:30 09/09/18 16:50 10 ML Vital Signs/I&O 09/09/18 09/09/18 09/09/18 14:55 14:55 14:55 Temp 99.0 Pulse 116 Resp 20 B/P (MAP) 145/76 (99) Pulse Ox 92 93 O2 Delivery Nasal Cannula Nasal Cannula Room Air O2 Flow Rate 2.0 2.00 Progress Progress Note #1: Time: 15:14 Progress Note Patient's. Having some chest pain with a history of coronary disease so we will do a cardiac workup. Initial EKG is unremarkable. We will start with some more nitroglycerin she said that did improve her pain. Blood pressure is okay at the moment 144/89. Oxygen saturations about 92% on room air so we'll give her 2 L nasal cannula which brought her up to 96%. Cardiac versus pulmonary versus PE versus costochondritis? ED ACS 12 points low risk. If the patient also has: (1) EKG without new ischemic changes and (2) negative initial and 2-hour troponins, then this patient is safe for discharge to early outpatient follow-up investigation (or proceed to earlier inpatient testing). If EKG with ischemic changes or positive troponin, they are not low risk and require normal risk stratification. Progress Note #2: Time: 15:56 Progress Note The patient's pain was modestly improved on the troponin but she still having significant pain so we'll give her a GI cocktail. Because of her hip fracture recently we'll go ahead and do a CT angiogram to rule out a pulmonary embolism. Initial ECG Impression Date: September 09, 2018 Initial ECG Impression Time: 14:59 Initial ECG Rate: 84 Initial ECG Rhythm: Normal Sinus Initial ECG Intervals: Normal Initial ECG Impression: Normal, Nonspecific Changes Initial ECG Comparisson: No Previous ECG Available Comment PACs. Normal sinus rhythm without ST elevation or depression. Diagnostic Imaging Diagonstic Imaging: Xray Plain Films/CT/US/NM/MRI: chest (1v) Comments [facility] [place], [place] NAME: PINKY BRYANT [facility] REC#: [id number] PT STATUS: REG ER : 1935 PHYSICIAN: CAMERON FIGUEROA MD ADMIT DATE: 09/09/18/ER Draft Date of Exam:09/09/18 CHEST 1 VIEW, AP/PA ONLY INDICATION: Chest pain. COMPARISON: 08/23/2018. FINDINGS: Visualized lungs are clear. Posterior lower lobes are poorly evaluated by portable radiography. Stable mild cardiomegaly. No pleural effusion or pneumothorax. Mediastinal contours are normal. IMPRESSION: No acute process by portable radiography. Dictated on workstation # [id number] Dict: 09/09/18 1536 Trans: 09/09/18 1542 [id number] Interpreted by: TOMASA BOOTH MD Electronically signed by: Reviewed: Reviewed by Me Diagonstic Imaging: CT (angio) Plain Films/CT/US/NM/MRI: chest Comments [facility] [place] [place] NAME: PINKY BRYANT [facility] REC#: [id number] PT STATUS: REG ER : 1935 PHYSICIAN: CAMERON FIGUEROA MD ADMIT DATE: 09/09/18/ER Draft Date of Exam:09/09/18 CT ANGIO CHEST W INDICATION: Chest pain and elevated d-dimer. CTA chest obtained with IV contrast bolus and axial slices and MIP reconstructions. FINDINGS: There is some motion artifact. Pulmonary parenchymal vessels show no filling defects to suggest pulmonary embolic disease. There is no evidence of aortic dissection or aneurysm. There is a prominent pericardial effusion. There is minimal trace of pleural fluid on both sides with some bibasilar atelectasis. Lung parenchymal windows demonstrate motion artifact but no overt consolidation. There are dependent atelectatic changes in the lung bases. Visualized portions of the upper abdomen demonstrate small cysts in each kidney. There is pneumobilia, question prior surgical history. We have no previous abdominal CTs for comparison. IMPRESSION: There is no evidence of pulmonary emboli or aortic dissection. There is a prominent pericardial effusion. There is bibasilar atelectasis. There are cysts in each kidney. There appears to be pneumobilia, we have no previous abdominal CTs for comparison. Dictated on workstation # [id number] Dict: 09/09/18 1711 Trans: 09/09/18 1721 [id number] Interpreted by: ARNEL MARTIN MD Electronically signed by: Reviewed: Reviewed by Me Departure Communication (Admissions) Time/Spoke to Admitting Phy: 17:42 Dr. Morin agrees to observe the patient for chest pain. We'll get a urinalysis to see if explain the elevated leukocytosis. He would like cardiology and pulmonology consulted. Time/Spoke to Consulting Phy: 17:40 Discussed case lab imaging EKG with Dr. Pedraza and he agrees with observation. Discussed case lab imaging findings with Dr. Bird agrees to round on the patient. Impression Primary Impression: Chest pain Qualified Codes: R07.9 - Chest pain, unspecified Disposition: ADMITTED INPATIENT Condition: Stable Admissions Decision to Admit Reason: Admit from ER (General) Decision to Admit/Date: September 09, 2018 Time/Decision to Admit Time: 17:41 Departure-Patient Inst. Referrals: HANG URRUTIA MD (PCP/Family) Primary Care Physician CAMERON FIGUEROA September 09, 2018 15:13
[2018-09-09] MEDS ORDERED: NITROGLYCERIN 0.4 MG SL TABS BTL 25'S SL PRN ×2 (15:15→20:30)
[2018-09-09] MEDS ORDERED: ONDANSETRON 4 MG/2 ML (SDV) Z0FRAN IVP ONE (15:15)
[2018-09-09 15:21] LABS: BASOPHILS % (AUTO) 0 % (0-10); EOSINOPHILS % (AUTO) 0 % (0-10); HEMATOCRIT 32 % (35-52); HEMOGLOBIN 10.3 G/DL (11.5-16.0); LYMPHOCYTES # (AUTO) 0.9 X 10^3 (1.0-4.0); LYMPHOCYTES % (AUTO) 6 % (12-44); MEAN CORPUSCULAR HEMOGLOBIN 32 PG (25-34); MEAN CORPUSCULAR HGB CONC 33 G/DL (32-36); MEAN CORPUSCULAR VOLUME 99 FL (80-99); MEAN PLATELET VOLUME 9.4 FL (7.4-10.4); MONOCYTES # (AUTO) 1.1 X 10^3 (0.0-1.0); MONOCYTES % (AUTO) 7 % (0-12); NEUTROPHILS # (AUTO) 13.2 X 10^3 (1.8-7.8); NEUTROPHILS % (AUTO) 87 % (42-75); PLATELET COUNT 619 10^3/uL (130-400); RED CELL DISTRIBUTION WIDTH 17.9 % (10.0-14.5); WHITE BLOOD COUNT 15.2 10^3/uL (4.3-11.0)
[2018-09-09 15:24] LABS: INR 1.1 (0.8-1.4); PROTHROMBIN TIME PATIENT 14.6 SEC (12.2-14.7)
[2018-09-09 15:30] LABS: ANISOCYTOSIS MODERATE; BAND NEUTROPHILS 2 %; BASOPHILS % (MANUAL) 0 %; EOSINOPHILS % (MANUAL) 1 %; HYPOCHROMASIA SLIGHT; LYMPHOCYTES % (MANUAL) 3 %; MICROCYTOSIS SLIGHT; MONOCYTES % (MANUAL) 5 %; NEUTROPHILS % (MANUAL) 89 %; POIKILOCYTOSIS SLIGHT; POLYCHROMASIA SLIGHT
--- NOTE | 2018-09-09 15:43 | Diagnostic Imaging Report ---
INDICATION: Chest pain. COMPARISON: 08/23/2018. FINDINGS: Visualized lungs are clear. Posterior lower lobes are poorly evaluated by portable radiography. Stable mild cardiomegaly. No pleural effusion or pneumothorax. Mediastinal contours are normal. IMPRESSION: No acute process by portable radiography. Dictated by: Dictated on workstation # [id number]
[2018-09-09 15:44] LABS: ALANINE AMINOTRANSFERASE 11 U/L (0-55); ALKALINE PHOSPHATASE 101 U/L (40-136); BILIRUBIN,TOTAL 0.5 MG/DL (0.1-1.0); BUN/CREATININE RATIO 19; CALCIUM 8.5 MG/DL (8.5-10.1); CARBON DIOXIDE 21 MMOL/L (21-32); CHLORIDE 103 MMOL/L (98-107); CREATININE SERUM 0.75 MG/DL (0.60-1.30); GFR ESTIMATED > 60; GLUCOSE 109 MG/DL (70-105); LIPASE 27 U/L (8-78); MAGNESIUM 1.5 MG/DL (1.8-2.4); POTASSIUM 3.5 MMOL/L (3.6-5.0); SODIUM 136 MMOL/L (135-145); TOTAL PROTEIN 5.6 GM/DL (6.4-8.2)
[2018-09-09] MEDS ORDERED: FAMOTIDINE 20 MG (PEPCID) TABLET PO STA (15:58)
[2018-09-09] MEDS ORDERED: LIDOCAINE 2% VISCOUS 15 ML UDC PO ONE (16:00)
[2018-09-09] MEDS ORDERED: ANTACID SUSP 30 ML UDC (MYLANTA) PO ONE (16:00)
[2018-09-09] MEDS ORDERED: IOHEXOL 350 MG/ML 150 ML (OMNIPAQUE 350) VIAL IV ONE (16:30)
[2018-09-09] MEDS ORDERED: CATHETER FLUSH 10 ML SYR IV PRN ×2 (16:30→20:45)
[2018-09-09] MEDS ORDERED: HOLD METFORMIN - RECEIVED CONTRAST 20 ML VIAL IV SCH (16:30)
--- NOTE | 2018-09-09 17:22 | Diagnostic Imaging Report ---
INDICATION: Chest pain and elevated d-dimer. CTA chest obtained with IV contrast bolus and axial slices and MIP reconstructions. FINDINGS: There is some motion artifact. Pulmonary parenchymal vessels show no filling defects to suggest pulmonary embolic disease. There is no evidence of aortic dissection or aneurysm. There is a prominent pericardial effusion. There is minimal trace of pleural fluid on both sides with some bibasilar atelectasis. Lung parenchymal windows demonstrate motion artifact but no overt consolidation. There are dependent atelectatic changes in the lung bases. Visualized portions of the upper abdomen demonstrate small cysts in each kidney. There is pneumobilia, question prior surgical history. We have no previous abdominal CTs for comparison. IMPRESSION: There is no evidence of pulmonary emboli or aortic dissection. There is a prominent pericardial effusion. There is bibasilar atelectasis. There are cysts in each kidney. There appears to be pneumobilia, we have no previous abdominal CTs for comparison. Dictated by: Dictated on workstation # [id number]
[2018-09-09] MEDS ORDERED: ENOXAPARIN 80 MG/0.8 ML (LOVENOX) SYR SC ONE (17:45)
[2018-09-09 18:03] LABS: BILIRUBIN,URINE NEGATIVE (NEGATIVE); CLARITY,URINE VERY CLOUDY; COLOR,URINE YELLOW; GLUCOSE, URINE (UA) NEGATIVE (NEGATIVE); KETONES,URINE NEGATIVE (NEGATIVE); LEUKOCYTE ESTERASE ,URINE 3+ (NEGATIVE); NITRITE,URINE NEGATIVE (NEGATIVE); PH,URINE 6 (5-9); PROTEIN,URINE 1+ (NEGATIVE); UROBILINOGEN,URINE NORMAL (NORMAL)
--- OUTSIDE RECORDS SUMMARY | 2018-09-09 18:07 | XMS REPORT | Continuity of Care Document ---
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 K85.90 ACUTE PANCREATITIS WITHOUT NECROSIS [...] Procedures Code Description Performed By Performed On [id number] REPOSITION LEFT UPPER FEMUR WITH INTRAME 08/24/2018 [...] iron measurement (mass/volume) 23 % 35- 180 Complete blood count (CBC) with automated white blood cell (WBC) differential - 09/09/18 15:05 Blood leukocytes automated count (number/volume) 15.2 10*3/uL 4.3-11.0 Blood erythrocytes automated count (number/volume) 3.20 10*6/uL 4.35-5.85 Venous blood hemoglobin measurement (mass/volume) 10.3 g/dL 11.5-16.0 Blood hematocrit (volume fraction) 32 % 35-52 Automated erythrocyte mean corpuscular volume 99 [foz_us] 80-99 Automated erythrocyte mean corpuscular hemoglobin (mass per erythrocyte) 32 pg 25-34 Automated erythrocyte mean corpuscular hemoglobin concentration measurement ( mass/volume) 33 g/dL 32-36 Automated erythrocyte distribution width ratio 17.9 % 10.0-14.5 Automated blood platelet count (count/volume) 619 10*3/uL 130-400 Automated blood platelet mean volume measurement 9.4 [foz_us] 7.4-10.4 Automated blood neutrophils/100 leukocytes 87 % 42-75 Automated blood lymphocytes/100 leukocytes 6 % 12-44 Blood monocytes/100 leukocytes 7 % 0-12 Automated blood eosinophils/100 leukocytes 0 % 0-10 Automated blood basophils/100 leukocytes 0 % 0-10 Blood neutrophils automated count (number/volume) 13.2 10*3 1.8-7.8 Blood lymphocytes automated count (number/volume) 0.9 10*3 1.0-4.0 Blood monocytes automated count (number/volume) 1.1 10*3 0.0-1.0 Automated eosinophil count 0.0 10*3/uL 0.0-0.3 Automated blood basophil count (count/volume) 0.0 10*3/uL 0.0-0.1 PT panel in platelet poor plasma by coagulation assay - 09/09/18 15:05 Prothrombin time (PT) in platelet poor plasma by coagulation assay 14.6 s 12.2-14.7 INR in platelet poor plasma or blood by coagulation assay 1.1 0.8-1.4 Activated partial thromboplastin time (aPTT) in platelet poor plasma bycoagulation assay - 09/09/18 15:05 Activated partial thromboplastin time (aPTT) in platelet poor plasma bycoagulation assay 26 s 24-35 Blood manual differential performed detection - 09/09/18 15:05 Blood monocytes/100 leukocytes 5 % NRG Manual blood segmented neutrophils/100 leukocytes 89 % NRG Blood band neutrophils/100 leukocytes 2 % NRG Manual blood lymphocytes/100 leukocytes 3 % NRG Manual eosinophils/100 leukocytes in nose 1 % NRG Manual blood basophils/100 leukocytes 0 % NRG Blood polychromasia detection by light microscopy SLIGHT NRG Blood anisocytosis detection by light microscopy MODERATE NRG Blood macrocytes detection by light microscopy MODERATE NRG Blood poikilocytosis detection by light microscopy SLIGHT NRG Blood hypochromia detection by light microscopy SLIGHT NRG Blood microcytes detection by light microscopy SLIGHT NRG Fibrin D-dimer FEU measurement in platelet poor plasma (mass/volume) - 15:05 Fibrin D-dimer FEU measurement in platelet poor plasma (mass/volume) 6.03 ug/mL 0.00-0.49 Comprehensive metabolic panel - 09/09/18 15:05 Serum or plasma sodium measurement (moles/volume) 136 mmol/L 135-145 Serum or plasma potassium measurement (moles/volume) 3.5 mmol/L 3.6-5.0 Serum or plasma chloride measurement (moles/volume) 103 mmol/L 98-107 Carbon dioxide 21 mmol/L 21-32 Serum or plasma anion gap determination (moles/volume) 12 mmol/L 5-14 Serum or plasma urea nitrogen measurement (mass/volume) 14 mg/dL 7-18 Serum or plasma creatinine measurement (mass/volume) 0.75 mg/dL 0.60-1.30 Serum or plasma urea nitrogen/creatinine mass ratio 19 NRG Serum or plasma creatinine measurement with calculation of estimated glomerular filtration rate > NRG Serum or plasma glucose measurement (mass/volume) 109 mg/dL 70-105 Serum or plasma calcium measurement (mass/volume) 8.5 mg/dL 8.5-10.1 Serum or plasma total bilirubin measurement (mass/volume) 0.5 mg/dL 0.1-1.0 Serum or plasma alkaline phosphatase measurement (enzymatic activity/volume) 101 U/L 40-136 Serum or plasma aspartate aminotransferase measurement (enzymatic activity/ volume) 20 U/L 5-34 Serum or plasma alanine aminotransferase measurement (enzymatic activity/volume ) 11 U/L 0-55 Serum or plasma protein measurement (mass/volume) 5.6 g/dL 6.4-8.2 Serum or plasma albumin measurement (mass/volume) 3.0 g/dL 3.2-4.5 CALCIUM CORRECTED 9.3 mg/dL 8.5-10.1 Magnesium - 09/09/18 15:05 Magnesium 1.5 mg/dL 1.8-2.4 Serum or plasma troponin i.cardiac measurement (mass/volume) - 09/09/18 15:05 Serum or plasma troponin i.cardiac measurement (mass/volume) < ng/ mL <0.028 Myoglobin, serum - 09/09/18 15:05 Myoglobin, serum 35.2 ng/mL 10.0-92.0 Lipase - 09/09/18 15:05 Lipase 27 U/L 8-78 Serum or plasma lithium measurement (moles/volume) - 09/09/18 15:05 BNP level 379.0 pg/mL <100.0 Encounters ACCT No. Visit Date/Time Discharge Status Pt. Type Provider Facility Loc./Unit Complaint [id number] 08/09/2018 13:09:55 08/09/2018 23:59:59 CLS Outpatient [id number] 08/23/2018 15:10:00 08/28/2018 13:30:00 DIS Inpatient HANG URRUTIA MD [facility] 4TH L HIP FRACTURE [id number] 08/14/2018 15:23:00 08/14/2018 23:59:59 CLS Outpatient [facility] SDC PANCREATITIS [id number] 09/09/2018 17:50:00 ACT Inpatient RG ALLAN DO [facility] ICU CHEST PAIN, R/O ACS
[2018-09-09 18:08] LABS: BACTERIA,URINE MODERATE /HPF; RBC,URINE RARE /HPF; SQUAMOUS EPITHELIAL CELL,UR RARE /HPF; WBC,URINE 50-100 /HPF
[2018-09-09] MEDS ORDERED: cefTRIAXone FOR IV USE 1,000 MG in WATER (STERILE) FOR INJECTION 10 ML IV ONE (18:30)
--- NOTE | 2018-09-09 18:45 | NUR ---
PINKY BRYANT admitted to room CU12-1, with an admitting diagnosis of Chest Pain, on 09/09/18 from AM via cart, accompanied by staff.PINKY BRYANT introduced to surroundings, call light, bed controls, phone, TV, temperature control, lights, meal times, smoking policy, visitor policy, side rail policy, bathrooms and showers. Patient Rights given to patient in the handbook. PINKY BRAYNT verbalizes understanding that [facility] is not responsible for the loss or damage to any personal effects or valuables that are kept in the patients posession during their hospitalization. The following Patient Care Plans were discussed with the pt: Discharge Planning. PINKY BRYANT verbalizes understanding of Interdisciplinary Patient Education. Patient and/or family were informed about the Rapid Response Team and its purpose.
--- NOTE | 2018-09-09 19:16 | Pulmonary Consultation ---
History of Present Illness History of Present Illness Date of Consultation 09/09/18 19:11 Time Seen by Provider: 19:11 Date of Admission History of Present Illness 83yo with hx of CAD presented to ED via EMS from [facility] secondary to worsening mid sternal nonradiating CP and reproducible with palpation. Pain did slightly improve with nitro via EMS. Pt also complains of SOB, and mild nausea. No prior episodes like this. I am consulted for pulmonary/CC management. Allergies and Home Medications Allergies Coded Allergies: Sulfa (Sulfonamide Antibiotics) (Unverified Allergy, Unknown, 08/23/18) codeine (Verified Adverse Reaction, Mild, confusion, 08/23/18) okay with dr. louis for hydrocodone Home Medications Aspirin 325 Mg Tablet.dr, 325 MG PO DAILY, (Reported) AFTER 30 DAYS OF 325MG DOSE (START DATE 09-09-18) SWITCH TO ASPIRIN 81MG DAILY Cholecalciferol (Vitamin D3) 5,000 Unit Capsule, 5,000 UNIT PO DAILY, (Reported) Colestipol HCl 1 Gm Tablet, 1 GM PO BID, (Reported) Hydrocodone/Acetaminophen 1 Each Tablet, 1 TAB PO Q6H PRN for PAIN-MODERATE, ( Reported) Lipase/Protease/Amylase 1 Each Capsule.dr, 2 CAP PO TID, (Reported) Lipase/Protease/Amylase 1 Each Capsule.dr, 1 CAP PO UD PRN for CHRONIC PANCREATITIS, (Reported) Nebivolol HCl 20 Mg Tablet, 20 MG PO DAILY, (Reported) Nifedipine 90 Mg Tab.er.24, 90 MG PO HS, (Reported) Ondansetron HCl 4 Mg Tab, 4 MG PO TID PRN for NAUSEA/VOMITING-1ST LINE, ( Reported) Ondansetron HCl 4 Mg Tab, 4 MG PO TID PRN for NAUSEA/VOMITING-1ST LINE, ( Reported) Pantoprazole Sodium 40 Mg Tablet.dr, 40 MG PO DAILY, (Reported) Sertraline HCl 100 Mg Tablet, 200 MG PO DAILY, (Reported) TAKES 2 (100MG) TABLETS Spironolactone 25 Mg Tablet, 12.5 MG PO DAILY, (Reported) HOLD AND NOTIFY PCP IF SBP <100 OR DBP<60 TAKES 1/2 (25MG) TABLET Tramadol HCl 50 Mg Tablet, 50 MG PO TID PRN for PAIN-MODERATE, (Reported) Past Fpfrjar-Qsfnwl-Wtahdy Hx Patient Social History Alcohol Use: Denies Use Recreational Drug Use: No Smoking Status: Never a Smoker 2nd Hand Smoke Exposure: No Recent Foreign Travel: No Contact w/Someone Who Travel: No Recent Infectious Disease Expo: No Recent Hopitalizations: No Immunizations Up To Date Tetanus Booster (TDap): Unknown Date of Pneumonia Vaccine: Jan 30, 2015 Seasonal Allergies Seasonal Allergies: No Past Medical History Surgeries: Yes (MULTIPLE FRACTURES) Respiratory: No Cardiac: Yes Hypertension Neurological: Yes Dementia Genitourinary: No Gastrointestinal: Yes (DIVERTICULITIS) Pancreatitis, Gall Bladder Disease Musculoskeletal: No Endocrine: No HEENT: No Loss of Vision: Denies Hearing Impairment: Denies Cancer: No Psychosocial: Yes Anxiety Integumentary: Yes (SHINGLES) Blood Disorders: No Family Medical History PATIENT CONFUSED Heart Disease Review of Systems Time Seen by Provider: 06:29 Constitutional: Weakness, Malaise Eyes: No: Pain, Vision change, Conjunctivae inflammation, Eyelid inflammation, Other, Redness ENT: Nose congestion Respiratory: Cough, Dry, Shortness of breath, SOB with excertion; No: Wheezing Cardiovascular: Chest Pain, Palpitations, Paroxysmal Noc. Dyspnea Gastrointestinal: Nausea, Constipation Genitourinary: Dysuria Neurological: Weakness, Confusion Sepsis Event Evaluation Height, Weight, BMI Height: 5'7.00" Weight: 150lbs. 3.0oz. 68.567414br; 26.0 BMI Method:Stated Exam Exam Vital Signs Date Time Temp Pulse Resp B/P (MAP) Pulse Ox O2 Delivery O2 Flow Rate FiO2 09/09/18 19:02 99.7 09/09/18 18:16 85 18 143/64 (90) 96 Room Air 09/09/18 14:55 99.0 116 20 145/76 (99) 93 Room Air 09/09/18 14:55 92 Nasal Cannula 2.00 09/09/18 14:55 Nasal Cannula 2.0 Height & Weight Height: 5'7.00" Weight: 150lbs. 3.0oz. 68.170204dl; 26.0 BMI Method:Stated General Appearance: Chronically ill, Mild Distress HEENT: PERRL/EOMI, TMs Normal, Normal ENT Inspection, Pharynx Normal; No Moist Mucous Membranes Neck: Full Range of Motion, Normal Inspection, Non Tender, Supple Respiratory: No Chest Non Tender; Lungs Clear, Normal Breath Sounds, No Accessory Muscle Use, No Respiratory Distress Cardiovascular: Regular Rate, Rhythm, No Edema, Normal Peripheral Pulses Capillary Refill: Less Than 3 Seconds Extremity: Normal Capillary Refill, No Pedal Edema Neurologic/Psychiatric: Alert, Oriented x3 Skin: Normal Color, Warm/Dry Results Lab Laboratory Tests 09/09/18 15:05 Assessment/Plan Assessment/Plan UTI -Guevara culture -Check [place] -Start Zosyn CP with pericardial effusion per CTscan -Cardiology is consulted -troponins -monitor -EKG Pneumobilia per CT -Check abdominal US JAMESON ALEMAN DO September 09, 2018 19:16
[2018-09-09] MEDS ORDERED: morphine INJ 4 MG/ML 1 ML (VIAL/SYRINGE) ONE (19:40)
[2018-09-09] MEDS ORDERED: RT-ALBUTEROL/IPRATROPIUM 3 ML (DUONEB) VIAL INH PRN (19:45)
[2018-09-09] MEDS ORDERED: RT-ALBUTEROL/IPRATROPIUM 3 ML (DUONEB) VIAL ONE (19:45)
[2018-09-09] MEDS ORDERED: NS IV 1000 ML 1,000 ML ONE (20:05)
[2018-09-09] MEDS: RT-ALBUTEROL/IPRATROPIUM 3 ML (DUONEB) VIAL INH SCH (20:25)
[2018-09-09] MEDS ORDERED: fentaNYL INJECTION 100 MCG/2 ML AMP IV PRN (20:30)
[2018-09-09] MEDS ORDERED: morphine INJ 4 MG/ML 1 ML (VIAL/SYRINGE) IV PRN (20:30)
[2018-09-09] MEDS ORDERED: ACETAMINOPHEN 500 MG TAB (TYLENOL) PO PRN (20:30)
[2018-09-09] MEDS ORDERED: ONDANSETRON 4 MG/2 ML (SDV) Z0FRAN IV PRN (20:30)
[2018-09-09] MEDS ORDERED: NS (IVPB) 100 ML ONE (20:49)
[2018-09-09] MEDS ORDERED: PIPERACILLIN/TAZO 4.5 GM VIAL (ZOSYN) IV ONE (20:49)
[2018-09-09] MEDS: NS IV 1000 ML 1,000 ML IV SCH (20:55)
[2018-09-09] MEDS: MAGNESIUM 1 GM/100 ML IVPB 100 ML IV SCH ×2 (20:55→22:30)
[2018-09-09] MEDS: PIPERACILLIN/TAZOBACTAM (BULK) 4.5 GM in NS (IVPB) 100 ML IV SCH (21:01)
[2018-09-09] MEDS: SERTRALINE 100 MG (ZOLOFT) TAB PO SCH (21:14)
[2018-09-09] MEDS: ATORVASTATIN 40 MG (LIPITOR) TABLET PO SCH (21:14)
[2018-09-09] MEDS: CATHETER FLUSH 10 ML SYR IV SCH (22:00)
[2018-09-09] MEDS: POTASSIUM CL 10MEQ/50ML IVPB 50 ML IV SCH (23:00)
[2018-09-10] VITALS (12 sets, daily range): BP systolic 96–159; BP diastolic 55–74
[2018-09-10] MEDS: POTASSIUM CL 10MEQ/50ML IVPB 50 ML IV SCH ×3 (01:00→04:35)
[2018-09-10] MEDS: RT-ALBUTEROL/IPRATROPIUM 3 ML (DUONEB) VIAL INH SCH ×4 (02:32→21:59)
[2018-09-10 03:50] LABS: BASOPHILS % (AUTO) 0 % (0-10); EOSINOPHILS % (AUTO) 0 % (0-10); HEMATOCRIT 31 % (35-52); HEMOGLOBIN 9.8 G/DL (11.5-16.0); LYMPHOCYTES # (AUTO) 0.9 X 10^3 (1.0-4.0); LYMPHOCYTES % (AUTO) 4 % (12-44); MEAN CORPUSCULAR HEMOGLOBIN 31 PG (25-34); MEAN CORPUSCULAR HGB CONC 31 G/DL (32-36); MEAN CORPUSCULAR VOLUME 100 FL (80-99); MEAN PLATELET VOLUME 9.5 FL (7.4-10.4); MONOCYTES # (AUTO) 2.3 X 10^3 (0.0-1.0); MONOCYTES % (AUTO) 11 % (0-12); NEUTROPHILS # (AUTO) 17.4 X 10^3 (1.8-7.8); NEUTROPHILS % (AUTO) 85 % (42-75); PLATELET COUNT 567 10^3/uL (130-400); WHITE BLOOD COUNT 20.6 10^3/uL (4.3-11.0)
[2018-09-10 04:05] LABS: BUN/CREATININE RATIO 16; CALCIUM 8.9 MG/DL (8.5-10.1); CARBON DIOXIDE 22 MMOL/L (21-32); CHLORIDE 104 MMOL/L (98-107); CHOLESTEROL 105 MG/DL (< 200); CREATININE SERUM 0.85 MG/DL (0.60-1.30); GFR ESTIMATED > 60; GLUCOSE 151 MG/DL (70-105); HDL CHOLESTEROL 35 MG/DL (40-60); POTASSIUM 4.5 MMOL/L (3.6-5.0); SODIUM 137 MMOL/L (135-145); TRIGLYCERIDES 65 MG/DL (<150); VLDL CHOLESTEROL 13 MG/DL (5-40)
[2018-09-10] MEDS: PIPERACILLIN/TAZOBACTAM (BULK) 4.5 GM in NS (IVPB) 100 ML IV SCH ×3 (04:20→22:03)
[2018-09-10] MEDS ORDERED: PIPERACILLIN/TAZO 4.5 GM VIAL (ZOSYN) IV ONE (04:21)
[2018-09-10] MEDS ORDERED: NS (IVPB) 100 ML ONE (04:21)
--- NOTE | 2018-09-10 05:58 | Pulmonary Progress Note ---
Subjective Time Seen by a Provider: 05:58 Subjective/Events-last exam Pt complains of pain. Sepsis Event Evaluation Height, Weight, BMI Height: 5'7.00" Weight: 161lbs. 1.0oz. 73.749626ss; 25.2 BMI Method:Stated Focused Exam Lactate Level 09/09/18 20:43: Lactic Acid Level 1.35 Exam Exam Vital Signs Date Time Temp Pulse Resp B/P (MAP) Pulse Ox O2 Delivery O2 Flow Rate FiO2 09/10/18 04:00 78 17 133/69 (90) Nasal Cannula 2.00 09/10/18 04:00 Nasal Cannula 2.00 09/10/18 03:00 80 13 130/65 (86) 93 Nasal Cannula 2.00 09/10/18 02:32 93 Nasal Cannula 2.00 09/10/18 02:00 77 15 117/61 (79) Nasal Cannula 2.00 09/10/18 01:00 78 09/10/18 01:00 78 15 126/64 (84) Nasal Cannula 2.00 09/10/18 00:00 82 24 128/56 (80) 93 Nasal Cannula 2.00 09/10/18 00:00 Nasal Cannula 2.00 09/09/18 23:00 82 12 124/64 (84) 94 Nasal Cannula 2.00 09/09/18 22:00 85 25 143/60 (87) 95 Nasal Cannula 2.00 09/09/18 21:00 94 Nasal Cannula 2.00 09/09/18 21:00 80 21 139/67 (91) 94 Nasal Cannula 2.00 09/09/18 20:45 80 19 144/69 (94) 97 Nasal Cannula 2.00 09/09/18 20:30 75 18 134/15 (54) 98 Nasal Cannula 2.00 09/09/18 20:26 91 Nasal Cannula 2.00 09/09/18 20:15 75 13 133/70 (91) 90 Nasal Cannula 2.00 09/09/18 20:00 78 15 141/96 (111) 94 Room Air 09/09/18 20:00 98.9 09/09/18 20:00 Nasal Cannula 2.00 09/09/18 19:15 75 22 94/60 (71) 95 Room Air 09/09/18 19:02 99.7 09/09/18 19:00 78 09/09/18 19:00 75 15 153/84 (107) 96 Room Air 09/09/18 19:00 99.0 75 15 153/84 96 Room Air 2.00 2.00 09/09/18 19:00 94 Nasal Cannula 2.00 09/09/18 18:16 85 18 143/64 (90) 96 Room Air 09/09/18 14:55 99.0 116 20 145/76 (99) 93 Room Air 09/09/18 14:55 92 Nasal Cannula 2.00 09/09/18 14:55 Nasal Cannula 2.0 I & O 09/10/18 07:00 Intake Total 430 ml Output Total 900 ml Balance -470 ml Height & Weight Height: 5'7.00" Weight: 161lbs. 1.0oz. 73.131338gb; 25.2 BMI Method:Stated General Appearance: Chronically ill, Mild Distress HEENT: PERRL/EOMI, TMs Normal, Normal ENT Inspection, Pharynx Normal; No Moist Mucous Membranes Neck: Full Range of Motion, Normal Inspection, Non Tender, Supple Respiratory: No Chest Non Tender; Lungs Clear, Normal Breath Sounds, No Accessory Muscle Use, No Respiratory Distress Cardiovascular: Regular Rate, Rhythm, No Edema, Normal Peripheral Pulses Capillary Refill: Less Than 3 Seconds Extremity: Normal Capillary Refill, No Pedal Edema Neurologic/Psychiatric: Alert, Oriented x3 Skin: Normal Color, Warm/Dry Results Lab Laboratory Tests 09/09/18 15:05 09/10/18 03:20 Assessment/Plan Assessment/Plan UTI -Guevara culture -Check [place] -Start Zosyn CP with pericardial effusion per CTscan -Cardiology is consulted -troponins -monitor -EKG Pneumobilia per CT -Check abdominal US JAMESON ALEMAN DO September 10, 2018 05:58
[2018-09-10] MEDS ORDERED: morphine INJ 4 MG/ML 1 ML (VIAL/SYRINGE) ONE (06:01)
[2018-09-10] MEDS: morphine INJ 4 MG/ML 1 ML (VIAL/SYRINGE) IVP PRN ×2 (06:07→10:28)
[2018-09-10] MEDS: CATHETER FLUSH 10 ML SYR IV SCH ×3 (06:13→20:36)
[2018-09-10] MEDS ORDERED: LIDOCAINE 4% (SALONPAS) PATCH ONE (06:27)
[2018-09-10] MEDS: NS IV 1000 ML 1,000 ML IV SCH ×3 (06:32→17:53)
[2018-09-10] MEDS: LIDOCAINE 4% (SALONPAS) PATCH TOP SCH (06:33)
--- NOTE | 2018-09-10 07:48 | Diagnostic Imaging Report ---
Indication: Dyspnea. Comparison: 09/09/2018. Discussion: Single portable upright view of the chest was obtained. Mild cardiomegaly is present. Small bilateral pleural effusions are new. Central venous congestion is present. No janki pulmonary edema. No focal consolidation or pneumothorax. No osseous abnormality. Impression: 1. Cardiomegaly and small bilateral pleural effusions. Dictated by: Dictated on workstation # [id number]
[2018-09-10] MEDS: ASPIRIN E.C. 81 MG (ECOTRIN) TAB PO SCH (07:59)
[2018-09-10] MEDS: lisINopril 5 MG (PRINIVIL) TABLET PO SCH (07:59)
[2018-09-10] MEDS: PANTOPRAZOLE 40 MG (PROTONIX) TAB PO SCH (07:59)
[2018-09-10] MEDS ORDERED: NITROGLYCERIN 0.4 MG SL TABS BTL 25'S SL PRN (08:15)
[2018-09-10] MEDS: NEBIVOLOL 5 MG TAB (BYSTOLIC) PO SCH (09:36)
--- NOTE | 2018-09-10 10:33 | Consultation-Cardiology ---
HPI-Cardiology Cardiology Consultation: Date of Consultation 09/10/18 Date of Admission Attending Physician Brooke Morin DO Admitting Physician Hang Michelle MD Consulting Physician Lo PEDRAZA MD HPI: Time Seen by a Provider: 09:45 Chief Complaint: Chest pain This is a 83-year-old lady who presented to the ER with complain of substernal chest pain which was sharp and moderate to severe. Nonradiating with associated mild shortness of breath. No other cardiac symptoms. She denies any significant post cardiac history. Reproducible chest pain with severe chest pain on palpating the sternum and costochondral areas. Review of Systems-Cardiology Review of Systems Constitutional: As described under HPI; No As described under HPI, No no symptoms reported, No chills, No fever, No lightheadedness Eyes: No As described under HPI, No no symptoms reported, No blindness, No blurred vision, No contact lenses, No drainage, No decreased acuity, No foreign body sensation, No pain, No vision change Ears/Nose/Throat: No As described under HPI, No no symptoms reported, No chronic hearing loss, No ear discharge, No ear pain, No nasal drainage, No ulcerations Respiratory: No no symptoms reported; As described under HPI; No As described under HPI, No cough, No orthopnea, No shortness of breath, No SOB with excertion Cardiovascular: No no symptoms reported; As described under HPI; No As described under HPI; chest pain; No edema, No irregular heart rate, No lightheadedness, No palpitations Gastrointestinal: No no symptoms reported, No As described under HPI, No abdomen distended, No abdominal pain, No blood streaked bowels, No constipation , No diarrhea, No nausea, No vomiting, No stool coloration changes Genitourinary: No As described under HPI, No burning, No dysuria, No discharge , No frequency, No flank pain, No hematuria, No urgency : Yes : No Skin: No rash, No skin related problems, No ulcerations Psychiatric/Neurological: No anxiety, No depression, No seizure, No focal weakness, No syncope Hematologic: No bleeding abnormalities SCF-Jgxzek-Pvzuoz Hx Patient Social History Alcohol Use: Denies Use Recreational Drug Use: No Smoking Status: Never a Smoker 2nd Hand Smoke Exposure: No Recent Foreign Travel: No Recent Infectious Disease Expo: No Hospitalization with Isolation: Denies Physical Abuse Screen: No Sexual Abuse: No Immunizations Up To Date Tetanus Booster (TDap): Unknown Date of Pneumonia Vaccine: Jan 30, 2015 Past Medical History PMH As described under Assessment. Family Medical History Family History: PATIENT CONFUSED Allergies and Home Medications Allergies Coded Allergies: Sulfa (Sulfonamide Antibiotics) (Unverified Allergy, Unknown, 08/23/18) codeine (Verified Adverse Reaction, Mild, confusion, 08/23/18) okay with dr. michelle for hydrocodone Home Medications Aspirin 81 Mg Tablet.dr, 81 MG PO DAILY, (Reported) Cholecalciferol (Vitamin D3) 5,000 Unit Capsule, 5,000 UNIT PO DAILY, (Reported) Colestipol HCl 1 Gm Tablet, 1 GM PO BID, (Reported) Hydrocodone Bit/Acetaminophen 1 Tab Tab, 1 TAB PO Q6HR PRN for PAIN-MODERATE Prescribed by: HANG MICHELLE on 08/28/18 0914 Lipase/Protease/Amylase 1 Each Capsule.dr, 2 CAP PO TID, (Reported) Lipase/Protease/Amylase 1 Each Capsule.dr, 1 CAP PO UD PRN for CHRONIC PANCREATITIS, (Reported) Nebivolol HCl 20 Mg Tablet, 20 MG PO DAILY, (Reported) Nifedipine 90 Mg Tab.er.24, 90 MG PO HS, (Reported) Pantoprazole Sodium 40 Mg Tablet.dr, 40 MG PO DAILY, (Reported) Sertraline HCl 100 Mg Tablet, 200 MG PO DAILY, (Reported) TAKES 2 (100MG) TABLETS Spironolactone 25 Mg Tablet, 12.5 MG PO DAILY, (Reported) TAKES 1/2 (25MG) TABLET Tramadol HCl 50 Mg Tablet, 50 MG PO Q6H PRN for PAIN-MILD Prescribed by: HANG MICHELLE on 08/28/18 0914 Patient Home Medication List Home Medication List Reviewed: Yes Physical Exam-Cardiology Physical Exam Vital Signs/I&O 09/10/18 09/10/18 09/10/18 09/10/18 08:07 08:08 08:17 08:49 Temp 97.2 Pulse Ox 94 O2 Delivery Nasal Cannula Nasal Cannula Nasal Cannula O2 Flow Rate 2.00 2.00 2.00 09/10/18 09/10/18 09/10/18 09/10/18 09:00 10:00 11:24 11:49 Temp 99.1 Pulse 92 117 101 Resp 22 10 16 B/P (MAP) 137/69 (91) Pulse Ox 92 O2 Delivery Nasal Cannula Nasal Cannula Nasal Cannula Nasal Cannula O2 Flow Rate 2.00 2.00 2.00 2.00 09/10/18 09/10/18 09/10/18 14:30 15:25 16:25 Temp 97.3 Pulse 88 Resp 20 B/P (MAP) 154/74 (100) Pulse Ox 94 92 95 O2 Delivery Nasal Cannula Nasal Cannula Nasal Cannula O2 Flow Rate 2.00 2.00 2.00 09/10/18 00:00 Intake Total 230 ml Output Total 900 ml Balance -670 ml Capillary Refill : Less Than 3 Seconds Constitutional: appears stated age, AAO x 3; No apparent distress; well- developed, well-nourished HEENT: PERRL; No normal ENT inspection, No TMs normal, No pharynx normal, No scleral icterus (R), No scleral icterus (L), No pale conjunctivae (R), No pale conjunctivae (L), No photophobia, No TM abnormal (R), No TM abnormal (L), No pharyngeal erythema, No tonsillar exudate, No other, No discharge, No EOMI; hearing is well preserved; No hard of hearing; oral hygience is good; No ulceration, No xanthelasmas are seen Neck: No non-tender, No full range of motion, No supple, No normal inspection, No carotid bruit, No limited range of motion, No lymphadenopathy (R), No lymphadenopathy (L), No tender lateral, No tender midline, No thyromegaly, No other; carotid pulses are 2 + bilaterally; No with good upstrokes Respiratory: No accessory muscle use, No respiratory distress, No chest tender , No chest expansion is symmetric; chest is bilaterally symmetric; No lungs clear to percussion; lungs clear to auscultation; No crackles, No rhonchi, No rales, No stridor, No wheezing, No pleural rub, No other Cardiovascular: regular rate-rhythm, S1 and S2, systolic murmur Gastrointestinal: No tender, No soft, No round, No distended, No pulsatile mass , No organomegaly, No guarding, No rebound, No tenderness, No hernia, No mass, No audible bowel sounds, No abnormal bowel sounds, No abdominal bruits, No spleenomegaly, No other Rectal: deferred Extremities: No normal range of motion, No non-tender, No normal inspection, No pedal edema, No calf tenderness, No normal capillary refill, No pelvis stable , No calf tenderness, No inflammation, No pedal edema, No slow capillary refill , No swelling, No other, No abrasion, No clubbing, No cyanosis, No ecchymosis, No laceration, No no lower extremity edema bilateral, No significant edema, No tenderness, No wound Neurologic/Psychiatric: no motor/sensory deficits, alert, normal mood/affect, oriented x 3, power is 5/5 both on sides Skin: No normal color, No warm/dry, No cyanosis, No cool, No diaphoresis, No damp, No ecchymosis, No jaundice, No mottled, No pallor, No rash, No tattoos/ piercings, No ulcerations, No rash on exposed areas, No ulcerations on exposed areas, No other Data Review Labs Laboratory Tests 09/09/18 20:43: Lactic Acid Level 1.35, Troponin I < 0.028 09/09/18 23:45: Troponin I < 0.028 09/10/18 03:20: Troponin I < 0.028, White Blood Count 20.6H, Red Blood Count 3.14L, Hemoglobin 9.8L, Hematocrit 31L, Mean Corpuscular Volume 100H, Mean Corpuscular Hemoglobin 31, Mean Corpuscular Hemoglobin Concent 31L, Red Cell Distribution Width 18.0H, Platelet Count 567H, Mean Platelet Volume 9.5, Neutrophils (%) (Auto) 85H, Lymphocytes (%) (Auto) 4L, Monocytes (%) (Auto) 11, Eosinophils (%) (Auto) 0, Basophils (%) (Auto) 0, Neutrophils # (Auto) 17.4H, Lymphocytes # (Auto) 0.9L, Monocytes # (Auto) 2.3H, Eosinophils # (Auto) 0.0, Basophils # (Auto) 0.0, Sodium Level 137, Potassium Level 4.5, Chloride Level 104, Carbon Dioxide Level 22, Anion Gap 11, Blood Urea Nitrogen 14, Creatinine 0.85, Estimat Glomerular Filtration Rate > 60, BUN/Creatinine Ratio 16, Glucose Level 151H, Calcium Level 8.9, Triglycerides Level 65, Cholesterol Level 105, LDL Cholesterol Direct 45, VLDL Cholesterol 13, HDL Cholesterol 35L Microbiology 09/09/18 Blood Culture - Preliminary, Resulted No growth ECG Impression ECG Initial ECG Rhythm: Normal Sinus Initial ECG Impression: Normal A/P-Cardiology Assessment/Admission Diagnosis Reproducible chest pain, UTI Plan Negative serial troponin with negative EKG. Acute coronary syndrome is ruled out. Patient can have a nuclear stress test as an outpatient. However I believe the chest pain is noncardiac since it is very reproducible and the patient had severe pain when I was palpating her chest and pressed on the sternal area. I believe it could be costochondritis as well. Dr. Bird has given a lidocaine patch which has helped. UTI, antibiotics as per the primary team. Thank you for your consultation. Please call me if you have any questions. Christine Pedraza MD, FACP, FACC, FSCAI, FHRS, CCDS Interventional Cardiology Cardiac Electrophysiology Vascular Medicine and Endovascular Interventions Clinical Quality Measures DVT/VTE Risk/Contraindication: Risk Factor Score Per Nursin RFS Level Per Nursing on Admit: 4+=Very High Lo PEDRAZA MD September 10, 2018 10:33
[2018-09-10] MEDS ORDERED: LORazepam INJ 2 MG/ML (ATIVAN) VIAL ONE (10:52)
[2018-09-10] MEDS ORDERED: LORazepam INJ 2 MG/ML (ATIVAN) VIAL IVP PRN (11:00)
--- NOTE | 2018-09-10 11:49 | History & Physical-Hospitalist ---
History of Present Illness HPI/Chief Complaint CC: Chest pain HPI: This is an 83yo[facility] patient of Dr Michelle who was admitted via ER with complaints of chest pain. Patient has profound dementia and cannot provide any details. Patient underwent sepsis w/u along with ACS w/u and CT angiogram was obtained due to elevated d-dimer (likely due to recent hip fracture and repair) and that CT chest was negative for PE. Pericardial effusions was noted on CT scan so patient was placed on CSD and monitored closely. Dr Bird and Dr Pedraza are both appreciated. I have reviewed labs, meds and home meds. Patient did get agitated later this morning and had increased confusion. Source: patient, RN/MD Exam Limitations: no limitations Date Seen 09/10/18 Time Seen by a Provider: 10:30 Attending Physician Brooke Allan DO PCP Yolanda Michelle MD Referring Physician Date of Admission September 10, 2018 at 10:50 Home Medications & Allergies Home Medications Reviewed patient Home Medication Reconciliation performed by pharmacy medication reconciliations renal dialysis technician and/or nursing. Patients Allergies have been reviewed. Allergies Allergies Coded Allergies Sulfa (Sulfonamide Antibiotics) (Unverified Allergy, Unknown, 08/23/18) codeine (Verified Adverse Reaction, Mild, confusion, 08/23/18) okay with dr. michelle for hydrocodone Past Rpyungq-Szhpcz-Pkxtzc Hx Past Med/Social Hx: Reviewed Nursing Past Med/Soc Hx, Reviewed and Corrections made Patient Social History Marrital Status: single Employed/Student: retired Alcohol Use: Denies Use Recreational Drug Use: No Smoking Status: Never a Smoker 2nd Hand Smoke Exposure: No Physical Abuse Screen: No Sexual Abuse: No Recent Foreign Travel: No Contact w/other who traveled: No Recent Hopitalizations: No Recent Infectious Disease Expo: No Immunizations Up To Date Tetanus Booster (TDap): Unknown Date of Pneumonia Vaccine: Jan 30, 2015 Seasonal Allergies Seasonal Allergies: No Past Medical History Surgeries: Orthopedic Cardiac: Hypertension, Valvular Heart Disease Neurological: Dementia : No Genitourinary: Bladder Infection Gastrointestinal: Pancreatitis, Gall Bladder Disease Loss of Vision: Denies Hearing Impairment: Denies Psychosocial: Anxiety History of Blood Disorders: No Family History PATIENT CONFUSED Heart Disease Review of Systems ROS-Unable to Obtain: confusion precludes details Constitutional: see HPI Physical Exam Physical Exam Vital Signs Vital Signs - First Documented 09/09/18 14:55 Temp 99.0 Pulse 116 Resp 20 B/P (MAP) 145/76 (99) Pulse Ox 92 O2 Delivery Nasal Cannula O2 Flow Rate 2.0 Capillary Refill : Less Than 3 Seconds Height, Weight, BMI Height: 5'7.00" Weight: 161lbs. 1.0oz. 73.483546ce; 25.2 BMI Method:Stated General Appearance: No Apparent Distress, WD/WN, Chronically ill, Other ( confused) Respiratory: Chest Non Tender, Lungs Clear, Normal Breath Sounds, No Accessory Muscle Use, No Respiratory Distress Cardiovascular: Regular Rate, Rhythm, No Edema, No Gallop, No JVD, Normal Peripheral Pulses, Systolic Murmur Neurologic/Psychiatric: Alert, Disoriented Skin: Normal Color, Warm/Dry Results Results/Procedures Labs Laboratory Tests 09/09/18 15:05 09/10/18 03:20 Patient resulted labs reviewed. Assessment/Plan Admission Diagnosis Assessment: UTI-DC Rocephin and maintain Zosyn CP with pericardial effusion Cardiology consulted, ECHO completed Pneumobilia per CT-ordered USG Dementia HTN Leukocytosis DNR Recent hip fracture Plan: Monitor labs Abx Agitation meds DNR Admission Status: Inpatient Order (span 2 midnights) Reason for Inpatient Admission: Severe illness with pericardial effusion Diagnosis/Problems Diagnosis/Problems (1) Chest pain Status: Acute Qualifiers: Chest pain type: unspecified Qualified Codes: R07.9 - Chest pain, unspecified (2) Pneumobilia Status: Acute (3) Leukocytosis Status: Acute Qualifiers: Leukocytosis type: leukemoid reaction Qualified Codes: D72.823 - Leukemoid reaction (4) UTI (urinary tract infection) Status: Acute Qualifiers: Urinary tract infection type: acute cystitis Hematuria presence: without hematuria Qualified Codes: N30.00 - Acute cystitis without hematuria (5) Agitation Status: Acute (6) Thrombocytosis Status: Acute (7) History of hip fracture Status: Chronic (8) DNR (do not resuscitate) Status: Chronic (9) Advanced age Status: Chronic (10) Poor prognosis Status: Chronic (11) Dementia Status: Chronic Qualifiers: Dementia type: unspecified type Dementia behavioral disturbance: with behavioral disturbance Qualified Codes: F03.91 - Unspecified dementia with behavioral disturbance (12) Hypertension Status: Chronic Qualifiers: Hypertension type: essential hypertension Qualified Codes: I10 - Essential (primary) hypertension Clinical Quality Measures DVT/VTE Risk/Contraindication: Risk Factor Score Per Nursin RFS Level Per Nursing on Admit: 4+=Very High BROOKE ALLAN DO September 10, 2018 11:49
--- NOTE | 2018-09-10 14:06 | NUR ---
pt transferred to [facility] via w/ staff and personal belongings. bedside report given to zeenat rn who assumes care of pt. no questions/concerns voiced.
[2018-09-10] MEDS ORDERED: CALCIUM CARBONATE 500 MG (TUMS) TAB.CHEW PO PRN (17:00)
[2018-09-10] MEDS ORDERED: LOPERAMIDE 2 MG (IMODIUM) CAP PO PRN (17:00)
[2018-09-10] MEDS ORDERED: DOCUSATE SODIUM 100 MG (COLACE) CAP PO PRN (17:00)
[2018-09-10] MEDS ORDERED: diphenhydrAMINE 25 MG TAB (BENADRYL) PO PRN (17:00)
[2018-09-10] MEDS ORDERED: MELATONIN 3 MG TABLET PO PRN (17:00)
[2018-09-10] MEDS ORDERED: ACETAMINOPHEN 500 MG TAB (TYLENOL) PO PRN (17:00)
[2018-09-10] MEDS ORDERED: cefTRIAXone 1,000 MG/SWFI 10 ML IV PUSH IV SCH ×2 (18:00)
[2018-09-10] MEDS: POLYETHYLENE GLYCOL 17 GM (MIRALAX) PACK PO SCH (20:26)
[2018-09-10] MEDS: ATORVASTATIN 40 MG (LIPITOR) TABLET PO SCH (20:27)
[2018-09-10] MEDS: SERTRALINE 100 MG (ZOLOFT) TAB PO SCH (20:27)
[2018-09-10] MEDS: risperiDONE 0.25 MG (RisperDAL) TAB PO SCH (20:27)
[2018-09-10] MEDS: LIDOCAINE PATCH REMOVAL TP SCH (20:35)
[2018-09-10] MEDS: LORazepam INJ 2 MG/ML (ATIVAN) VIAL IVP PRN (20:41)
[2018-09-11] VITALS: BP 121/57
[2018-09-11] MEDS: RT-ALBUTEROL/IPRATROPIUM 3 ML (DUONEB) VIAL INH SCH ×4 (02:36→20:21)
[2018-09-11] MEDS: PIPERACILLIN/TAZOBACTAM (BULK) 4.5 GM in NS (IVPB) 100 ML IV SCH ×3 (03:21→18:46)
[2018-09-11] MEDS: NS IV 1000 ML 1,000 ML IV SCH ×2 (03:45→22:35)
[2018-09-11 04:59] VITALS: BP 171/79
[2018-09-11 05:07] LABS: BASOPHILS % (AUTO) 0 % (0-10); EOSINOPHILS # (AUTO) 0.1 10^3/uL (0.0-0.3); EOSINOPHILS % (AUTO) 1 % (0-10); HEMATOCRIT 30 % (35-52); HEMOGLOBIN 9.2 G/DL (11.5-16.0); LYMPHOCYTES % (AUTO) 6 % (12-44); MEAN CORPUSCULAR HEMOGLOBIN 31 PG (25-34); MEAN CORPUSCULAR HGB CONC 31 G/DL (32-36); MEAN CORPUSCULAR VOLUME 101 FL (80-99); MEAN PLATELET VOLUME 9.3 FL (7.4-10.4); MONOCYTES # (AUTO) 1.7 X 10^3 (0.0-1.0); MONOCYTES % (AUTO) 10 % (0-12); NEUTROPHILS # (AUTO) 13.9 X 10^3 (1.8-7.8); NEUTROPHILS % (AUTO) 83 % (42-75); PLATELET COUNT 531 10^3/uL (130-400); RED CELL DISTRIBUTION WIDTH 17.9 % (10.0-14.5); WHITE BLOOD COUNT 16.8 10^3/uL (4.3-11.0)
[2018-09-11 05:31] LABS: ALANINE AMINOTRANSFERASE 8 U/L (0-55); ALBUMIN 2.8 GM/DL (3.2-4.5); ALKALINE PHOSPHATASE 90 U/L (40-136); BILIRUBIN,TOTAL 0.4 MG/DL (0.1-1.0); BUN/CREATININE RATIO 19; CALCIUM 8.9 MG/DL (8.5-10.1); CARBON DIOXIDE 22 MMOL/L (21-32); CHLORIDE 107 MMOL/L (98-107); CREATININE SERUM 0.78 MG/DL (0.60-1.30); GFR ESTIMATED > 60; GLUCOSE 115 MG/DL (70-105); POTASSIUM 4.1 MMOL/L (3.6-5.0); SODIUM 140 MMOL/L (135-145); TOTAL PROTEIN 5.3 GM/DL (6.4-8.2)
[2018-09-11] MEDS: CATHETER FLUSH 10 ML SYR IV SCH ×3 (06:00→21:34)
[2018-09-11] MEDS: LIDOCAINE 4% (SALONPAS) PATCH TOP SCH (08:10)
[2018-09-11] MEDS: POLYETHYLENE GLYCOL 17 GM (MIRALAX) PACK PO SCH ×2 (08:10→21:34)
[2018-09-11] MEDS: LORazepam INJ 2 MG/ML (ATIVAN) VIAL IVP PRN (08:11)
[2018-09-11] MEDS: NEBIVOLOL 5 MG TAB (BYSTOLIC) PO SCH (08:11)
[2018-09-11] MEDS: lisINopril 5 MG (PRINIVIL) TABLET PO SCH (08:11)
[2018-09-11] MEDS: PANTOPRAZOLE 40 MG (PROTONIX) TAB PO SCH (08:11)
[2018-09-11] MEDS: risperiDONE 0.25 MG (RisperDAL) TAB PO SCH ×2 (08:11→21:30)
[2018-09-11] MEDS: ASPIRIN E.C. 81 MG (ECOTRIN) TAB PO SCH (08:11)
--- NOTE | 2018-09-11 08:30 | Progress Note ---
Subjective Date Seen by a Provider: September 11, 2018 Time Seen by a Provider: 08:30 Subjective/Events-last exam PT IS AN 83 Y/O FEMALE WHO IS A NEW PATIENT TO MY PRACTICE -SHE SUSTAINED A HIP FRACTURE LAST MONTH AND HAS DEVELOPED A URINARY TRACT INFECTION - ENTEROCOCCUS - SENSITIVITY PENDING. SHE IS UNABLE TO INTERACT FOR ANSWERING OF ANY QUESTIONS THIS MORNING. STAFF REPORTS THAT SHE HAS BEEN EITHER WILDLY PULLING AT LINES, OR SEVERELY SEDATED. Review of Systems General: Fatigue Pulmonary: No Cough Gastrointestinal: No: Vomiting Genitourinary: Other (GONZALEZ IN PLACE) Neurological: Confusion PT UNABLE TO PARTICIPATE IN MEANINGFUL REVIEW OF SYSTEMS Focused Exam Lactate Level 09/09/18 20:43: Lactic Acid Level 1.35 Objective Exam Last Set of Vital Signs Vital Signs Date Time Temp Pulse Resp B/P (MAP) Pulse Ox O2 Delivery O2 Flow Rate FiO2 09/11/18 07:00 94 Nasal Cannula 2.00 09/11/18 04:59 97.5 94 16 171/79 (109) Capillary Refill : Less Than 3 Seconds I&O Intake and Output 09/11/18 00:00 Intake Total 3085 ml Output Total 610 ml Balance 2475 ml Intake Oral 645 ml IV Total 2440 ml Output Urine Total 610 ml General: Other (ALERT, BUT NOT ORIENTED TO PERSON/PLACE/TIME) HEENT: Atraumatic, Mucous Memb Moist/[place], Other (FOOD IN MOUTH, PT NOT FOLLOWING CUES TO SWALLOW) Lungs: Clear to Auscultation, Other (POOR EFFORT) Heart: Regular Rate Abdomen: Normal Bowel Sounds, Soft, No Tenderness Extremities: No Clubbing, No Cyanosis, No Edema Skin: No Significant Lesion (NO SIGNIFICANT LESION APPRECIATED ON BRIEF EXAM) Neuro: Other (PT UNABLE TO FOLLOW COMMANDS/DIRECTIONS) Psych/Mental Status: Other (PT CONFUSED) Results Lab Laboratory Tests 09/11/18 04:44: Sodium Level 140, Potassium Level 4.1, Chloride Level 107, Carbon Dioxide Level 22, Anion Gap 11, Blood Urea Nitrogen 15, Creatinine 0.78, Estimat Glomerular Filtration Rate > 60, BUN/Creatinine Ratio 19, Glucose Level 115H, Calcium Level 8.9, Corrected Calcium 9.9, Total Bilirubin 0.4, Aspartate Amino Transf ( AST/SGOT) 12, Alanine Aminotransferase (ALT/SGPT) 8, Alkaline Phosphatase 90, Total Protein 5.3L, Albumin 2.8L 09/11/18 04:45: White Blood Count 16.8H, Red Blood Count 2.93L, Hemoglobin 9.2L, Hematocrit 30L , Mean Corpuscular Volume 101H, Mean Corpuscular Hemoglobin 31, Mean Corpuscular Hemoglobin Concent 31L, Red Cell Distribution Width 17.9H, Platelet Count 531H, Mean Platelet Volume 9.3, Neutrophils (%) (Auto) 83H, Lymphocytes (% ) (Auto) 6L, Monocytes (%) (Auto) 10, Eosinophils (%) (Auto) 1, Basophils (%) ( Auto) 0, Neutrophils # (Auto) 13.9H, Lymphocytes # (Auto) 1.0, Monocytes # (Auto ) 1.7H, Eosinophils # (Auto) 0.1, Basophils # (Auto) 0.0 Microbiology 09/09/18 Blood Culture - Preliminary, Resulted No growth 09/09/18 Urine Culture - Preliminary, Resulted Enterococcus faecium Assessment/Plan Assessment/Plan Assess & Plan/Chief Complaint UTI CHEST PAIN - CT SCAN SHOWED PERICARDIAL EFFUSION PNEUMOBILIA ADVANCED DEMENTIA WITH DELIRIUM HYPERTENSION LEUKOCYTOSIS RECENT LEFT HIP FRACTURE UTI - ENTEROCOCCAL INFECTION - WAITING ON CULTURE REPORT - PT ON ZOSYN CHEST PAIN - CT SCAN SHOWED PERICARDIAL EFFUSION - CARDIOLOGY HAS BEEN CONSULTED - ECHO HAS BEEN ORDERED WELL - WAITING ON REPORT. PNEUMOBILIA - ULTRASOUND PENDING ADVANCED DEMENTIA WITH DELIRIUM - SUPPORTIVE CARE - KEEP PT OFF OF ARICEPT - CONTINUE WITH NAMENDA - ANTICIPATE SOME CLEARING OF SENSORIUM FROM DELIRIUM TIME PASSES AND INFECTION CLEARS. HYPERTENSION - RESUME HOME REGIMEN LEUKOCYTOSIS - MONITOR CBC RECENT LEFT HIP FRACTURE - SUPPORTIVE CARE, PHYSICAL THERAPY WHEN PT MORE COGNITIVELY ABLE TO PARTICIPATE IN THERAPY. Clinical Quality Measures DVT/VTE Risk/Contraindication: Risk Factor Score Per Nursin RFS Level Per Nursing on Admit: 4+=Very High HANG URRUTIA MD September 11, 2018 08:30
[2018-09-11 08:36] VITALS: BP 197/90
--- NOTE | 2018-09-11 10:20 | NUR ---
CM/SS. Patient was admitted to [facility] 08/28/18 under Medicare skilled status post op for hip fracture. She had an established assisted living apartment there, goal was short term rehab and return to her apartment, to be determined on her progress. Patient will return skilled status from this hospital stay once medically stable.
[2018-09-11] MEDS ORDERED: ONDN4T PO (10:54)
[2018-09-11] MEDS ORDERED: ASPI325T32 PO (10:54)
[2018-09-11] MEDS ORDERED: HYDR-3812 PO (10:54)
[2018-09-11] MEDS ORDERED: TRAM50TA2 PO (10:54)
[2018-09-11 12:00] VITALS: BP 168/88
--- NOTE | 2018-09-11 14:45 | NUR ---
Pastoral care visit.
--- NOTE | 2018-09-11 15:18 | Pulmonary Progress Note ---
Subjective Time Seen by a Provider: 15:17 Subjective/Events-last exam Pt is lethargic. Sepsis Event Evaluation Height, Weight, BMI Height: 5'7.00" Weight: 163lbs. 1.0oz. 73.681678ls; 25.2 BMI Method:Stated Focused Exam Lactate Level 09/09/18 20:43: Lactic Acid Level 1.35 Exam Exam Vital Signs Date Time Temp Pulse Resp B/P (MAP) Pulse Ox O2 Delivery O2 Flow Rate FiO2 09/11/18 12:00 97.8 95 22 168/88 (114) 92 Nasal Cannula 2.00 09/11/18 09:00 Nasal Cannula 2.00 09/11/18 08:36 97.7 102 20 197/90 (125) 92 Nasal Cannula 2.00 09/11/18 07:00 94 Nasal Cannula 2.00 09/11/18 04:59 97.5 94 16 171/79 (109) 93 Nasal Cannula 2.00 09/11/18 02:37 92 Nasal Cannula 2.00 09/11/18 00:00 97.6 82 16 121/57 (78) 93 Nasal Cannula 2.00 09/10/18 21:59 94 Nasal Cannula 2.00 09/10/18 21:00 Nasal Cannula 2.00 09/10/18 20:00 97.8 89 20 159/74 (102) 95 Nasal Cannula 2.00 09/10/18 16:25 97.3 88 20 154/74 (100) 95 Nasal Cannula 2.00 09/10/18 15:25 92 Nasal Cannula 2.00 I & O 09/11/18 07:00 Intake Total 4055 ml Output Total 1110 ml Balance 2945 ml Height & Weight Height: 5'7.00" Weight: 163lbs. 1.0oz. 73.598128bb; 25.2 BMI Method:Stated General Appearance: No Apparent Distress, WD/WN, Chronically ill, Other ( confused) HEENT: PERRL/EOMI, TMs Normal, Normal ENT Inspection, Pharynx Normal; No Moist Mucous Membranes Neck: Full Range of Motion, Normal Inspection, Non Tender, Supple Respiratory: Chest Non Tender, Lungs Clear, Normal Breath Sounds, No Accessory Muscle Use, No Respiratory Distress Cardiovascular: Regular Rate, Rhythm, No Edema, No Gallop, No JVD, Normal Peripheral Pulses, Systolic Murmur Capillary Refill: Less Than 3 Seconds Extremity: Normal Capillary Refill, No Pedal Edema Neurologic/Psychiatric: Alert, Disoriented Skin: Normal Color, Warm/Dry Results Lab Laboratory Tests 09/10/18 03:20 09/11/18 04:44 09/11/18 04:45 Assessment/Plan Assessment/Plan UTI -Guevara culture -Zosyn CP with pericardial effusion per CTscan -Cardiology is consulted -monitor -EKG Pneumobilia per CT - abdominal US JAMESON ALEMAN DO September 11, 2018 15:18
--- NOTE | 2018-09-11 15:49 | Diagnostic Imaging Report ---
PROCEDURE: US Gallbladder. TECHNIQUE: Multiple real-time grayscale images were obtained over the right upper quadrant in various projections. INDICATION: Pneumobilia. FINDINGS: The liver is mildly enlarged at 18.6 cm. No discrete liver mass is identified. The gallbladder is surgically absent. No biliary ductal dilatation is seen. Extrahepatic bile duct is 6 mm. Pancreas is unremarkable. Right kidney is unremarkable. There is no ascites. IMPRESSION: Status post cholecystectomy. No abnormality is detected. Dictated by: Dictated on workstation # [id number]
[2018-09-11 16:00] VITALS: BP 166/74
--- NOTE | 2018-09-11 17:10 | Cardiology Progress Note ---
Cardiology SOAP Progress Note Subjective: Patient is not communicating. Objective: I&O/Vital Signs 09/11/18 09/11/18 09/11/18 09/11/18 07:00 08:36 09:00 12:00 Temp 97.7 97.8 Pulse 102 95 Resp 20 22 B/P (MAP) 197/90 (125) 168/88 (114) Pulse Ox 94 92 92 O2 Delivery Nasal Cannula Nasal Cannula Nasal Cannula Nasal Cannula O2 Flow Rate 2.00 2.00 2.00 2.00 09/11/18 09/11/18 15:56 16:00 Temp 97.4 Pulse 99 Resp 22 B/P (MAP) 166/74 (104) Pulse Ox 89 91 O2 Delivery Nasal Cannula Nasal Cannula O2 Flow Rate 2.00 2.00 09/11/18 00:00 Intake Total 1365 ml Output Total 285 ml Balance 1080 ml Weight (Pounds): 163 Weight (Ounces): 1.0 Weight (Calculated Kilograms): 73.306563 Constitutional: appears stated age; No apparent distress; well-developed, well- nourished Respiratory: No accessory muscle use, No respiratory distress, No chest tender , No chest expansion is symmetric; chest is bilaterally symmetric; No lungs clear to percussion; lungs clear to auscultation; No crackles, No rhonchi, No rales, No stridor, No wheezing, No pleural rub, No other Cardiovascular: regular rate-rhythm, S1 and S2, systolic murmur Gastrointestional: No tender, No soft, No round, No distended, No pulsatile mass, No organomegaly, No guarding, No rebound, No tenderness, No hernia, No mass, No audible bowel sounds, No abnormal bowel sounds, No abdominal bruits, No spleenomegaly, No other Extremities: No normal range of motion, No non-tender, No normal inspection, No pedal edema, No calf tenderness, No normal capillary refill, No pelvis stable , No calf tenderness, No inflammation, No pedal edema, No slow capillary refill , No swelling, No other, No abrasion, No clubbing, No cyanosis, No ecchymosis, No laceration, No no lower extremity edema bilateral, No significant edema, No tenderness, No wound Neurologic/Psychiatric: no motor/sensory deficits, normal mood/affect, disoriented x 3, power is 5/5 both on sides Skin: No normal color, No warm/dry, No cyanosis, No cool, No diaphoresis, No damp, No ecchymosis, No jaundice, No mottled, No pallor, No rash, No tattoos/ piercings, No ulcerations, No rash on exposed areas, No ulcerations on exposed areas, No other Results/Procedures: Labs Laboratory Tests 09/11/18 04:44: Sodium Level 140, Potassium Level 4.1, Chloride Level 107, Carbon Dioxide Level 22, Anion Gap 11, Blood Urea Nitrogen 15, Creatinine 0.78, Estimat Glomerular Filtration Rate > 60, BUN/Creatinine Ratio 19, Glucose Level 115H, Calcium Level 8.9, Corrected Calcium 9.9, Total Bilirubin 0.4, Aspartate Amino Transf ( AST/SGOT) 12, Alanine Aminotransferase (ALT/SGPT) 8, Alkaline Phosphatase 90, Total Protein 5.3L, Albumin 2.8L 09/11/18 04:45: White Blood Count 16.8H, Red Blood Count 2.93L, Hemoglobin 9.2L, Hematocrit 30L , Mean Corpuscular Volume 101H, Mean Corpuscular Hemoglobin 31, Mean Corpuscular Hemoglobin Concent 31L, Red Cell Distribution Width 17.9H, Platelet Count 531H, Mean Platelet Volume 9.3, Neutrophils (%) (Auto) 83H, Lymphocytes (% ) (Auto) 6L, Monocytes (%) (Auto) 10, Eosinophils (%) (Auto) 1, Basophils (%) ( Auto) 0, Neutrophils # (Auto) 13.9H, Lymphocytes # (Auto) 1.0, Monocytes # (Auto ) 1.7H, Eosinophils # (Auto) 0.1, Basophils # (Auto) 0.0 Microbiology 09/09/18 Blood Culture - Preliminary, Resulted No growth 09/09/18 Urine Culture - Preliminary, Resulted Enterococcus faecium A/P: Assessment/Dx: Reproducible chest pain, UTI Plan: Negative serial troponin with negative EKG. Acute coronary syndrome is ruled out. However I believe the chest pain is noncardiac since it is very reproducible and the patient had severe pain when I was palpating her chest and pressed on the sternal area. I believe it could be costochondritis as well. Dr. Bird has given a lidocaine patch which has helped. Echocardiogram done 09/10/2018 shows normal LV function with moderate diastolic dysfunction. Mild concentric LVH. Moderate to severe mitral regurgitation. Moderate tricuspid regurgitation. Moderate pulmonary hypertension. Past she, defer to Dr. Michelle. UTI, antibiotics as per the primary team. Thank you for your consultation. Please call me if you have any questions. Christine Pedraza MD, FACP, FACC, FSCAI, FHRS, CCDS Interventional Cardiology Cardiac Electrophysiology Vascular Medicine and Endovascular Interventions Focused Exam Lactate Level 09/09/18 20:43: Lactic Acid Level 1.35 Lo PEDRAZA MD September 11, 2018 5:10 pm
[2018-09-11 19:59] VITALS: BP 135/63
[2018-09-11] MEDS: SERTRALINE 100 MG (ZOLOFT) TAB PO SCH (21:30)
[2018-09-11] MEDS: ATORVASTATIN 40 MG (LIPITOR) TABLET PO SCH (21:30)
[2018-09-11] MEDS: LIDOCAINE PATCH REMOVAL TP SCH (21:35)
[2018-09-12 00:23] VITALS: BP 129/86
--- NOTE | 2018-09-12 00:35 | NUR ---
Dr Michelle notified of increased HR and resp rate. and decrease in O2 sat. Orders received to decrease IV rate, IV lasix and notify family. IV rate decreased to 30ml/hr
[2018-09-12] MEDS ORDERED: FUROSEMIDE 40 MG/4 ML INJ (LASIX) ONE (00:45)
[2018-09-12] MEDS ORDERED: FUROSEMIDE 40 MG/4 ML INJ (LASIX) IVP ONE (00:45)
--- NOTE | 2018-09-12 01:00 | NUR ---
Sister Bee Mcdonald notified of change in condition, password set up at this time, Sister Bee Mcdonald {Legal Guardian} stated she would call the rest of the family.
[2018-09-12] MEDS: RT-ALBUTEROL/IPRATROPIUM 3 ML (DUONEB) VIAL INH SCH ×2 (03:47→06:44)
[2018-09-12 04:00] VITALS: BP 144/80
--- NOTE | 2018-09-12 04:00 | NUR ---
Dr Michelle notified of slight improvement and RT request for Bipap. Orders received .
[2018-09-12] MEDS: PIPERACILLIN/TAZOBACTAM (BULK) 4.5 GM in NS (IVPB) 100 ML IV SCH (04:30)
[2018-09-12 05:35] LABS: HEMOGLOBIN 9.9 G/DL (11.5-16.0); MEAN PLATELET VOLUME 9.9 FL (7.4-10.4); RED CELL DISTRIBUTION WIDTH 17.6 % (10.0-14.5); WHITE BLOOD COUNT 22.6 10^3/uL (4.3-11.0)
[2018-09-12 05:57] LABS: ALBUMIN 2.7 GM/DL (3.2-4.5); BILIRUBIN,TOTAL 0.5 MG/DL (0.1-1.0); CALCIUM 8.5 MG/DL (8.5-10.1); CREATININE SERUM 0.9 MG/DL (0.60-1.30); POTASSIUM 4.2 MMOL/L (3.6-5.0); TOTAL PROTEIN 5.5 GM/DL (6.4-8.2)
[2018-09-12] MEDS: CATHETER FLUSH 10 ML SYR IV SCH ×3 (06:04→22:51)
--- NOTE | 2018-09-12 06:21 | Pulmonary Progress Note ---
JAMESON ALEMAN DO 09/12/18 0621: Subjective Subjective/Events-last exam PT is on BiPAP currently Sepsis Event Evaluation Height, Weight, BMI Height: 5'7.00" Weight: 167lbs. 6.0oz. 75.297014om; 25.2 BMI Method:Stated Focused Exam Lactate Level 09/09/18 20:43: Lactic Acid Level 1.35 Exam Exam Vital Signs Date Time Temp Pulse Resp B/P (MAP) Pulse Ox O2 Delivery O2 Flow Rate FiO2 09/12/18 04:21 113 39 94 100.00 09/12/18 04:00 97.4 115 32 144/80 (101) 72 Non Rebreather 10.00 09/12/18 03:47 74 OxyMask 10.00 09/12/18 00:23 97.8 113 32 129/86 (100) 46 Nasal Cannula 2.00 09/11/18 20:21 Nasal Cannula 2.00 09/11/18 20:05 Nasal Cannula 2.00 09/11/18 19:59 98.8 110 22 135/63 (87) 90 Nasal Cannula 2.00 09/11/18 16:00 97.4 99 22 166/74 (104) 91 Nasal Cannula 2.00 09/11/18 15:56 89 Nasal Cannula 2.00 09/11/18 12:00 97.8 95 22 168/88 (114) 92 Nasal Cannula 2.00 09/11/18 09:00 Nasal Cannula 2.00 09/11/18 08:36 97.7 102 20 197/90 (125) 92 Nasal Cannula 2.00 09/11/18 07:00 94 Nasal Cannula 2.00 I & O 09/12/18 07:00 Intake Total 1550 ml Output Total 675 ml Balance 875 ml Height & Weight Height: 5'7.00" Weight: 167lbs. 6.0oz. 75.381271vf; 25.2 BMI Method:Stated General Appearance: WD/WN, Chronically ill, Moderate Distress, Other (confused) HEENT: PERRL/EOMI, TMs Normal, Normal ENT Inspection, Pharynx Normal; No Moist Mucous Membranes Neck: Full Range of Motion, Normal Inspection, Non Tender, Supple Respiratory: Chest Non Tender, Lungs Clear, Normal Breath Sounds, No Accessory Muscle Use, No Respiratory Distress Cardiovascular: Regular Rate, Rhythm, No Edema, No Gallop, No JVD, Normal Peripheral Pulses, Systolic Murmur Capillary Refill: Less Than 3 Seconds Extremity: Normal Capillary Refill, No Pedal Edema Neurologic/Psychiatric: Alert, Disoriented Skin: Normal Color, Warm/Dry Results Lab Laboratory Tests 09/11/18 04:44 09/11/18 04:45 09/12/18 05:15 Assessment/Plan Assessment/Plan Acute respiratory distress -PT is DNR -currently on BiPAP Tachycardia UTI -Guevara culture -Check LA -Zosyn CP with pericardial effusion per CTscan -Cardiology is consulted -monitor -EKG Pneumobilia per CT - abdominal US HANG URRUTIA MD 09/12/18 0853: Subjective Date Seen by a Provider: September 12, 2018 Time Seen by a Provider: 08:53 Subjective/Events-last exam pt is not appropriately responsive - staff states that she has essentially not been appropriately verbally or physically responsive to staff since admission Review of Systems General: Other (unresponsive) Pulmonary: Other (on bipap) Gastrointestinal: No: Vomiting Genitourinary: Other (lucio in place) Neurological: Other (unresponsive) Exam Exam General Appearance: Moderate Distress (on bipap), Other (confused) Neck: Supple Respiratory: Decreased Breath Sounds Cardiovascular: Tachycardia Gastrointestinal: normal bowel sounds, non tender, soft Extremity: Pedal Edema, Slow Capillary Refill Neurologic/Psychiatric: Disoriented Skin: Cool, Cyanosis Assessment/Plan Assessment/Plan UTI CHEST PAIN - CT SCAN SHOWED PERICARDIAL EFFUSION PNEUMOBILIA ADVANCED DEMENTIA WITH DELIRIUM HYPERTENSION LEUKOCYTOSIS RECENT LEFT HIP FRACTURE UTI - ENTEROCOCCAL INFECTION -STOP ANTIBIOTICS - INITIATE COMFORT CARE PNEUMOBILIA - ULTRASOUND NEGATIVE ADVANCED DEMENTIA WITH DELIRIUM - SUPPORTIVE CARE ONLY HYPERTENSION - PT UNABLE TO TAKE PO MEDICATIONS Advance Care discuss with: family member (s) End of Life Care: Comfort Measures (recommended for patient to be on comfort care - sister informed in person and on phone - pt to be taken off of bipap when her family arrives from out of town) JAMESON ALEMAN DO September 12, 2018 06:21 HANG URRUTIA MD September 12, 2018 08:53
--- NOTE | 2018-09-12 07:43 | Diagnostic Imaging Report ---
INDICATION: Respiratory distress. Comparison made with prior examination 09/10/2018. FINDINGS: There is cardiomegaly. No moderate central pulmonary venous congestion. There is no pleural effusion or pneumothorax. Mediastinum is unremarkable. Patchy bibasilar infiltrates. IMPRESSION: Interval development of moderately severe congestive failure with patchy bibasilar infiltrates. Cardiomegaly. Dictated by: Dictated on workstation # [id number]
[2018-09-12 07:46] LABS: ABG BASE EXCESS -3.6 MMOL/L (-2.5-2.5); ABG OXYGEN SATURATION 93 % (94-100); ABG PCO2 30 MMHG (35-45); ABG PH 7.43 (7.37-7.43); ABG PO2 63 MMHG (79-93); ABG TCO2 21.3 MMOL/L (21.0-31.0); ALLENS TEST YES-POS; INSPIRED O2 100%
[2018-09-12 07:47] LABS: PATIENT TEMP 95.7; VENTILATOR NO
[2018-09-12 08:00] VITALS: BP 114/76
[2018-09-12] MEDS: LIDOCAINE 4% (SALONPAS) PATCH TOP SCH (09:00)
[2018-09-12] MEDS ORDERED: RT-ALBUTEROL/IPRATROPIUM 3 ML (DUONEB) VIAL INH PRN (09:30)
[2018-09-12] MEDS ORDERED: GLYCOPYRROLATE 0.2 MG/ML (ROBINUL) 2 ML VIAL IV PRN (09:30)
[2018-09-12] MEDS ORDERED: SALIVA STIMULANT MOUTH SPRAY (BIOTENE) 1.5 OZ MM PRN (09:30)
[2018-09-12] MEDS ORDERED: ARTIFICAL TEARS 0.4 ML UNIT DOSE (REFRESH PLUS) OU PRN (09:30)
[2018-09-12] MEDS ORDERED: PROMETHAZINE INJ 25 MG/ML (PHENERGAN) AMP IVP PRN (09:30)
[2018-09-12] MEDS ORDERED: BISACODYL 10 MG SUPP (DULCOLAX) PR PRN (09:30)
[2018-09-12] MEDS ORDERED: ACETAMINOPHEN 650 MG SUPP (TYLENOL) PR PRN (09:30)
[2018-09-12] MEDS ORDERED: ONDANSETRON 4 MG/2 ML (SDV) Z0FRAN IVP PRN (09:30)
--- NOTE | 2018-09-12 09:32 | Progress Note ---
Subjective Date Seen by a Provider: September 12, 2018 Time Seen by a Provider: 09:30 Subjective/Events-last exam PT NONRESPONSE - ON BIPAP Review of Systems PT UNABLE TO PARTICIPATE IN MEANINGFUL REVIEW OF SYSTEMS Focused Exam Lactate Level 09/09/18 20:43: Lactic Acid Level 1.35 Objective Exam Last Set of Vital Signs Vital Signs Date Time Temp Pulse Resp B/P (MAP) Pulse Ox O2 Delivery O2 Flow Rate FiO2 09/12/18 08:00 95.5 104 20 114/76 (89) 95 NIV Bilevel 09/12/18 06:44 100.00 Capillary Refill : Less Than 3 Seconds I&O Intake and Output 09/12/18 00:00 Intake Total 2720 ml Output Total 1100 ml Balance 1620 ml Intake Oral 480 ml IV Total 2240 ml Output Urine Total 1100 ml # Bowel Movements 3 General: Other (ALERT, BUT NOT ORIENTED TO PERSON/PLACE/TIME) HEENT: Atraumatic, Mucous Memb Moist/[place], Other (FOOD IN MOUTH, PT NOT FOLLOWING CUES TO SWALLOW) Lungs: Clear to Auscultation, Other (POOR EFFORT) Heart: Regular Rate Abdomen: Normal Bowel Sounds, Soft, No Tenderness Extremities: No Clubbing, No Cyanosis, No Edema Skin: No Significant Lesion (NO SIGNIFICANT LESION APPRECIATED ON BRIEF EXAM) Neuro: Other (PT UNABLE TO FOLLOW COMMANDS/DIRECTIONS) Psych/Mental Status: Other (PT CONFUSED) Results Lab Laboratory Tests 09/12/18 05:15: White Blood Count 22.6H, Red Blood Count 3.15L, Hemoglobin 9.9L, Hematocrit 31L , Mean Corpuscular Volume 99, Mean Corpuscular Hemoglobin 31, Mean Corpuscular Hemoglobin Concent 32, Red Cell Distribution Width 17.6H, Platelet Count 515H, Mean Platelet Volume 9.9, Sodium Level 139, Potassium Level 4.2, Chloride Level 108H, Carbon Dioxide Level 19L, Anion Gap 12, Blood Urea Nitrogen 17, Creatinine 0.90, Estimat Glomerular Filtration Rate 60, BUN/Creatinine Ratio 19 , Glucose Level 153H, Calcium Level 8.5, Corrected Calcium 9.5, Total Bilirubin 0.5, Aspartate Amino Transf (AST/SGOT) 14, Alanine Aminotransferase (ALT/SGPT) 9 , Alkaline Phosphatase 86, Total Protein 5.5L, Albumin 2.7L 09/12/18 07:42: Blood Gas Puncture Site L RAD, Blood Gas Patient Temperature 95.7, Arterial Blood pH 7.43, Arterial Blood Partial Pressure CO2 30L, Arterial Blood Partial Pressure O2 63L, Arterial Blood HCO3 20L, Arterial Blood Total CO2 21.3, Arterial Blood Oxygen Saturation 93L, Arterial Blood Base Excess -3.6L, Bernard Test YES-POS, Blood Gas Ventilator Setting NO, Blood Gas Inspired Oxygen 100% Microbiology 09/09/18 Blood Culture - Preliminary, Resulted No growth 09/09/18 Urine Culture - Preliminary, Resulted Enterococcus faecium Assessment/Plan Assessment/Plan Assess & Plan/Chief Complaint UTI CHEST PAIN - CT SCAN SHOWED PERICARDIAL EFFUSION PNEUMOBILIA ADVANCED DEMENTIA WITH DELIRIUM HYPERTENSION LEUKOCYTOSIS RECENT LEFT HIP FRACTURE UTI - ENTEROCOCCAL INFECTION - STOP TREATMENT DUE TO SEVERE DECLINE AND PLAN TO START PT ON COMFORT CARE ADVANCED DEMENTIA WITH DELIRIUM - SUPPORTIVE CARE HYPERTENSION - PT OFF OF MEDICATION DUE TO DECLINE AND PATIENT BEING ON COMFORT CARE RECENT LEFT HIP FRACTURE - SUPPORTIVE CARE. Clinical Quality Measures DVT/VTE Risk/Contraindication: Risk Factor Score Per Nursin RFS Level Per Nursing on Admit: 4+=Very High HANG URRUTIA MD September 12, 2018 09:32
--- NOTE | 2018-09-12 10:55 | NUR ---
PALLIATIVE CARE RN received consult on this patient who has had recent hip fx w repair and n ow is on CCMO p a decline in condition with need of BiPAP for SPo2 f 46%. Highly suspected that she has thrown a PE post hip repair. Family in room and very in tune to patient needs. Discussed CCMO and PCs role in her care. During patient visit it is noted that she had a couple episodes of whole body movement with grimacing and increased HR. Asked patient if she was in pain and she shook head "No",but I do not believe that she fully understands the meaning of the word pain or understands what she is experiencing r/t to her advanced dementia. Spoke to her nurse who will give her something for her pain/discomfort. Will continue to follow.
[2018-09-12] MEDS ORDERED: morphine INJ 4 MG/ML 1 ML (VIAL/SYRINGE) ONE (10:57)
[2018-09-12] MEDS: morphine INJ 4 MG/ML 1 ML (VIAL/SYRINGE) IVP PRN ×3 (11:07→22:51)
--- NOTE | 2018-09-12 11:10 | Cardiology Progress Note ---
Cardiology SOAP Progress Note Subjective: Not communicating. Objective: I&O/Vital Signs 09/12/18 09/12/18 09/12/18 09/12/18 00:23 03:47 04:00 04:21 Temp 97.8 97.4 Pulse 113 115 113 Resp 32 32 39 B/P (MAP) 129/86 (100) 144/80 (101) Pulse Ox 46 74 72 94 O2 Delivery Nasal Cannula OxyMask Non Rebreather O2 Flow Rate 2.00 10.00 10.00 100.00 09/12/18 09/12/18 06:44 08:00 Temp 95.5 Pulse 102 104 Resp 33 20 B/P (MAP) 114/76 (89) Pulse Ox 93 95 O2 Delivery NIV Bilevel O2 Flow Rate 100.00 09/11/18 23:59 Intake Total 1550 ml Output Total 400 ml Balance 1150 ml Weight (Pounds): 167 Weight (Ounces): 6.0 Weight (Calculated Kilograms): 75.200384 Constitutional: appears stated age; No apparent distress; well-developed, well- nourished Respiratory: No accessory muscle use, No respiratory distress, No chest tender , No chest expansion is symmetric; chest is bilaterally symmetric; No lungs clear to percussion; lungs clear to auscultation; No crackles, No rhonchi, No rales, No stridor, No wheezing, No pleural rub, No other Cardiovascular: regular rate-rhythm, S1 and S2, systolic murmur Gastrointestional: No tender, No soft, No round, No distended, No pulsatile mass, No organomegaly, No guarding, No rebound, No tenderness, No hernia, No mass, No audible bowel sounds, No abnormal bowel sounds, No abdominal bruits, No spleenomegaly, No other Extremities: No normal range of motion, No non-tender, No normal inspection, No pedal edema, No calf tenderness, No normal capillary refill, No pelvis stable , No calf tenderness, No inflammation, No pedal edema, No slow capillary refill , No swelling, No other, No abrasion, No clubbing, No cyanosis, No ecchymosis, No laceration, No no lower extremity edema bilateral, No significant edema, No tenderness, No wound Neurologic/Psychiatric: no motor/sensory deficits, normal mood/affect, disoriented x 3, power is 5/5 both on sides Skin: No normal color, No warm/dry, No cyanosis, No cool, No diaphoresis, No damp, No ecchymosis, No jaundice, No mottled, No pallor, No rash, No tattoos/ piercings, No ulcerations, No rash on exposed areas, No ulcerations on exposed areas, No other Results/Procedures: Labs Laboratory Tests 09/12/18 05:15: White Blood Count 22.6H, Red Blood Count 3.15L, Hemoglobin 9.9L, Hematocrit 31L , Mean Corpuscular Volume 99, Mean Corpuscular Hemoglobin 31, Mean Corpuscular Hemoglobin Concent 32, Red Cell Distribution Width 17.6H, Platelet Count 515H, Mean Platelet Volume 9.9, Sodium Level 139, Potassium Level 4.2, Chloride Level 108H, Carbon Dioxide Level 19L, Anion Gap 12, Blood Urea Nitrogen 17, Creatinine 0.90, Estimat Glomerular Filtration Rate 60, BUN/Creatinine Ratio 19 , Glucose Level 153H, Calcium Level 8.5, Corrected Calcium 9.5, Total Bilirubin 0.5, Aspartate Amino Transf (AST/SGOT) 14, Alanine Aminotransferase (ALT/SGPT) 9 , Alkaline Phosphatase 86, Total Protein 5.5L, Albumin 2.7L 09/12/18 07:42: Blood Gas Puncture Site L RAD, Blood Gas Patient Temperature 95.7, Arterial Blood pH 7.43, Arterial Blood Partial Pressure CO2 30L, Arterial Blood Partial Pressure O2 63L, Arterial Blood HCO3 20L, Arterial Blood Total CO2 21.3, Arterial Blood Oxygen Saturation 93L, Arterial Blood Base Excess -3.6L, Bernard Test YES-POS, Blood Gas Ventilator Setting NO, Blood Gas Inspired Oxygen 100% Microbiology 09/09/18 Blood Culture - Preliminary, Resulted No growth 09/09/18 Urine Culture - Final, Complete Enterococcus faecium A/P: Assessment/Dx: Reproducible chest pain, UTI Plan: Negative serial troponin with negative EKG. Acute coronary syndrome is ruled out. However I believe the chest pain is noncardiac since it is very reproducible and the patient had severe pain when I was palpating her chest and pressed on the sternal area. I believe it could be costochondritis as well. Echocardiogram done 09/10/2018 shows normal LV function with moderate diastolic dysfunction. Mild concentric LVH. Moderate to severe mitral regurgitation. Moderate tricuspid regurgitation. Moderate pulmonary hypertension. Dementia, defer to Dr. Michelle. UTI, antibiotics as per the primary team. Thank you for your consultation. Please call me if you have any questions. Christine Pedraza MD, FACP, FACC, FSCAI, FHRS, CCDS Interventional Cardiology Cardiac Electrophysiology Vascular Medicine and Endovascular Interventions Focused Exam Lactate Level 09/09/18 20:43: Lactic Acid Level 1.35 Lo PEDRAZA MD September 12, 2018 11:10
[2018-09-12 11:24] VITALS: BP 128/66
--- NOTE | 2018-09-12 13:35 | NUR ---
Pastoral care visit, large family around bedside during my visit family merchandise shopper also came in, I offered my support and encouragement.
--- NOTE | 2018-09-12 14:59 | NUR ---
Palliative Care RN to check on patient. She is surrounded by family and this RN has repeated the previous education for this new group. Patient is still responding minimally, shaking head no to the question of pain and do you need anything. She appears comfortable during this encounter, RR still slightly tachypneic 26 or so, HR is not rapid but is irregular. No edema or mottling to LE. He ears are thin and curling so anticipate that she will pass fairly quickly if not for the BIPAP. anticipate this to be discontinued once her sister has arrived. Comfort courtesy cart in room. No current needs and al questions answered to the families satisfaction.
[2018-09-12 16:00] VITALS: BP 129/85
[2018-09-12] MEDS: LIDOCAINE PATCH REMOVAL TP SCH (17:12)
[2018-09-12] MEDS: NS IV 1000 ML 1,000 ML IV SCH (23:45)
[2018-09-13] MEDS: LORazepam INJ 2 MG/ML (ATIVAN) VIAL IVP PRN ×2 (05:06→13:34)
[2018-09-13] MEDS: CATHETER FLUSH 10 ML SYR IV SCH ×2 (06:36→13:33)
--- NOTE | 2018-09-13 08:26 | Progress Note ---
Subjective Date Seen by a Provider: September 13, 2018 Time Seen by a Provider: 08:22 Subjective/Events-last exam PT NON RESPONSIVE - ON BIPAP Review of Systems PT UNABLE TO PARTICIPATE IN MEANINGFUL REVIEW OF SYSTEMS Objective Exam Last Set of Vital Signs Vital Signs Date Time Temp Pulse Resp B/P (MAP) Pulse Ox O2 Delivery O2 Flow Rate FiO2 09/13/18 07:03 29 80.00 09/13/18 04:00 NIV Bilevel 09/12/18 21:11 96 09/12/18 20:00 96.1 112 09/12/18 16:00 129/85 (100) Capillary Refill : Less Than 3 Seconds I&O Intake and Output 09/13/18 00:00 Intake Total 120 ml Output Total 725 ml Balance -605 ml Intake Oral 0 ml IV Total 120 ml Output Urine Total 725 ml General: Other (ALERT, BUT NOT ORIENTED TO PERSON/PLACE/TIME) HEENT: Atraumatic, Mucous Memb Moist/[place], Other (FOOD IN MOUTH, PT NOT FOLLOWING CUES TO SWALLOW) Lungs: Clear to Auscultation, Other (POOR EFFORT) Heart: Regular Rate Abdomen: Normal Bowel Sounds, Soft, No Tenderness Extremities: No Clubbing, No Cyanosis, No Edema Skin: No Significant Lesion (NO SIGNIFICANT LESION APPRECIATED ON BRIEF EXAM) Neuro: Other (PT UNABLE TO FOLLOW COMMANDS/DIRECTIONS) Psych/Mental Status: Other (PT CONFUSED) Results Lab Microbiology 09/09/18 Blood Culture - Preliminary, Resulted No growth 09/09/18 Urine Culture - Final, Complete Enterococcus faecium Assessment/Plan Assessment/Plan Assess & Plan/Chief Complaint UTI CHEST PAIN - CT SCAN SHOWED PERICARDIAL EFFUSION PNEUMOBILIA ADVANCED DEMENTIA WITH DELIRIUM HYPERTENSION LEUKOCYTOSIS RECENT LEFT HIP FRACTURE PT ON COMFORT CARE - WHEN LAST FAMILY MEMBER COMES INTO TOWN - PLAN IS FOR PT TO BE TAKEN OFF OF BIPAP. Clinical Quality Measures DVT/VTE Risk/Contraindication: Risk Factor Score Per Nursin RFS Level Per Nursing on Admit: 4+=Very High AHNG URRUTIA MD September 13, 2018 08:26
[2018-09-13] MEDS ORDERED: ACET-2267 PO (08:40)
[2018-09-13] MEDS ORDERED: PROM25TA14 PO (08:40)
[2018-09-13] MEDS: LIDOCAINE 4% (SALONPAS) PATCH TOP SCH (10:04)
[2018-09-13] MEDS: morphine INJ 4 MG/ML 1 ML (VIAL/SYRINGE) IVP PRN ×2 (10:04→17:04)
--- NOTE | 2018-09-13 12:20 | Cardiology Progress Note ---
Cardiology SOAP Progress Note Subjective: Lethargic, on nonrebreather. Objective: I&O/Vital Signs 09/13/18 09/13/18 09/13/18 09/13/18 02:50 04:00 07:03 08:00 Resp 26 29 O2 Delivery NIV Bilevel NIV Bilevel O2 Flow Rate 80.00 80.00 80.00 80.00 14.00 15.00 09/13/18 09/13/18 09:00 10:20 Pulse 115 Resp 33 Pulse Ox 96 O2 Delivery NIV Bilevel O2 Flow Rate 15.00 80.00 09/13/18 00:00 Intake Total 0 ml Output Total 450 ml Balance -450 ml Weight (Pounds): 167 Weight (Ounces): 6.0 Weight (Calculated Kilograms): 75.862126 Constitutional: appears stated age; No apparent distress; well-developed, well- nourished Respiratory: No accessory muscle use, No respiratory distress, No chest tender , No chest expansion is symmetric; chest is bilaterally symmetric; No lungs clear to percussion; lungs clear to auscultation; No crackles, No rhonchi, No rales, No stridor, No wheezing, No pleural rub, No other Cardiovascular: regular rate-rhythm, S1 and S2, systolic murmur Gastrointestional: No tender, No soft, No round, No distended, No pulsatile mass, No organomegaly, No guarding, No rebound, No tenderness, No hernia, No mass, No audible bowel sounds, No abnormal bowel sounds, No abdominal bruits, No spleenomegaly, No other Extremities: No normal range of motion, No non-tender, No normal inspection, No pedal edema, No calf tenderness, No normal capillary refill, No pelvis stable , No calf tenderness, No inflammation, No pedal edema, No slow capillary refill , No swelling, No other, No abrasion, No clubbing, No cyanosis, No ecchymosis, No laceration, No no lower extremity edema bilateral, No significant edema, No tenderness, No wound Neurologic/Psychiatric: no motor/sensory deficits, normal mood/affect, disoriented x 3, power is 5/5 both on sides Skin: No normal color, No warm/dry, No cyanosis, No cool, No diaphoresis, No damp, No ecchymosis, No jaundice, No mottled, No pallor, No rash, No tattoos/ piercings, No ulcerations, No rash on exposed areas, No ulcerations on exposed areas, No other Results/Procedures: Labs Microbiology 09/09/18 Blood Culture - Preliminary, Resulted No growth 09/09/18 Urine Culture - Final, Complete Enterococcus faecium A/P: Assessment/Dx: Reproducible chest pain, UTI, Respiratory failure. Plan: Negative serial troponin with negative EKG. Acute coronary syndrome is ruled out. However I believe the chest pain is noncardiac since it is very reproducible and the patient had severe pain when I was palpating her chest and pressed on the sternal area. I believe it could be costochondritis as well. Echocardiogram done 09/10/2018 shows normal LV function with moderate diastolic dysfunction. Mild concentric LVH. Moderate to severe mitral regurgitation. Moderate tricuspid regurgitation. Moderate pulmonary hypertension. No pericardial effusion. Acute respiratory failure, on a nonrebreather. Dementia, defer to Dr. Michelle. UTI, antibiotics as per the primary team. Thank you for your consultation. Please call me if you have any questions. Christine Pedraza MD, FACP, FACC, FSCAI, FHRS, CCDS Interventional Cardiology Cardiac Electrophysiology Vascular Medicine and Endovascular Interventions Lo PEDRAZA MD September 13, 2018 12:20
--- NOTE | 2018-09-13 13:17 | Pulmonary Progress Note ---
Subjective Time Seen by a Provider: 13:15 Subjective/Events-last exam Pt is on BiPAP she is a DNR. Family is expected to make pt comfort measures only once all family has arrived. call center team leader is also following. Sepsis Event Evaluation Height, Weight, BMI Height: 5'7.00" Weight: 167lbs. 6.0oz. 75.219136sm; 25.2 BMI Method:Stated Exam Exam Vital Signs Date Time Temp Pulse Resp B/P (MAP) Pulse Ox O2 Delivery O2 Flow Rate FiO2 09/13/18 10:20 115 33 80.00 09/13/18 09:00 96 NIV Bilevel 15.00 09/13/18 08:00 NIV Bilevel 80.00 15.00 09/13/18 07:03 29 80.00 09/13/18 04:00 NIV Bilevel 80.00 14.00 09/13/18 02:50 26 80.00 09/13/18 00:00 NIV Bilevel 80.00 14.00 09/12/18 21:11 24 96 80.00 09/12/18 20:00 NIV Bilevel 09/12/18 20:00 96.1 112 21 99 NIV Bilevel 80.00 14.00 09/12/18 19:35 122 27 96 80.00 09/12/18 16:00 96.9 112 22 129/85 (100) 99 NIV Bilevel 80.00 14.00 09/12/18 14:50 95.4 09/12/18 14:20 95.4 I & O 09/13/18 07:00 Intake Total 120 ml Output Total 450 ml Balance -330 ml Height & Weight Height: 5'7.00" Weight: 167lbs. 6.0oz. 75.768485rv; 25.2 BMI Method:Stated General Appearance: WD/WN, Chronically ill, Moderate Distress, Other (confused) HEENT: PERRL/EOMI, TMs Normal, Normal ENT Inspection, Pharynx Normal; No Moist Mucous Membranes Neck: Full Range of Motion, Normal Inspection, Non Tender, Supple Respiratory: Chest Non Tender, Lungs Clear, Normal Breath Sounds, No Accessory Muscle Use, No Respiratory Distress Cardiovascular: Regular Rate, Rhythm, No Edema, No Gallop, No JVD, Normal Peripheral Pulses, Systolic Murmur Capillary Refill: Less Than 3 Seconds Extremity: Normal Capillary Refill, No Pedal Edema Neurologic/Psychiatric: Alert, Disoriented Skin: Normal Color, Warm/Dry Results Lab Laboratory Tests 09/12/18 05:15 Assessment/Plan Assessment/Plan Acute respiratory distress -PT is DNR -currently on BiPAP Tachycardia UTI -Zosyn CP with pericardial effusion per CTscan -Cardiology is consulted -monitor -EKG Pneumobilia per CT - abdominal US Probable comfort measures once family has arrived. JAMESON ALEMAN DO September 13, 2018 13:17
--- NOTE | 2018-09-13 17:00 | NUR ---
FAMILY AT PATIENTS BEDSIDE. RT AT BEDSIDE TO REMOVE BIPAP PER FAMILY REQUEST AT THIS TIME. IV MORPHINE GIVEN FOR AIR HUNGER.
--- NOTE | 2018-09-13 17:50 | NUR ---
FAMILY NOTIFIED NURSING STAFF OF CHANGE IN PATIENT'S CONDITION. RN AUSCULTATED HEART AND LUNG SOUNDS. NO HEART OR LUNG SOUNDS PRESENT. FAMILY NOTIFIED OF PATIENT'S PASSING.
--- NOTE | 2018-09-13 18:31 | NUR ---
FAMILY REQUESTING [facility] FOR MORTUARY SERVICES. [facility] NOTIFIED AT THIS TIME.
== END 2018-09-13 17:50 | disposition expired | DRG 315 ==
LOC: EDUNIT# 14:57 → ER 14:58 → ICU 17:50 → UNDOADMOB 17:50 → ICU 18:45 → INTOOBSV 09-10 10:50 → OBSVTOIN 09-10 10:50 → 4TH 09-10 12:15 → ICU 09-10 12:15 → 4TH 09-11 15:24 → UNDODISIN 09-13 17:50
PROVIDERS: ADMIT Internal Medicine; ATTEND Internal Medicine
DX: I31.3 Pericardial effusion (noninflammatory) (principal); N30.00 Acute cystitis without hematuria; B95.2 Enterococcus as the cause of diseases classified elsewhere; R06.03 Acute respiratory distress; F03.91 Unspecified dementia, unspecified severity, with behavioral disturbance; M94.0 Chondrocostal junction syndrome [Tietze]; R07.89 Other chest pain; Z66 Do not resuscitate; Z51.5 Encounter for palliative care; K83.8 Other specified diseases of biliary tract; R11.0 Nausea; R06.02 Shortness of breath; I10 Essential (primary) hypertension; I08.1 Rheumatic disorders of both mitral and tricuspid valves; F41.9 Anxiety disorder, unspecified; R79.1 Abnormal coagulation profile; K59.00 Constipation, unspecified; D72.829 Elevated white blood cell count, unspecified; I27.20 Pulmonary hypertension, unspecified; D47.3 Essential (hemorrhagic) thrombocythemia; R54 Age-related physical debility; Z87.19 Personal history of other diseases of the digestive system
CPT/HCPCS: 36415; 51702; 71045; 71275; 76705; 80048; 80053; 80061; 81000; 82805; 83605; 83690; 83735; 83874; 83880; 84484; 85007; 85025; 85027; 85379; 85610; 85730; 87040; 87077; 87088; 87186; 93005; 93041; 93306; 94640; 94660; 96374